=== PATIENT | male | born 1945 | race Caucasian/White ===

== ENCOUNTER 2018-08-13 12:36 | Inpatient (IN) | payer MEDICARE ==
--- NOTE | 2018-08-13 13:33 | ED ---
General Adult HPI - General Chief complaint: Weakness Stated complaint: weakness Source: patient, family Mode of arrival: wheelchair Limitations: no limitations - History of Present Illness Initial comments: Dictation was produced using [employer] dictation software. please excuse any grammatical, word or spelling errors. Chief Complaint: 73-year-old male past medical history of hypertension, atrial fibrillation, dyslipidemia, coronary artery disease presents with worsening weakness. History of Present Illness: Patient is a 73 year old male with multiple comorbidities presents with worsening weakness. Patient used to live in [place] moved to [place] as a nursing home plan. However, since his debility began to worsen and his medical problems became more severe [facility] [place] where his family is. Patient just got establish with a primary care physician. He has a scheduled echocardiogram next week. He also had some blood tests performed. Patient does have a history of cardiac disease however does not know exactly what it is. Patient's been on Xarelto for irregular heartbeat in the past. Patient has no complaints at this time. He was brought here by his who states that his physical debility has been acutely worsening in the last 34 weeks per she is noticed a severe decline weekly. He has been having difficulty walking and getting dressed. The ROS documented in this emergency department record has been reviewed and confirmed by me. Those systems with pertinent positive or negative responses have been documented in the HPI. All other systems are other negative and/or noncontributory. - Related Data Home Medications Medication Instructions Recorded Confirmed Allopurinol [Zyloprim] 100 mg PO DAILY 08/13/18 08/13/18 Aspirin [Adult Low Dose Aspirin EC] 81 mg PO DAILY 08/13/18 08/13/18 Calcium Carbonate [Calcium] 600 mg PO DAILY 08/13/18 08/13/18 Furosemide [Lasix] 20 mg PO BID 08/13/18 08/13/18 Levothyroxine Sodium [Synthroid] 88 mcg PO DAILY 08/13/18 08/13/18 Metoprolol Succinate [Toprol XL] 25 mg PO HS 08/13/18 08/13/18 Pravastatin Sodium [Pravachol] 20 mg PO HS 08/13/18 08/13/18 Quinapril HCl 40 mg PO DAILY 08/13/18 08/13/18 Allergies Allergy/AdvReac Type Severity Reaction Status Date / Time No Known Allergies Allergy Verified 08/13/18 13:31 Review of Systems ROS Statement: Those systems with pertinent positive or pertinent negative responses have been documented in the HPI. ROS Other: All systems not noted in ROS Statement are negative. Past Medical History Past Medical History: Hypertension, Prostate Disorder History of Any Multi-Drug Resistant Organisms: None Reported Past Surgical History: Prostate Surgery Past Psychological History: No Psychological Hx Reported Smoking Status: Former smoker Past Alcohol Use History: Occasional Past Drug Use History: None Reported General Exam - General Exam Comments Initial Comments: PHYSICAL EXAM: General Impression: Alert and oriented x3, not in acute distress HEENT: Normocephalic atraumatic, extra-ocular movements intact, pupils equal and reactive to light bilaterally, mucous membranes moist. Cardiovascular: Heart regular rate and rhythm, S1&S2 audible, no murmurs, rubs or gallops Chest: Lungs clear to auscultation bilaterally, no rhonchi, no wheeze, no rales Abdomen: Bowel sounds present, abdomen soft, non-tender, non-distended, no organomegaly Musculoskeletal: Pulses present and equal in all extremities, pitting edema bilaterally Motor: Power 5/5 bilaterally, no focal deficits noted Neurological: CN II-XII grossly intact, no focal motor or sensory deficits noted Skin: Intact with no visualized rashes Psych: Normal affect and mood Limitations: no limitations Course Vital Signs 08/13/18 12:39 Temperature 97.6 F Pulse Rate 68 Respiratory 18 Rate Blood Pressure 173/78 O2 Sat by Pulse 97 Oximetry Medical Decision Making - Medical Decision Making ED course: 73-year-old male with multiple comorbidities presents with worsening difficulties with his activities of daily living. He has no specific complaints at this time. vital signs on arrival are within acceptable limits.Laboratory evaluation obtained. CBC is unremarkable. Coag panel is unremarkable. Metabolic panel is unremarkable. Urinalysis shows findings of urinary tract infection. Patient continues to endorse no significant pain to his flank region course empirically. Patient denies any genital pain. exam was performed showing no tenderness to the testicles. Patient denies any pain with bowel movements. Patient is significantly weak. I believe he would benefit from inpatient observation. Family is understandable and agreeable to this plan. Patient given 1 g of ceftriaxone. At this point there is no clinical suspicion of epididymitis or prostatitis. However patient has been having significant debility. EKG interpretation: Ventricular rate 69,. Interval to any, QRS 144, QTC 462. No ND prolongation, no QTC prolongation, no ST or T-wave changes noted. There is a right bundle branch pattern. Overall, this EKG is unremarkable - Lab Data Result diagrams: 08/13/18 13:15 08/13/18 13:15 Lab Results 08/13/18 08/13/18 08/13/18 Range/Units 13:15 13:15 13:15 WBC 7.1 (3.8-10.6) k/uL RBC 4.98 (4.30-5.90) m/uL Hgb 15.5 (13.0-17.5) gm/dL Hct 46.2 (39.0-53.0) % MCV 92.8 (80.0-100.0) fL MCH 31.0 (25.0-35.0) pg MCHC 33.4 (31.0-37.0) g/dL RDW 14.0 (11.5-15.5) % Plt Count 167 (150-450) k/uL Neutrophils % 72 % Lymphocytes % 14 % Monocytes % 8 % Eosinophils % 4 % Basophils % 0 % Neutrophils # 5.1 (1.3-7.7) k/uL Lymphocytes # 1.0 (1.0-4.8) k/uL Monocytes # 0.6 (0-1.0) k/uL Eosinophils # 0.3 (0-0.7) k/uL Basophils # 0.0 (0-0.2) k/uL PT (9.0-12.0) sec INR (<1.2) APTT (22.0-30.0) sec Sodium 141 (137-145) mmol/L Potassium 4.7 (3.5-5.1) mmol/L Chloride 107 (98-107) mmol/L Carbon Dioxide 27 (22-30) mmol/L Anion Gap 7 mmol/L BUN 29 H (9-20) mg/dL Creatinine 1.26 H (0.66-1.25) mg/dL Est GFR (CKD-EPI)AfAm 64 (>60 ml/min/1.73 sqM) Est GFR (CKD-EPI)NonAf 55 (>60 ml/min/1.73 sqM) Glucose 99 (74-99) mg/dL Plasma Lactic Acid Corwin (0.7-2.0) mmol/L Calcium 9.6 (8.4-10.2) mg/dL Magnesium 2.3 (1.6-2.3) mg/dL Total Bilirubin 0.9 (0.2-1.3) mg/dL AST 18 (17-59) U/L ALT 26 (21-72) U/L Alkaline Phosphatase 102 (38-126) U/L Total Creatine Kinase 42 L (55-170) U/L CK-MB (CK-2) 0.8 (0.0-2.4) ng/mL CK-MB (CK-2) Rel Index 1.9 Troponin I <0.012 (0.000-0.034) ng/mL Total Protein 7.0 (6.3-8.2) g/dL Albumin 3.8 (3.5-5.0) g/dL Urine Color Urine Appearance (Clear) Urine pH (5.0-8.0) Ur Specific Aqu[place] (1.001-1.035) Urine Protein (Negative) Urine Glucose (UA) (Negative) Urine Ketones (Negative) Urine Blood (Negative) Urine Nitrite (Negative) Urine Bilirubin (Negative) Urine Urobilinogen (<2.0) mg/dL Ur Leukocyte Esterase (Negative) Urine RBC (0-5) /hpf Urine WBC (0-5) /hpf Ur Squamous Epith Cells (0-4) /hpf 08/13/18 08/13/18 08/13/18 Range/Units 13:15 13:45 14:10 WBC (3.8-10.6) k/uL RBC (4.30-5.90) m/uL Hgb (13.0-17.5) gm/dL Hct (39.0-53.0) % MCV (80.0-100.0) fL MCH (25.0-35.0) pg MCHC (31.0-37.0) g/dL RDW (11.5-15.5) % Plt Count (150-450) k/uL Neutrophils % % Lymphocytes % % Monocytes % % Eosinophils % % Basophils % % Neutrophils # (1.3-7.7) k/uL Lymphocytes # (1.0-4.8) k/uL Monocytes # (0-1.0) k/uL Eosinophils # (0-0.7) k/uL Basophils # (0-0.2) k/uL PT 9.8 (9.0-12.0) sec INR 1.0 (<1.2) APTT 20.1 L (22.0-30.0) sec Sodium (137-145) mmol/L Potassium (3.5-5.1) mmol/L Chloride (98-107) mmol/L Carbon Dioxide (22-30) mmol/L Anion Gap mmol/L BUN (9-20) mg/dL Creatinine (0.66-1.25) mg/dL Est GFR (CKD-EPI)AfAm (>60 ml/min/1.73 sqM) Est GFR (CKD-EPI)NonAf (>60 ml/min/1.73 sqM) Glucose (74-99) mg/dL Plasma Lactic Acid Corwin 1.0 (0.7-2.0) mmol/L Calcium (8.4-10.2) mg/dL Magnesium (1.6-2.3) mg/dL Total Bilirubin (0.2-1.3) mg/dL AST (17-59) U/L ALT (21-72) U/L Alkaline Phosphatase (38-126) U/L Total Creatine Kinase (55-170) U/L CK-MB (CK-2) (0.0-2.4) ng/mL CK-MB (CK-2) Rel Index Troponin I (0.000-0.034) ng/mL Total Protein (6.3-8.2) g/dL Albumin (3.5-5.0) g/dL Urine Color Yellow Urine Appearance Cloudy (Clear) Urine pH 6.0 (5.0-8.0) Ur Specific Aqu[place] 1.019 (1.001-1.035) Urine Protein 1+ H (Negative) Urine Glucose (UA) Negative (Negative) Urine Ketones Negative (Negative) Urine Blood Small H (Negative) Urine Nitrite Positive (Negative) Urine Bilirubin Negative (Negative) Urine Urobilinogen <2.0 (<2.0) mg/dL Ur Leukocyte Esterase Large H (Negative) Urine RBC 30 H (0-5) /hpf Urine WBC >182 H (0-5) /hpf Ur Squamous Epith Cells <1 (0-4) /hpf Disposition Clinical Impression: Complicated urinary tract infection Disposition: ADMITTED IP TO THIS HOSP Condition: Fair Is patient prescribed a controlled substance at d/c from ED?: No Referrals: George Renteria MD [Primary Care Provider] - 1-2 days Decision Time: 15:19
[2018-08-13 13:36] LABS: Basophils % (A) 0 %; Eosinophils # (A) 0.3 k/uL (0-0.7); Eosinophils % (A) 4 %; HCT 46.2 % (39.0-53.0); HGB 15.5 gm/dL (13.0-17.5); Lymphocytes % (A) 14 %; MCHC 33.4 g/dL (31.0-37.0); MCV 92.8 fL (80.0-100.0); Mean Platelet Volume 9.1; Monocytes # (A) 0.6 k/uL (0-1.0); Monocytes % (A) 8 %; Neutrophils # (A) 5.1 k/uL (1.3-7.7); Neutrophils % (A) 72 %; Platelet Count 167 k/uL (150-450); RBC 4.98 m/uL (4.30-5.90); WBC 7.1 k/uL (3.8-10.6)
[2018-08-13 13:46] LABS: Albumin 3.8 g/dL (3.5-5.0); Calcium 9.6 mg/dL (8.4-10.2); Magnesium 2.3 mg/dL (1.6-2.3); Potassium 4.7 mmol/L (3.5-5.1); Total Bilirubin 0.9 mg/dL (0.2-1.3)
[2018-08-13 13:56] LABS: Creatine Kinase 42 U/L (55-170)
[2018-08-13 14:08] LABS: Creatine Kinase MB 0.8 ng/mL (0.0-2.4); Troponin I <0.012 ng/mL (0.000-0.034)
[2018-08-13 14:34] LABS: Appearance,Urine Cloudy (Clear); Bilirubin,Urine Negative (Negative); Blood,Urine Small (Negative); Color,Urine Yellow; Glucose,Urine (UA) Negative (Negative); Ketones,Urine Negative (Negative); Leukocyte Esterase,Urine Large (Negative); Nitrite,Urine Positive (Negative); Protein,Urine 1+ (Negative); RBC,Urine 30 /hpf (0-5); Specific Gravity,Urine 1.019 (1.001-1.035); Squamous Epithelial Cell,Urine <1 /hpf (0-4); Urobilinogen,Urine <2.0 mg/dL (<2.0); WBC,Urine >182 /hpf (0-5)
--- NOTE | 2018-08-13 14:36 | CT ---
EXAMINATION TYPE: CT brain wo con DATE OF EXAM: 08/13/2018 COMPARISON: None HISTORY: Weakness CT DLP: 1266.4 mGycm Automated exposure control for dose reduction was used. TECHNIQUE: CT scan of the head is performed without contrast. FINDINGS: There is no acute intracranial hemorrhage or midline shift identified. There is diffuse v entricular and sulcal prominence consistent with diffuse age-related cerebral atrophy. Old CSF attenu ated lacunar injuries are seen of the rebolledo radiata bilaterally on image 35 and 38 on the left. Left basal ganglia calcifications are incidentally seen inferiorly. There is low-attenuation in the periv entricular white matter consistent with chronic small vessel ischemic change. The globes are intact. Mild mucosal thickening is seen within the right maxillary sinus, sphenoid sinus, and ethmoid sinuse s. Remaining paranasal sinuses and mastoid air cells are well aerated. Osteoma is incidentally seen w ithin the right frontal sinus. IMPRESSION: No acute intracranial hemorrhage or midline shift. Bilateral old rebolledo radiata lacunar injuries, diffuse age-related cerebral atrophy and chronic small vessel ischemic change noted.
[2018-08-13 14:39] LABS: Prothrombin Time 9.8 sec (9.0-12.0)
[2018-08-13 14:42] LABS: Partial Thromboplastin Time 20.1 sec (22.0-30.0)
--- NOTE | 2018-08-13 14:45 | XR ---
EXAMINATION TYPE: XR chest 2V DATE OF EXAM: 08/13/2018 COMPARISON: NONE HISTORY: Weakness TECHNIQUE: Frontal and lateral views of the chest are obtained. FINDINGS: There is no focal air space opacity, pleural effusion, or pneumothorax seen. Minimal pulmo nary vascular congestion is seen. The cardiac silhouette size is mildly enlarged. The osseous stru ctures are intact. IMPRESSION: Cardiac enlargement and mild pulmonary vascular congestion suggest mild decompensated co ngestive heart failure.
[2018-08-13] MEDS ORDERED: NALOXONE 0.4 MG/ML 1 ML VIAL IV PRN (15:19)
[2018-08-13] MEDS ORDERED: ACETAMINOPHEN TAB 325 MG TAB PO PRN (15:19)
[2018-08-13] MEDS ORDERED: ONDANSETRON 4 MG/2 ML VIAL IVP PRN (15:19)
[2018-08-13] MEDS: SODIUM CHLORIDE 0.9% 1,000 ML IV SCH (16:03)
[2018-08-13 18:17] VITALS: BMI 29.9
[2018-08-13] MEDS: METOPROLOL SUCCINATE (ER) 25 MG TAB.ER.24H PO SCH (22:00)
[2018-08-13] MEDS: PRAVASTATIN SODIUM 20 MG TAB PO SCH (22:00)
[2018-08-14] MEDS: LEVOTHYROXINE 88 MCG TAB PO SCH (05:50)
[2018-08-14] MEDS: hydrALAZINE HCL 20 MG/ML 1 ML VIAL IVP PRN (06:44)
[2018-08-14] MEDS: TAMSULOSIN 0.4 MG CAP.ER.24H PO SCH (06:44)
[2018-08-14] MEDS: CALCIUM CARBONATE 500 MG CHEWABLE PO SCH (08:25)
[2018-08-14] MEDS: ALLOPURINOL 100 MG TAB PO SCH (08:25)
[2018-08-14] MEDS: ASPIRIN 81 MG PO SCH (08:25)
--- NOTE | 2018-08-14 16:17 | P.HPIM ---
History of Present Illness H&P Date: 08/14/18 73 years old male patient of mine who I just establish a month ago comes in with increased weakness, shortness of breath, balance abnormality with confusion according to the bedside. Patient has a past medical history of hypertension, atrial fibrillation not on any anticoagulation except for aspirin , hyperlipidemia, no history of coronary artery disease nor diabetes.patient has a history of BPH and some surgical procedure done in [place] which was followed by hematuria leading to holding of her liquids. on evaluation, patient stated he feels better than yesterday. He does have some degree of gait instability. Vitals assessed in the ER suggested temp of 98.3, pulse rate 67, blood pressure 144/73 saturating well on room air. Labs suggestive of creatinine 1.29, BUN 29 no baseline available. Urinalysis was positive for urinary tract infection. Patient was initiated on ceftriaxone in the ER received was told. There is a concern for CHF with patient's increased shortness of breath and episode of dizziness at home. Echocardiogram is ordered. BNP ordered. Hold Lasix for concern of acute kidney injury though patient may have some chronic kidney disease. Monitor daily weights and input and output. Orthostatics ordered. Review of Systems Constitutional: Denies chills, Denies fever, increased weakness Eyes: denies decreased vision, denies diplopia, denies discharge, denies pain Ears: deny: decreased hearing Ears, nose, mouth and throat: Denies dental pain, Denies headache, Denies nasal discharge, Denies nose pain Cardiovascular: Denies chest pain, Denies decreased exercise tolerance, Denies edema, Denies high blood pressure, Denies irregular heart beat, Denies palpitations, Denies paroxysmal nocturnal dyspnea, Denies rapid heart beat, endorses shortness of breath Respiratory: Denies congestion, Denies cough, Denies cough with sputum, endorses dyspnea, Denies home oxygen, Denies wheezing Gastrointestinal: Denies abdominal pain, Denies change in bowel habits, Denies coffee ground emesis, Denies early satiety, Denies excessive gas, Denies heartburn, Denies hematemesis, Denies hematochezia, Denies loss of appetite, Denies nausea, Denies vomiting Genitourinary: Denies dysuria, Denies flank pain, Denies kidney stones, Denies menorrhagia, Denies urgency, Denies urinary frequency endorses urinary retention and daily straight cath 4 times a day Musculoskeletal: Denies gait dysfunction, Denies limitation of motion, Denies morning stiffness, Denies muscle cramps Integumentary: Denies rash, Denies wounds, Denies brittle nails, Denies change in hair/nails, Denies darkening of skin Neurological: Denies balance difficulties, Denies change in speech, Denies double vision, Denies gait dysfunction, Denies loss of vision, Denies motor disturbance, Denies numbness, Denies paralysis, Denies paresthesias, Denies seizures Psychiatric: Denies anxiety, Denies depression Endocrine: Denies excessive sweating, Denies excessive thirst, Denies high blood sugars, Denies palpitations Hematologic/Lymphatic: Denies easy bruising, Denies lymphadenopathy Past Medical History Past Medical History: Hypertension, Prostate Disorder History of Any Multi-Drug Resistant Organisms: None Reported Past Surgical History: Prostate Surgery Past Psychological History: No Psychological Hx Reported Additional Psychological History / Comment(s): lives at home with . Smoking Status: Former smoker Past Alcohol Use History: Occasional Past Drug Use History: None Reported - Past Family History Mother Family Medical History: Cancer Additional Family Medical History / Comment(s): Breast cancer Father Family Medical History: Cancer (Bone cancer/brittle bone disease) Medications and Allergies Home Medications Medication Instructions Recorded Confirmed Type Allopurinol [Zyloprim] 100 mg PO DAILY 08/13/18 08/13/18 History Aspirin [Adult Low Dose Aspirin EC] 81 mg PO DAILY 08/13/18 08/13/18 History Calcium Carbonate [Calcium] 600 mg PO DAILY 08/13/18 08/13/18 History Furosemide [Lasix] 20 mg PO BID 08/13/18 08/13/18 History Levothyroxine Sodium [Synthroid] 88 mcg PO DAILY 08/13/18 08/13/18 History Metoprolol Succinate [Toprol XL] 25 mg PO HS 08/13/18 08/13/18 History Pravastatin Sodium [Pravachol] 20 mg PO HS 08/13/18 08/13/18 History Quinapril HCl 40 mg PO DAILY 08/13/18 08/13/18 History Allergies Allergy/AdvReac Type Severity Reaction Status Date / Time No Known Allergies Allergy Verified 08/13/18 13:31 Physical Exam Vitals: Vital Signs Temp Pulse Pulse Resp BP BP Pulse Ox 08/14/18 15:19 18 08/14/18 15:09 97.3 F L 67 18 138/63 95 08/14/18 13:36 98.3 F 67 18 144/73 97 08/14/18 08:34 169/94 08/14/18 08:00 16 08/14/18 05:51 98.3 F 55 L 16 200/85 94 L 08/13/18 23:50 185/89 08/13/18 22:41 98.0 F 56 L 18 95 08/13/18 17:30 56 L 18 182/80 95 08/13/18 16:10 62 18 182/68 94 L 08/13/18 16:03 68 18 170/76 Intake and Output 08/14/18 08/14/18 08/14/18 06:59 14:59 22:59 Output Total 200 Balance -200 Output: Urine 200 Other: Voiding Method Urinal Urinal Urinal Self-Catheterization # Voids 0 # Bowel Movements 0 # Emeses 0 - Constitutional General appearance: cooperative, no acute distress, obese - EENT Eyes: anicteric sclerae, PERRLA, normal appearance ENT: hearing grossly normal - Neck Neck: no lymphadenopathy, normal ROM, no other, no rigidity, no stridor, no thyromegaly - Respiratory Respiratory: bilateral: CTA, negative: diminished, dullness, rales, rhonchi - Cardiovascular Rhythm: regular Heart sounds: normal: S1, S2 Abnormal Heart Sounds: no systolic murmur, no diastolic murmur, no rub, no S3 Gallop, no S4 Gallop, no click - Gastrointestinal General gastrointestinal: normal bowel sounds, soft - Integumentary Integumentary: no rash - Neurologic Neurologic: CNII-XII intact resting tremor in bilateral hands no nystagmus finger to nose test normal - Musculoskeletal Musculoskeletal: Ataxic gait, strength equal bilaterally - Psychiatric Psychiatric: A&O x's 3, appropriate affect Results CBC & Chem 7: 08/13/18 13:15 08/13/18 13:15 Labs: Microbiology - Last 24 Hours (Table) 08/13/18 13:25 Urine Culture - Preliminary Urine,Clean Catch Thrombosis Risk Factor Assmnt - DVT/VTE Prophylaxis DVT/VTE Prophylaxis: Pharmacologic Prophylaxis ordered, Mechanical Prophylaxis ordered - Choose All That Apply Any of the Below Risk Factors Present?: Yes Each Factor Represents 1 point: Obesity (BMI >25) Other Risk Factors: Yes Each Risk Factor Represents 3 Points: Age 75 years or older Thrombosis Risk Factor Assessment Total Risk Factor Score: 4 Thrombosis Risk Factor Assessment Level: Moderate Risk Assessment and Plan Plan: #1 acute shortness of breath with dizziness. Chest x-ray concerning for acute decompensated heart failure. Lasix initiated at 20 mg IV twice a day. INR monitoring. Daily weight. BNP ordered. Echocardiogram ordered. #2 acute dizziness unclear etiology. Echocardiogram ordered to rule out worsening cardiac functions. Orthostatic ordered. #3 acute kidney injury secondary to ATN patient is on Lasix and lisinopril with possible CK D. No baseline creatinine available. Monitor kidney functions. Continue Lasix 20 IV twice a day for CHF #4 BPH with urinary retention. Straight cath 4 times a day. Had history of surgical procedure prior to moving from [place]. Unclear of the type of surgery. urology consulted for evaluation of urinary retention and need for straight cath. #5 urinary tract infection likely secondary to catheter. Continue ceftriaxone 1 g by mouth daily. Urine culture pending #6 DVT prophylaxis with heparin every 12 #7 CODE STATUS full code
[2018-08-14] MEDS: SODIUM CHLORIDE 0.9% 1,000 ML IV SCH (17:36)
--- NOTE | 2018-08-14 17:47 | P.GSCN ---
History of Present Illness Consult date: 08/14/18 Reason for Consult: Urinary retention Requesting physician: George Renteria History of present illness: 73 years old white male admitted yesterday with increased weakness, shortness of breath, impaired balance, and confusion. He is being treated with IV hydration and antibiotics, and states that he is feeling better. He underwent a TURP in [place] in 2017 for incomplete bladder emptying due to BPH. However, he continues to empty his bladder incompletely and for this reason performs intermittent self-catheterization 4 times daily. He catheterizes using a 16- Maltese catheter, without difficulty. He denies dysuria and reports infrequent hematuria. He states that his voided volumes are greater than his catheterization volumes. Review of Systems - Constitutional Reports weakness, Denies chills, Denies fever - Cardiovascular Reports shortness of breath - Genitourinary Denies dysuria - Psychiatric Reports confusion Past Medical History Past Medical History: Hypertension, Prostate Disorder History of Any Multi-Drug Resistant Organisms: None Reported Past Surgical History: Prostate Surgery Past Psychological History: No Psychological Hx Reported Additional Psychological History / Comment(s): lives at home with . Smoking Status: Former smoker Past Alcohol Use History: Occasional Past Drug Use History: None Reported - Past Family History Mother Family Medical History: Cancer Additional Family Medical History / Comment(s): Breast cancer Father Family Medical History: Cancer (Bone cancer/brittle bone disease) Medications and Allergies Home Medications Medication Instructions Recorded Confirmed Type Allopurinol [Zyloprim] 100 mg PO DAILY 08/13/18 08/13/18 History Aspirin [Adult Low Dose Aspirin EC] 81 mg PO DAILY 08/13/18 08/13/18 History Calcium Carbonate [Calcium] 600 mg PO DAILY 08/13/18 08/13/18 History Furosemide [Lasix] 20 mg PO BID 08/13/18 08/13/18 History Levothyroxine Sodium [Synthroid] 88 mcg PO DAILY 08/13/18 08/13/18 History Metoprolol Succinate [Toprol XL] 25 mg PO HS 08/13/18 08/13/18 History Pravastatin Sodium [Pravachol] 20 mg PO HS 08/13/18 08/13/18 History Quinapril HCl 40 mg PO DAILY 08/13/18 08/13/18 History Allergies Allergy/AdvReac Type Severity Reaction Status Date / Time No Known Allergies Allergy Verified 08/13/18 13:31 Surgical - Exam Vital Signs Temp Pulse Resp BP Pulse Ox 97.6 F 68 18 173/78 97 08/13/18 12:39 08/13/18 12:39 08/13/18 12:39 08/13/18 12:39 08/13/18 12:39 - General well developed, well nourished, no distress - Respiratory normal respiratory effort - Abdomen Abdomen: soft, non tender, no guarding, no rigid, no rebound - Genitourinary normal penis with no external lesions, testicles non-tender - Rectum Rectum: normal sphincter tone, no masses, other (Prostate 30-40 g in size, smooth in consistency) - Psychiatric oriented to time, oriented to person, oriented to place, speech is normal, memory intact Results - Labs 08/13/18 13:15 08/13/18 13:15 Microbiology - Last 24 Hours (Table) 08/13/18 13:25 Urine Culture - Preliminary Urine,Clean Catch Assessment and Plan (1) Incomplete bladder emptying Current Visit: Yes Status: Acute Code(s): R33.9 - RETENTION OF URINE, UNSPECIFIED SNOMED Code(s): 355559974 (2) Complicated urinary tract infection Current Visit: Yes Status: Acute Code(s): N39.0 - URINARY TRACT INFECTION, SITE NOT SPECIFIED SNOMED Code(s): 57428368 Plan: The patient is a somewhat vague historian. He performs intermittent self- catheterization 4 times daily, though I believe this is likely unnecessary. He does not intend to return to his portal urologist. For the time being, I would suggest that he continue his current self-catheterization schedule. Once the urine culture was completed, he may be discharged home on culture appropriate oral antibiotics. I have suggested he keep a catheterization diary, consisting of time and catheterization volume, so that his regimen may be adjusted if appropriate. He will follow-up with me in 2 weeks to review this. Please notify me if I can be of any further assistance during this hospitalization. Time with Patient: Greater than 30
[2018-08-14] MEDS: METOPROLOL SUCCINATE (ER) 25 MG TAB.ER.24H PO SCH (21:37)
[2018-08-14] MEDS: PRAVASTATIN SODIUM 20 MG TAB PO SCH (21:37)
[2018-08-14] MEDS: HEPARIN SODIUM,PORCINE 5,000 UNIT/ML 1 ML VIAL SQ SCH (21:38)
[2018-08-14] MEDS: FUROSEMIDE 10 MG/ML 2 ML VIAL IV SCH (22:05)
[2018-08-15] MEDS: hydrALAZINE HCL 20 MG/ML 1 ML VIAL IVP PRN (06:44)
[2018-08-15] MEDS: LEVOTHYROXINE 88 MCG TAB PO SCH (06:44)
[2018-08-15 08:47] LABS: Basophils % (A) 0 %; Eosinophils # (A) 0.2 k/uL (0-0.7); Eosinophils % (A) 3 %; HCT 49.2 % (39.0-53.0); HGB 15.5 gm/dL (13.0-17.5); Lymphocytes # (A) 0.8 k/uL (1.0-4.8); Lymphocytes % (A) 13 %; MCH 30.3 pg (25.0-35.0); MCHC 31.5 g/dL (31.0-37.0); MCV 96.4 fL (80.0-100.0); Mean Platelet Volume 9.5; Monocytes # (A) 0.6 k/uL (0-1.0); Monocytes % (A) 10 %; Neutrophils # (A) 4.6 k/uL (1.3-7.7); Neutrophils % (A) 73 %; Platelet Count 167 k/uL (150-450); RBC 5.11 m/uL (4.30-5.90); RDW 14.3 % (11.5-15.5); WBC 6.3 k/uL (3.8-10.6)
[2018-08-15] MEDS: ALLOPURINOL 100 MG TAB PO SCH (08:57)
[2018-08-15] MEDS: TAMSULOSIN 0.4 MG CAP.ER.24H PO SCH (08:57)
[2018-08-15] MEDS: ASPIRIN 81 MG PO SCH (08:57)
[2018-08-15] MEDS: CALCIUM CARBONATE 500 MG CHEWABLE PO SCH (08:58)
[2018-08-15] MEDS: HEPARIN SODIUM,PORCINE 5,000 UNIT/ML 1 ML VIAL SQ SCH (08:58)
[2018-08-15 09:01] LABS: Albumin 3.7 g/dL (3.5-5.0); Calcium 9.2 mg/dL (8.4-10.2); Magnesium 2.1 mg/dL (1.6-2.3); Potassium 4.1 mmol/L (3.5-5.1); Total Bilirubin 0.9 mg/dL (0.2-1.3); Total Protein 6.5 g/dL (6.3-8.2)
[2018-08-15] MEDS: FUROSEMIDE 10 MG/ML 2 ML VIAL IV SCH (09:07)
--- NOTE | 2018-08-15 13:20 | ECHOF ---
Referral Reason:LVF MEASUREMENTS -------- HEIGHT: 182.9 cm WEIGHT: 99.8 kg BP: 169/94 IVSd: 1.1 cm (0.6 - 1.1) LVIDd: 4.9 cm (3.9 - 5.3) LVPWd: 1.2 cm (0.6 - 1.1) IVSs: 1.6 cm LVIDs: 2.7 cm LVPWs: 1.7 cm LAESV Index (A-L): 26.37 ml/m Ao Diam: 3.6 cm (2.0 - 3.7) AV Cusp: 2.1 cm (1.5 - 2.6) LA Diam: 3.5 cm (2.7 - 3.8) EPSS: 0.6 cm MV E Dayday: 0.77 m/s MV DecT: 375 ms MV A Dayday: 0.87 m/s MV E/A Ratio: 0.89 RAP: 5.00 mmHg RVSP: 34.05 mmHg MV EF SLOPE: 49.53 mm/s (70 - 150) MV EXCURSION: 1.59 cm (> 18.000) FINDINGS -------- Sinus rhythm. This was a technically adequate study. The left ventricular size is normal. There is mild concentric left ventricular hypertrophy. Overa ll left ventricular systolic function is normal with, an EF between 55 - 60 %. The right ventricle is normal in size and function. Normal LA size by volume 22+/-6 ml/m2. The right atrium is normal in size. There is mild aortic valve sclerosis. There is no evidence of aortic regurgitation. There is no e vidence of aortic stenosis. The mitral valve leaflets are mildly thickened. Mild mitral regurgitation is present. Mild tricuspid regurgitation present. There is no evidence of pulmonary hypertension. The right v entricular systolic pressure, as measured by Doppler, is 34.05mmHg. Trace/mild (physiologic) pulmonic regurgitation. The aortic root size is normal. Normal inferior vena cava with normal inspiratory collapse consistent with estimated right atrial pre ssure of 5 mmHg. There is no pericardial effusion. CONCLUSIONS -------- 1. Sinus rhythm. 2. This was a technically adequate study. 3. The left ventricular size is normal. 4. There is mild concentric left ventricular hypertrophy. 5. Overall left ventricular systolic function is normal with, an EF between 55 - 60 %. 6. Normal LA size by volume 22+/-6 ml/m2. 7. There is mild aortic valve sclerosis. 8. The mitral valve leaflets are mildly thickened. 9. Mild mitral regurgitation is present. 10. The right ventricular systolic pressure, as measured by Doppler, is 34.05mmHg. 11. Trace/mild (physiologic) pulmonic regurgitation. 12. The aortic root size is normal. 13. There is no pericardial effusion. MARKETING ANALYTICS ANALYST: Kameron Stevens RDCS
[2018-08-15 15:08] VITALS: BP 131/56; PULSE 77; RESP 18; TEMP 98.5
--- NOTE | 2018-08-15 15:45 | P.DS ---
Providers Date of admission: 08/13/18 15:19 Expected date of discharge: 08/15/18 Attending physician: George Renteria MD Consults: 08/14/18 06:17 Consult Physician Routine Consulting Provider: Zechariah Saavedra Consult Reason/Comments: Retention, UTI Do you want consulting provider notified?: Already Contacted Primary care physician: George Renteria MD Hospital Course: 73 years old male patient of mine who I just establish a month ago comes in with increased weakness, shortness of breath, balance abnormality with confusion according to the bedside. Patient has a past medical history of hypertension, atrial fibrillation not on any anticoagulation except for aspirin , hyperlipidemia, no history of coronary artery disease nor diabetes.patient has a history of BPH and some surgical procedure done in [place] which was followed by hematuria leading to holding of her liquids. on evaluation, patient stated he feels better than yesterday. He does have some degree of gait instability. Vitals assessed in the ER suggested temp of 98.3, pulse rate 67, blood pressure 144/73 saturating well on room air. Labs suggestive of creatinine 1.29, BUN 29 no baseline available. Urinalysis was positive for urinary tract infection. Patient was initiated on ceftriaxone in the ER received was told. There is a concern for CHF with patient's increased shortness of breath and episode of dizziness at home. Echocardiogram is ordered. BNP ordered. Hold Lasix for concern of acute kidney injury though patient may have some chronic kidney disease. Monitor daily weights and input and output. Orthostatics ordered. 08/15: Patient has been seen by Dr. Saavedra with recommendations to continue current self-catheterization schedule. Discharge home once culture is available on oral antibiotics. Patient is to keep a catheterization diarrhea consisting of time and volume and follow-up with Dr. Saavedra in 2 weeks to review. Echocardiogram reveals EF of 55-60% with mild concentric left ventricular hypertrophy, mild mitral regurgitation. Patient will be discharged home today in stable condition. A prescription for a walker will be provided. Urine culture is preliminarily with gram-negative bacilli. Discharge diagnoses: #1 acute shortness of breath with dizziness secondary to dehydration #2 acute dizziness unclear etiology secondary to dehydration. Heart failure has been ruled out. #3 acute kidney injury secondary to ATN #4 BPH with urinary retention. #5 urinary tract infection likely secondary to catheter. Discharge plan: Return home Impression and plan of care have been directed as dictated by the signing physician. Mili Nagy nurse practitioner acting as scribe for signing physician. Patient Condition at Discharge: Good Plan - Discharge Summary New Discharge Prescriptions: New amLODIPine BESYLATE [Norvasc] 10 mg PO DAILY #30 tablet Levofloxacin [Levaquin] 500 mg PO DAILY #10 tab Tamsulosin [Flomax] 0.4 mg PO PC-BRKFST #30 cap.er.24h Continue Calcium Carbonate [Calcium] 600 mg PO DAILY Quinapril HCl 40 mg PO DAILY Pravastatin Sodium [Pravachol] 20 mg PO HS Metoprolol Succinate [Toprol XL] 25 mg PO HS Levothyroxine Sodium [Synthroid] 88 mcg PO DAILY Furosemide [Lasix] 20 mg PO BID Allopurinol [Zyloprim] 100 mg PO DAILY Aspirin [Adult Low Dose Aspirin EC] 81 mg PO DAILY Discharge Medication List Allopurinol [Zyloprim] 100 mg PO DAILY 08/13/18 [History] Aspirin [Adult Low Dose Aspirin EC] 81 mg PO DAILY 08/13/18 [History] Calcium Carbonate [Calcium] 600 mg PO DAILY 08/13/18 [History] Furosemide [Lasix] 20 mg PO BID 08/13/18 [History] Levothyroxine Sodium [Synthroid] 88 mcg PO DAILY 08/13/18 [History] Metoprolol Succinate [Toprol XL] 25 mg PO HS 08/13/18 [History] Pravastatin Sodium [Pravachol] 20 mg PO HS 08/13/18 [History] Quinapril HCl 40 mg PO DAILY 08/13/18 [History] Levofloxacin [Levaquin] 500 mg PO DAILY #10 tab 08/15/18 [Rx] Tamsulosin [Flomax] 0.4 mg PO PC-BRKFST #30 cap.er.24h 08/15/18 [Rx] amLODIPine BESYLATE [Norvasc] 10 mg PO DAILY #30 tablet 08/15/18 [Rx] Follow up Appointment(s)/Referral(s): George Renteria MD [Primary Care Provider] - 08/17/18 10:00 am [facility], [NON-STAFF] - Rafael Monsalve MD [STAFF PHYSICIAN] - 1 Week Patient Instructions/Handouts: Urinary Tract Infection in Men (GEN) Activity/Diet/Wound Care/Special Instructions: KEEP UROLOGY APPT THAT IS ALREADY MADE WITH UROLOGY. PT TO KEEP A CATHERIZATION DIARY AND BRING TO UROLOGY FOLLOWUP. PATIENT MAY NEED TO BE HELPED/REMINDED. RX FOR WALKER GIVEN. RECCOMENDED FOR FALL PREVENTION. CARDIAC DIET- LIMIT SALT. TAake Fureosemide (Lasix) pill every other day if swelling in legs occur. Walker supplied by [facility] [phone] Discharge Disposition: HOME WITH HOME HEALTH SERVICES
--- NOTE | 2018-08-18 08:39 | CDI ---
Last Revision, August 2017 Documentation Clarification Form Date: 08/18/18 From: Delia Zuleta Phone: If you have a question regarding this query, please contact Zaira Tyson at [phone] between 8am and 5pm. Admit Date: 08/15/2018 8:52:00 AM Patient Name: Rafael Hui Visit Number: [id number] Discharge Date: 08/15/18 ATTENTION: The Clinical Documentation Specialists (CDI) and [facility] Coding Staff appreciate your assistance in clarifying documentation. Please respond to the clarification below the line at the bottom and electronically sign. The CDI & [facility] Coding staff will review the response and follow-up if needed. Please note: Queries are made part of the Legal Health Record. If you have any questions, please contact the author of this message via ITS. George Desouza MD/Mili Nagy NP-C Atrial fibrillation is documented in the past medical history of the ED note, H& P and discharge summary. History/Risk Factors: Patient has a history of hypertension. Clinical Indicators: No acute atrial fib documented during this stay. EKG/telemetry: Per ED physician, ventricular rate 69, overall, this EKG is unremarkable. Treatment: Not on any medication except for aspirin. In your professional opinion, can you please clarify the type of atrial fibrillation, if known? Chronic/Permanent Paroxysmal Persistent Other, please specify Unable to determine unable to determine, patient document previous history of Atrial fib ____ MTDD
--- NOTE | 2018-08-18 09:21 | CDI ---
Last Revision, August 2017 Documentation Clarification Form Date: 08/18/18 From: Delia Zuleta Phone: If you have a question regarding this query, please contact Zaira Tyson at [phone] between 8am and 5pm. Admit Date: 08/15/2018 8:52:00 AM Patient Name: Rafael Hui Visit Number: [id number] Discharge Date: 08/15/18 ATTENTION: The Clinical Documentation Specialists (CDI) and [facility] Coding Staff appreciate your assistance in clarifying documentation. Please respond to the clarification below the line at the bottom and electronically sign. The CDI & [facility] Coding staff will review the response and follow-up if needed. Please note: Queries are made part of the Legal Health Record. If you have any questions, please contact the author of this message via ITS. George Desouza MD/Mili Nair NP-C Acute Renal failure secondary to ATN is documented in the H&P and discharge summary. History Risk factors/Other underlying illness: Patient has a history of hypertension. Clinical Indicators: Elevated BUN. Patient presents with a BUN/CR and GFR of: 29/1.26/55 Patients baseline BUN/CR and GFR: 21/1.04/70 on discharge. Baseline is not available. Urinalysis: Protein 1+, blood - small, leukocyte esterase - large, RBC - 30, WBC - >182. No casts were found. Treatment: IV Lasix and lisinopril In your professional opinion, with the above findings can you please clarify the specificity of the AROLDO? Acute Renal Failure with Acute Tubular Necrosis Acute Renal Failure with Renal Cortical Necrosis Acute Renal Failure with other cause, please specify Unable to determine Other, please specify ____Acute renal failure with acute tubular necrosis MTDD
--- NOTE | 2018-08-28 14:48 | CDI ---
Documentation Clarification Form Date: 08/28/18 From: Delia Zuleta Phone: If you have a question regarding this query, please contact Zaira Tyson at [phone] between 8am and 5pm. Admit Date: 08/15/2018 8:52:00 AM Patient Name: Rafael Hui Visit Number: [id number] Discharge Date: 08/15/2018 4:08:00 PM ATTENTION: The Clinical Documentation Specialists (CDI) and [facility] Coding Staff appreciate your assistance in clarifying documentation. Please respond to the clarification below the line at the bottom and electronically sign. The CDI & [facility] Coding staff will review the response and follow-up if needed. Please note: Queries are made part of the Legal Health Record. If you have any questions, please contact the author of this message via ITS. Dr. George Renteria Thank you for signing query about this dx previously. Please document a response before signing this query. Atrial fibrillation is documented in the past medical history of the ED note, H& P and discharge summary. Clinical Indicators: No acute atrial fib documented during this stay. EKG/telemetry: Per ED physician, ventricular rate 69, overall, this EKG is unremarkable. Treatment: Not on any medication except for aspirin. In your professional opinion, can you please clarify the type of atrial fibrillation, if known? Chronic/Permanent Paroxysmal Persistent Other, please specify Unable to determine unable to determine, patient's document history of atrial fib MTDD
--- NOTE | 2018-08-28 14:51 | CDI ---
Documentation Clarification Form Date: 08/28/18 From: Delia Zuleta Phone: If you have a question regarding this query, please contact Zaira Tyson at [phone] between 8am and 5pm. Admit Date: 08/15/2018 8:52:00 AM Patient Name: Rafael Hui Visit Number: [id number] Discharge Date: 08/15/2018 4:08:00 PM ATTENTION: The Clinical Documentation Specialists (CDI) and [facility] Coding Staff appreciate your assistance in clarifying documentation. Please respond to the clarification below the line at the bottom and electronically sign. The CDI & [facility] Coding staff will review the response and follow-up if needed. Please note: Queries are made part of the Legal Health Record. If you have any questions, please contact the author of this message via ITS. Dr. George Renteria Thank you for signing query about this dx previously. Please document a response before signing this query. Acute Renal failure secondary to ATN is documented in the H&P and discharge summary. Clinical Indicators: Elevated BUN. Patient presents with a BUN/CR and GFR of: 29/1.26/55 Patients baseline BUN/CR and GFR: 21/1.04/70 on discharge. Baseline is not available. Urinalysis: Protein 1+, blood - small, leukocyte esterase - large, RBC - 30, WBC - >182. No casts were found. Treatment: IV Lasix and lisinopril ATN criteria not met. In your professional opinion, based on the above findings , please clinically validate which diagnosis is appropriate for this patient. ATN confirmed based on ATN ruled out AROLDO is prerenal Unable to determine Other, please specify ATN secondary to nephrotoxic agents, baseline in clinic is normal MTDD
== END 2018-08-15 16:08 | disposition home health service (06) | DRG 640 ==
LOC: EC 12:36 → 4MS4W 15:19 → OBSVTOIN 08-15 08:52
PROVIDERS: ADMIT Internal Medicine; ATTEND Internal Medicine
DX: E86.0 Dehydration (principal); N17.0 Acute kidney failure with tubular necrosis; T83.518A Infection and inflammatory reaction due to other urinary catheter, initial encounter; N39.0 Urinary tract infection, site not specified; E78.5 Hyperlipidemia, unspecified; I11.9 Hypertensive heart disease without heart failure; I34.0 Nonrheumatic mitral (valve) insufficiency; N40.1 Benign prostatic hyperplasia with lower urinary tract symptoms; R33.8 Other retention of urine; R26.89 Other abnormalities of gait and mobility; Y84.6 Urinary catheterization as the cause of abnormal reaction of the patient, or of later complication, without mention of misadventure at the time of the procedure; E66.9 Obesity, unspecified; Z68.29 Body mass index [BMI] 29.0-29.9, adult; Z79.82 Long term (current) use of aspirin; Z79.890 Hormone replacement therapy; Z79.899 Other long term (current) drug therapy; Z87.891 Personal history of nicotine dependence; Z80.8 Family history of malignant neoplasm of other organs or systems; Z80.3 Family history of malignant neoplasm of breast; I48.91 Unspecified atrial fibrillation; N14.2 Nephropathy induced by unspecified drug, medicament or biological substance
CPT/HCPCS: 36415; 70450; 71046; 80053; 81001; 82550; 82553; 83605; 83735; 83880; 84484; 85025; 85610; 85730; 87077; 87086; 87186; 93005; 93306; 96365; 99285

== ENCOUNTER 2018-08-16 16:41 | Observation (INO) | payer MEDICARE ==
[2018-08-16] MEDS ORDERED: SODIUM CHLORIDE 0.9% 1,000 ML IV STA (17:03)
--- NOTE | 2018-08-16 17:04 | ED ---
Syncope HPI - General Chief Complaint: Syncope Stated Complaint: syncope Time Seen by Provider: 08/16/18 17:03 Source: patient, EMS, RN notes reviewed, old records reviewed Mode of arrival: EMS Limitations: no limitations - History of Present Illness Initial Comments: This is a 73-year-old male with recent hospital admission, patient was admitted to the hospital for what ended up being a urinary tract infection, is been outpatient about foot activity will is decreased, patient is decreased. Patient not eating or drinking appropriately. Patient got up to go to the kitchen today for very faint weak and went to the ground. Denies trauma or injury from going to the ground. Denies headache chest pain shortness breath or abdominal pain currently MD Complaint: loss of consciousness, felt faint, collapsed -: days(s) Prodromal Symptoms: headache, vision changes, lightheaded -: second(s) Witnessed: yes - by bystander Injuries Sustained Associated with Event: None Current Symptoms: none Context: getting out of bed Treatments Prior to Arrival: none - Related Data Home Medications Medication Instructions Recorded Confirmed Allopurinol [Zyloprim] 100 mg PO DAILY 08/13/18 08/16/18 Aspirin [Adult Low Dose Aspirin EC] 81 mg PO DAILY 08/13/18 08/16/18 Calcium Carbonate [Calcium] 600 mg PO DAILY 08/13/18 08/16/18 Furosemide [Lasix] 20 mg PO BID 08/13/18 08/16/18 Levothyroxine Sodium [Synthroid] 88 mcg PO DAILY 08/13/18 08/16/18 Metoprolol Succinate [Toprol XL] 25 mg PO HS 08/13/18 08/16/18 Pravastatin Sodium [Pravachol] 20 mg PO HS 08/13/18 08/16/18 Quinapril HCl 40 mg PO DAILY 08/13/18 08/16/18 Previous Rx's Medication Instructions Recorded Levofloxacin [Levaquin] 500 mg PO DAILY #10 tab 08/15/18 Tamsulosin [Flomax] 0.4 mg PO PC-BRKFST #30 cap.er.24h 08/15/18 amLODIPine BESYLATE [Norvasc] 10 mg PO DAILY #30 tablet 08/15/18 Allergies Allergy/AdvReac Type Severity Reaction Status Date / Time No Known Allergies Allergy Verified 08/16/18 17:04 Review of Systems ROS Statement: Those systems with pertinent positive or pertinent negative responses have been documented in the HPI. ROS Other: All systems not noted in ROS Statement are negative. Past Medical History Past Medical History: Hypertension, Prostate Disorder History of Any Multi-Drug Resistant Organisms: None Reported Past Surgical History: Prostate Surgery Past Psychological History: No Psychological Hx Reported Smoking Status: Former smoker Past Alcohol Use History: Occasional Past Drug Use History: None Reported - Past Family History Mother Family Medical History: Cancer Additional Family Medical History / Comment(s): Breast cancer Father Family Medical History: Cancer (Bone cancer/brittle bone disease) General Exam Limitations: no limitations General appearance: alert, in no apparent distress Head exam: Present: atraumatic, normocephalic, normal inspection Eye exam: Present: normal appearance, PERRL, EOMI. Absent: scleral icterus, conjunctival injection, periorbital swelling ENT exam: Present: normal exam, mucous membranes moist Neck exam: Present: normal inspection. Absent: tenderness, meningismus, lymphadenopathy Respiratory exam: Present: normal lung sounds bilaterally. Absent: respiratory distress, wheezes, rales, rhonchi, stridor Cardiovascular Exam: Present: regular rate, normal rhythm, normal heart sounds. Absent: systolic murmur, diastolic murmur, rubs, gallop, clicks GI/Abdominal exam: Present: soft, normal bowel sounds. Absent: distended, tenderness, guarding, rebound, rigid Extremities exam: Present: normal inspection, full ROM, normal capillary refill. Absent: tenderness, pedal edema, joint swelling, calf tenderness Back exam: Present: normal inspection Neurological exam: Present: alert, oriented X3, CN II-XII intact Psychiatric exam: Present: normal affect, normal mood Skin exam: Present: warm, dry, intact, normal color. Absent: rash Course Vital Signs 08/16/18 08/16/18 08/16/18 16:54 19:11 21:31 Temperature 98.1 F Pulse Rate 75 91 93 Respiratory 18 18 18 Rate Blood Pressure 132/69 140/68 172/97 O2 Sat by Pulse 95 94 L 95 Oximetry - Reevaluation(s) Reevaluation #1: Clinical record and hospitalization or reviewed Patient currently without complaint no headache chest pain shortness of breath or abdominal pain Patient informed need to keep in hospital for hydration, VQ scan secondary to elevated d-dimer EKG Findings - EKG Comments: EKG Findings:: EKG shows sinus rhythm rate of 80, MD 208, QRS 1:30, QTc 44 Medical Decision Making - Medical Decision Making 73 male the ER for evasive syncopal event, patient is CT brain C-spine negative , no current headache. No injury or trauma. Patient be admitted for VQ scan to rule out PE or DVT. Patient had elevated d-dimer - Lab Data Result diagrams: 08/16/18 18:12 08/16/18 19:24 Lab Results 08/16/18 08/16/18 08/16/18 Range/Units 18:12 18:12 18:12 WBC 11.0 H (3.8-10.6) k/uL RBC 5.48 (4.30-5.90) m/uL Hgb 16.9 (13.0-17.5) gm/dL Hct 51.7 (39.0-53.0) % MCV 94.3 (80.0-100.0) fL MCH 30.8 (25.0-35.0) pg MCHC 32.6 (31.0-37.0) g/dL RDW 14.1 (11.5-15.5) % Plt Count 180 (150-450) k/uL Neutrophils % 86 % Lymphocytes % 5 % Monocytes % 6 % Eosinophils % 1 % Basophils % 0 % Neutrophils # 9.4 H (1.3-7.7) k/uL Lymphocytes # 0.6 L (1.0-4.8) k/uL Monocytes # 0.7 (0-1.0) k/uL Eosinophils # 0.1 (0-0.7) k/uL Basophils # 0.0 (0-0.2) k/uL PT 10.1 (9.0-12.0) sec INR 1.0 (<1.2) APTT 22.5 (22.0-30.0) sec D-Dimer 2.33 H (<0.60) mg/L FEU Sodium (137-145) mmol/L Potassium (3.5-5.1) mmol/L Chloride (98-107) mmol/L Carbon Dioxide (22-30) mmol/L Anion Gap mmol/L BUN (9-20) mg/dL Creatinine (0.66-1.25) mg/dL Est GFR (CKD-EPI)AfAm (>60 ml/min/1.73 sqM) Est GFR (CKD-EPI)NonAf (>60 ml/min/1.73 sqM) Glucose (74-99) mg/dL Plasma Lactic Acid Corwin (0.7-2.0) mmol/L Calcium (8.4-10.2) mg/dL Phosphorus (2.5-4.5) mg/dL Magnesium (1.6-2.3) mg/dL Total Bilirubin (0.2-1.3) mg/dL AST (17-59) U/L ALT (21-72) U/L Alkaline Phosphatase (38-126) U/L Total Creatine Kinase 64 (55-170) U/L CK-MB (CK-2) 0.7 (0.0-2.4) ng/mL CK-MB (CK-2) Rel Index 1.1 Troponin I <0.012 (0.000-0.034) ng/mL Total Protein (6.3-8.2) g/dL Albumin (3.5-5.0) g/dL 08/16/18 08/16/18 Range/Units 18:12 19:24 WBC (3.8-10.6) k/uL RBC (4.30-5.90) m/uL Hgb (13.0-17.5) gm/dL Hct (39.0-53.0) % MCV (80.0-100.0) fL MCH (25.0-35.0) pg MCHC (31.0-37.0) g/dL RDW (11.5-15.5) % Plt Count (150-450) k/uL Neutrophils % % Lymphocytes % % Monocytes % % Eosinophils % % Basophils % % Neutrophils # (1.3-7.7) k/uL Lymphocytes # (1.0-4.8) k/uL Monocytes # (0-1.0) k/uL Eosinophils # (0-0.7) k/uL Basophils # (0-0.2) k/uL PT (9.0-12.0) sec INR (<1.2) APTT (22.0-30.0) sec D-Dimer (<0.60) mg/L FEU Sodium 141 (137-145) mmol/L Potassium 4.4 (3.5-5.1) mmol/L Chloride 105 (98-107) mmol/L Carbon Dioxide 27 (22-30) mmol/L Anion Gap 9 mmol/L BUN 32 H (9-20) mg/dL Creatinine 1.56 H (0.66-1.25) mg/dL Est GFR (CKD-EPI)AfAm 50 (>60 ml/min/1.73 sqM) Est GFR (CKD-EPI)NonAf 43 (>60 ml/min/1.73 sqM) Glucose 120 H (74-99) mg/dL Plasma Lactic Acid Corwin 1.7 (0.7-2.0) mmol/L Calcium 10.0 (8.4-10.2) mg/dL Phosphorus 3.4 (2.5-4.5) mg/dL Magnesium 2.2 (1.6-2.3) mg/dL Total Bilirubin 0.9 (0.2-1.3) mg/dL AST 21 (17-59) U/L ALT 24 (21-72) U/L Alkaline Phosphatase 110 (38-126) U/L Total Creatine Kinase (55-170) U/L CK-MB (CK-2) (0.0-2.4) ng/mL CK-MB (CK-2) Rel Index Troponin I (0.000-0.034) ng/mL Total Protein 7.3 (6.3-8.2) g/dL Albumin 4.0 (3.5-5.0) g/dL - Radiology Data Radiology results: report reviewed (CT brain C-spine negative), image reviewed Disposition Clinical Impression: Vasovagal syncope, ARF (acute renal failure) Disposition: ADMITTED IP TO THIS HOSP Condition: Fair Is patient prescribed a controlled substance at d/c from ED?: No Referrals: George Renteria MD [Primary Care Provider] - 1-2 days
[2018-08-16 18:50] LABS: Basophils % (A) 0 %; Eosinophils # (A) 0.1 k/uL (0-0.7); Eosinophils % (A) 1 %; HCT 51.7 % (39.0-53.0); HGB 16.9 gm/dL (13.0-17.5); Lymphocytes # (A) 0.6 k/uL (1.0-4.8); Lymphocytes % (A) 5 %; MCH 30.8 pg (25.0-35.0); MCHC 32.6 g/dL (31.0-37.0); MCV 94.3 fL (80.0-100.0); Mean Platelet Volume 9.8; Monocytes # (A) 0.7 k/uL (0-1.0); Monocytes % (A) 6 %; Neutrophils # (A) 9.4 k/uL (1.3-7.7); Neutrophils % (A) 86 %; Platelet Count 180 k/uL (150-450); RBC 5.48 m/uL (4.30-5.90); RDW 14.1 % (11.5-15.5)
[2018-08-16 19:05] LABS: Partial Thromboplastin Time 22.5 sec (22.0-30.0); Prothrombin Time 10.1 sec (9.0-12.0)
--- NOTE | 2018-08-16 19:11 | CT ---
EXAMINATION TYPE: CT brain claudia vilchis DATE OF EXAM: 08/16/2018 COMPARISON: CT brain 08/13/2018 HISTORY: Dizziness with weakness CT DLP: 1327.6 mGycm Automated exposure control for dose reduction was used. TECHNIQUE: CT scan of the head and cervical spine are performed without contrast. FINDINGS: There is cerebral cortical atrophy. There is no mass effect nor midline shift. There is n o sign of intracranial hemorrhage. The calvarium is intact. There is mucosal thickening in the ethmoi d air cells. Cervical vertebra have normal alignment. There is degenerative disc space narrowing throughout the ce rvical spine and more severe at C5-6 C6-7 with spurring of the endplates. Skull base is intact. Facet joints are intact. I see no bony destructive process. IMPRESSION: Spondylotic changes in the lower cervical spine. No fracture seen. Cerebral atrophy. No acute intracranial abnormality. Brain unchanged compared to last exam.
[2018-08-16 19:13] LABS: Creatine Kinase 64 U/L (55-170)
[2018-08-16 19:25] LABS: Creatine Kinase MB 0.7 ng/mL (0.0-2.4); Troponin I <0.012 ng/mL (0.000-0.034)
[2018-08-16 19:33] LABS: D-Dimer 2.33 mg/L FEU (<0.60)
[2018-08-16 19:46] LABS: Magnesium 2.2 mg/dL (1.6-2.3); Phosphorus 3.4 mg/dL (2.5-4.5); Potassium 4.4 mmol/L (3.5-5.1); Total Bilirubin 0.9 mg/dL (0.2-1.3); Total Protein 7.3 g/dL (6.3-8.2)
[2018-08-16] MEDS ORDERED: NITROGLYCERIN SL TABS 0.4 MG TAB SUBLINGUAL PRN (21:26)
--- NOTE | 2018-08-16 23:11 | US ---
EXAMINATION TYPE: US venous doppler duplex LE BI DATE OF EXAM: 08/16/2018 10:44 PM COMPARISON: NONE CLINICAL HISTORY: Pain. Pain SIDE PERFORMED: Bilateral TECHNIQUE: The lower extremity deep venous system is examined utilizing real time linear array sonog kelsey with graded compression, doppler sonography and color-flow sonography. VESSELS IMAGED: External Iliac Vein (EIV) Common Femoral Vein Deep Femoral Vein Greater Saphenous Vein * Femoral Vein Popliteal Vein Small Saphenous Vein * Proximal Calf Veins (* superficial vessels) Right Leg: Negative for DVT Left Leg: Negative for DVT No evidence of DVT bilateral legs. IMPRESSION: Normal bilateral leg duplex venous sonogram.
[2018-08-16 23:57] LABS: Creatine Kinase 40 U/L (55-170)
[2018-08-17 00:10] LABS: Creatine Kinase MB 0.6 ng/mL (0.0-2.4); Troponin I <0.012 ng/mL (0.000-0.034)
[2018-08-17] MEDS ORDERED: METOPROLOL SUCCINATE (ER) 25 MG TAB.ER.24H PO STA (03:43)
[2018-08-17 04:23] VITALS: BMI 29.0
[2018-08-17 07:43] VITALS: RESP 18
[2018-08-17 08:23] LABS: Creatine Kinase 49 U/L (55-170)
[2018-08-17 08:26] LABS: Cholesterol 138 mg/dL (<200); HDL Cholesterol 46 mg/dL (40-60); LDL Cholesterol,Calculated 70 mg/dL (0-99); Triglycerides 112 mg/dL (<150)
[2018-08-17 08:35] LABS: Creatine Kinase MB 0.7 ng/mL (0.0-2.4); Troponin I <0.012 ng/mL (0.000-0.034)
[2018-08-17] MEDS ORDERED: ATORVASTATIN 80 MG TAB PO SCH (09:00)
[2018-08-17] MEDS ORDERED: ASPIRIN 325 MG TAB PO SCH (09:00)
--- NOTE | 2018-08-17 10:27 | NM ---
EXAMINATION TYPE: NM pul vent and perfuse DATE OF EXAM: 08/17/2018 COMPARISON: Chest x-ray from 4 days ago. HISTORY: Bilateral leg swelling, elevated d-dimer. TECHNIQUE: Utilizing inhalation of 38.9 mCi Tc 99m DTPA aerosol and intravenous injection of 5.38 mC i of Tc 99m MAA, ventilation and perfusion images are acquired post injection in multiple projections . FINDINGS: Normal radiotracer distribution is noted in the lungs. There is no evidence of mismatched defects. IMPRESSION: Low probability for pulmonary embolism.
[2018-08-17] MEDS ORDERED: SODIUM CHLORIDE 0.9% 1,000 ML IV SCH (11:00)
[2018-08-17] MEDS ORDERED: amLODIPine 10 MG TAB PO SCH (11:00)
[2018-08-17] MEDS ORDERED: ASPIRIN 81 MG PO SCH (11:00)
[2018-08-17] MEDS ORDERED: LEVOTHYROXINE 88 MCG TAB PO SCH (11:00)
[2018-08-17 11:48] VITALS: TEMP 98.6
[2018-08-17 12:39] VITALS: BP 158/68; PULSE 76
[2018-08-17] MEDS ORDERED: LEVOFLOXACIN 500 MG TAB PO SCH (12:45)
--- NOTE | 2018-08-17 14:07 | P.CRDCN ---
History of Present Illness History of present illness: Mr. Hui is a pleasant 73-year-old male past medical history significant for hypertension, dyslipidemia, TURP in [place] in 2017, gout, BPH and hypothyroidism. He recently moved to the area and hasn't established with a dispatch machine runner yet. He is unsure on some details of his medical history. He states he does think he has seen a dispatch machine runner in [place] but is unclear on if he has coronary artery disease or atrial fibrillation in the past. He is not on intermediate anticoagulation. We have been asked to see him in consultation for syncope. at the bedside is explaining that she witnessed the event and he was up walking in the house and became unsteady on his feet complaining of weakness and dizziness. There was no loss of consciousness or actual syncope. He denies feeling chest pain, shortness of breath, palpitations, nausea, vomiting or diaphoresis. He has intermittent confusion about the course of events. He was admitted here 2 days ago and diagnosed with a urinary tract infection. He typically self caths at home up to 4 times/day without difficulty and was seen at that time by urology as well. He was discharged home on levaquin. EKG on arrival reveals right bundle branch block, left axis deviation and incomplete left fasicular block. Laboratory data reviewed, WBC 11, hgb 16.9, plt 180, d-dimer 2.33, sodium 141, potassium 4.4, creatinine 1.56, cardiac enzymes negative 3, LDL 70 nature 46. Current cardiac medications include pravastatin 20 mg daily, Toprol 25 mg daily , aspirin 81 mg daily, quinipril 40 mg daily and lasix 20 mg BID. Most recent echocardiogram obtained from previous admission 2 days ago reveals preserved left ventricular systolic function ejection fraction 55-60%. At the time of my exam: CONSTITUTIONAL: Denies fever. Denies chills. EYES: Denies blurred vision. Denies vision changes. Denies eye pain. EARS, NOSE, MOUTH & THROAT: Denies headache. Denies sore throat. Denies ear pain. CARDIOVASCULAR: Denies chest pain. Denies shortness of breath. Denies orthopnea. Denies PND. Denies palpitations. RESPIRATORY: Denies cough. GASTROINTESTINAL: Denies abdominal pain. Denies diarrhea. Denies constipation. Denies nausea. Denies vomiting. MUSCULOSKELETAL: Denies myalgias. INTEGUMENTARY: Denies pruitis. Denies rash. NEUROLOGIC: Denies numbness. Denies tingling. Denies weakness. PSYCHIATRIC: Denies anxiety. Denies depression. ENDOCRINE: Denies fatigue. Denies weight change. Denies polydipsia. Denies polyurina. GENITOURINARY: Denies burning, hematuria or urgency with micturation. HEMATOLOGIC: Denies history of anemia. Denies bleeding. Blood pressure 151/71 heart rate 70 afebrile maintaining oxygen saturation on room air GENERAL: This is a 73-year-old male in no apparent distress at the time of my examination. HEENT: Head is atraumatic, normocephalic. Pupils are equal, round. Sclerae anicteric. Conjunctivae are clear. Mucous membranes of the mouth are moist. Neck is supple. There is no jugular venous distention. No carotid bruit is heard. LUNGS: Clear to auscultation no wheezes, rales or rhonchi. No chest wall tenderness is noted on palpation or with deep breathing. HEART: Regular rate and rhythm without murmurs, rubs or gallops. S1 and S2 heard. ABDOMEN: Soft, nontender. Bowel sounds are heard. No organomegaly noted. EXTREMITIES: No evidence of peripheral edema and no calf tenderness noted. VASCULAR: Radial and dorsalis pedis pulses palpated, no evidence of clubbing. NEUROLOGIC: Patient is awake, alert and oriented x3. With episodes of confusion regarding the situation. 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 Add amlodipine 10 mg daily, give dose now. No evidence of an acute arrhythmia on telemetry. No syncope or loss of consciousness per the who witnessed the event. Mostly likely related to acute dehydration and acute kidney injury causing a vasovagal reaction. Continue toprol, pravastatin and aspirin daily. Follow up with Dr. Gan in 2 weeks to establish in the office. Thank you kindly for this consultation. Nurse Practitioner note has been reviewed, I agree with a documented findings and plan of care. Patient was seen and examined. doesn't recall what happened at home only that he has been feeling increasingly dizzy and apparently fell. denies chest pain, sob, palpitations, nausea, vomiting or diaphoresis. Past Medical History Past Medical History: Atrial Fibrillation, Cancer, Heart Failure, Hyperlipidemia , Hypertension, Prostate Disorder, Seizure Disorder, Thyroid Disorder Additional Past Medical History / Comment(s): gout, pt states he believes he has a hx of afib, but not completely sure. He states he was told by his dispatch machine runner in [place] about it, and is not on any medications anticoagulants for it that he knows of. skin ca with removal History of Any Multi-Drug Resistant Organisms: None Reported Past Surgical History: Prostate Surgery Additional Past Surgical History / Comment(s): TURP 2017 in [place] for BPH, hernia repair Past Anesthesia/Blood Transfusion Reactions: No Reported Reaction Past Psychological History: No Psychological Hx Reported Additional Psychological History / Comment(s): lives at home with . Smoking Status: Former smoker Past Alcohol Use History: Occasional Past Drug Use History: None Reported - Past Family History Mother Family Medical History: Cancer Additional Family Medical History / Comment(s): Breast cancer Father Family Medical History: Cancer Medications and Allergies Home Medications Medication Instructions Recorded Confirmed Type Allopurinol [Zyloprim] 100 mg PO DAILY 08/13/18 08/16/18 History Aspirin [Adult Low Dose Aspirin EC] 81 mg PO DAILY 08/13/18 08/16/18 History Calcium Carbonate [Calcium] 600 mg PO DAILY 08/13/18 08/16/18 History Levothyroxine Sodium [Synthroid] 88 mcg PO DAILY 08/13/18 08/16/18 History Metoprolol Succinate [Toprol XL] 25 mg PO HS 08/13/18 08/16/18 History Pravastatin Sodium [Pravachol] 20 mg PO HS 08/13/18 08/16/18 History Levofloxacin [Levaquin] 500 mg PO DAILY #10 tab 08/15/18 08/16/18 Rx Tamsulosin [Flomax] 0.4 mg PO PC-SUPPER #30 cap.er.24h 08/17/18 08/16/18 Rx hydrALAZINE HCL 25 mg PO AC-BID #60 tablet 08/17/18 Rx Allergies Allergy/AdvReac Type Severity Reaction Status Date / Time No Known Allergies Allergy Verified 08/16/18 17:04 Physical Exam Vitals: Vital Signs Temp Pulse Pulse Resp BP BP Pulse Ox 08/17/18 07:41 98.3 F 70 18 188/77 94 L 08/17/18 04:00 98.1 F 78 16 144/86 96 08/17/18 03:37 97.8 F 59 L 17 150/106 95 08/17/18 01:19 98.1 F 62 17 167/86 95 08/16/18 22:59 97.3 F L 66 18 123/89 95 08/16/18 21:31 93 18 172/97 95 08/16/18 19:11 91 18 140/68 94 L 08/16/18 16:54 98.1 F 75 18 132/69 95 Intake and Output 08/16/18 08/17/18 08/17/18 22:59 06:59 14:59 Output Total 600 450 Balance -600 -450 Output: Urine 600 450 Uretheral (Mueller) 600 Other: Voiding Method Indwelling Catheter Weight 99.79 kg 99.79 kg Results 08/16/18 18:12 08/16/18 19:24 Cardiac Enzymes 08/16/18 08/16/18 08/16/18 Range/Units 18:12 18:12 18:12 WBC 11.0 H (3.8-10.6) k/uL RBC 5.48 (4.30-5.90) m/uL Hgb 16.9 (13.0-17.5) gm/dL Hct 51.7 (39.0-53.0) % MCV 94.3 (80.0-100.0) fL MCH 30.8 (25.0-35.0) pg MCHC 32.6 (31.0-37.0) g/dL RDW 14.1 (11.5-15.5) % Plt Count 180 (150-450) k/uL Neutrophils % 86 % Lymphocytes % 5 % Monocytes % 6 % Eosinophils % 1 % Basophils % 0 % Neutrophils # 9.4 H (1.3-7.7) k/uL Lymphocytes # 0.6 L (1.0-4.8) k/uL Monocytes # 0.7 (0-1.0) k/uL Eosinophils # 0.1 (0-0.7) k/uL Basophils # 0.0 (0-0.2) k/uL PT 10.1 (9.0-12.0) sec INR 1.0 (<1.2) APTT 22.5 (22.0-30.0) sec D-Dimer 2.33 H (<0.60) mg/L FEU Sodium (137-145) mmol/L Potassium (3.5-5.1) mmol/L Chloride (98-107) mmol/L Carbon Dioxide (22-30) mmol/L Anion Gap mmol/L BUN (9-20) mg/dL Creatinine (0.66-1.25) mg/dL Est GFR (CKD-EPI)AfAm (>60 ml/min/1.73 sqM) Est GFR (CKD-EPI)NonAf (>60 ml/min/1.73 sqM) Glucose (74-99) mg/dL Plasma Lactic Acid Corwin (0.7-2.0) mmol/L Calcium (8.4-10.2) mg/dL Phosphorus (2.5-4.5) mg/dL Magnesium (1.6-2.3) mg/dL Total Bilirubin (0.2-1.3) mg/dL AST (17-59) U/L ALT (21-72) U/L Alkaline Phosphatase (38-126) U/L Total Creatine Kinase 64 (55-170) U/L CK-MB (CK-2) 0.7 (0.0-2.4) ng/mL CK-MB (CK-2) Rel Index 1.1 Troponin I <0.012 (0.000-0.034) ng/mL Total Protein (6.3-8.2) g/dL Albumin (3.5-5.0) g/dL 08/16/18 08/16/18 08/16/18 Range/Units 18:12 19:24 23:22 WBC (3.8-10.6) k/uL RBC (4.30-5.90) m/uL Hgb (13.0-17.5) gm/dL Hct (39.0-53.0) % MCV (80.0-100.0) fL MCH (25.0-35.0) pg MCHC (31.0-37.0) g/dL RDW (11.5-15.5) % Plt Count (150-450) k/uL Neutrophils % % Lymphocytes % % Monocytes % % Eosinophils % % Basophils % % Neutrophils # (1.3-7.7) k/uL Lymphocytes # (1.0-4.8) k/uL Monocytes # (0-1.0) k/uL Eosinophils # (0-0.7) k/uL Basophils # (0-0.2) k/uL PT (9.0-12.0) sec INR (<1.2) APTT (22.0-30.0) sec D-Dimer (<0.60) mg/L FEU Sodium 141 (137-145) mmol/L Potassium 4.4 (3.5-5.1) mmol/L Chloride 105 (98-107) mmol/L Carbon Dioxide 27 (22-30) mmol/L Anion Gap 9 mmol/L BUN 32 H (9-20) mg/dL Creatinine 1.56 H (0.66-1.25) mg/dL Est GFR (CKD-EPI)AfAm 50 (>60 ml/min/1.73 sqM) Est GFR (CKD-EPI)NonAf 43 (>60 ml/min/1.73 sqM) Glucose 120 H (74-99) mg/dL Plasma Lactic Acid Corwin 1.7 (0.7-2.0) mmol/L Calcium 10.0 (8.4-10.2) mg/dL Phosphorus 3.4 (2.5-4.5) mg/dL Magnesium 2.2 (1.6-2.3) mg/dL Total Bilirubin 0.9 (0.2-1.3) mg/dL AST 21 (17-59) U/L ALT 24 (21-72) U/L Alkaline Phosphatase 110 (38-126) U/L Total Creatine Kinase 40 L (55-170) U/L CK-MB (CK-2) 0.6 (0.0-2.4) ng/mL CK-MB (CK-2) Rel Index 1.5 Troponin I <0.012 (0.000-0.034) ng/mL Total Protein 7.3 (6.3-8.2) g/dL Albumin 4.0 (3.5-5.0) g/dL Coagulation 08/16/18 Range/Units 18:12 PT 10.1 (9.0-12.0) sec APTT 22.5 (22.0-30.0) sec CBC 08/16/18 Range/Units 18:12 WBC 11.0 H (3.8-10.6) k/uL RBC 5.48 (4.30-5.90) m/uL Hgb 16.9 (13.0-17.5) gm/dL Hct 51.7 (39.0-53.0) % Plt Count 180 (150-450) k/uL Comprehensive Metabolic Panel 08/16/18 Range/Units 19:24 Sodium 141 (137-145) mmol/L Potassium 4.4 (3.5-5.1) mmol/L Chloride 105 (98-107) mmol/L Carbon Dioxide 27 (22-30) mmol/L BUN 32 H (9-20) mg/dL Creatinine 1.56 H (0.66-1.25) mg/dL Glucose 120 H (74-99) mg/dL Calcium 10.0 (8.4-10.2) mg/dL AST 21 (17-59) U/L ALT 24 (21-72) U/L Alkaline Phosphatase 110 (38-126) U/L Total Protein 7.3 (6.3-8.2) g/dL Albumin 4.0 (3.5-5.0) g/dL Current Medications Generic Name Dose Route Start Last Admin Trade Name Freq PRN Reason Stop Dose Admin Aspirin 325 mg 08/17/18 09:00 Aspirin PO DAILY [facility] Atorvastatin Calcium 80 mg 08/17/18 09:00 Lipitor PO DAILY [facility] Nitroglycerin 0.4 mg 08/16/18 21:26 Nitrostat SUBLINGUAL Q5M PRN Chest Pain Intake and Output 08/16/18 08/17/18 08/17/18 22:59 06:59 14:59 Output Total 600 450 Balance -600 -450 Output: Urine 600 450 Uretheral (Mueller) 600 Other: Voiding Method Indwelling Catheter Weight 99.79 kg 99.79 kg 08/16/18 18:12 08/16/18 19:24
--- NOTE | 2018-08-17 14:32 | P.HPIM ---
History of Present Illness H&P Date: 08/17/18 (This document is of both his H&P and discharge summary) Chief Complaint: Syncope 73 years old male clinic patient of mine with past medical history of hypertension, hyperlipidemia, and TURP in [place] in 2017, gout, atrial fibrillation not on anticoagulation and BPH with urinary retention who was just admitted 2 days ago for dehydration , acute kidney injury, UTIs and increased weakness. Patient was discharged after being treated for acute kidney injury. He was doing well until the afternoon after he took all his medication and the 5 cm patient is having headache and nausea, he had an episode of vomiting followed by fall from dizziness. According to the patient's who witnessed the event, he did not pass out. He denies any chest pain or shortness of breath or palpitation nausea or vomiting right now. He does have intermittent confusion. Amlodipine was initiated during the last visit but patient complains of significant headache from the medication. Orthostatics were obtained which were negative. Patient received IV fluids overnight at 75 mL per hour. D-dimer was elevated to 2.33 followed by a VQ scan which was negative for pulmonary embolism bilaterally. There were obtained which were negative for DVT. LDL 70 creatinine 1.56 above his baseline. Vitals are stable with a temperature of 98.6 pounds 89, blood pressure 159/81. Due to patient's side effects will hold amlodipine with also hold Lasix and quinapril for acute kidney injury. Hydralazine was added for blood pressure control 25 mg twice a day patient will be followed in the clinic on Tuesday for recheck on his blood pressure. Home care will be provided to assess blood pressure when patient's condition while at home. The patient does have some gait instability and tremor at rest will be evaluated by neurology as outpatient to rule out Parkinson syndrome Review of Systems Constitutional: Denies chills, Denies fever, endorses malaise, Denies poor appetite, Denies weakness, Denies weight loss Eyes: denies decreased vision, denies diplopia, denies discharge, denies pain Ears: deny: decreased hearing Ears, nose, mouth and throat: Denies dental pain, Denies headache, Denies nasal discharge, Denies nose pain Cardiovascular: Denies chest pain, Denies decreased exercise tolerance, Denies edema, Denies high blood pressure, Denies irregular heart beat, Denies palpitations, Denies paroxysmal nocturnal dyspnea, Denies rapid heart beat, Denies shortness of breath Respiratory: Denies congestion, Denies cough, Denies cough with sputum, Denies dyspnea, Denies home oxygen, Denies wheezing Gastrointestinal: Denies abdominal pain, Denies change in bowel habits, Denies coffee ground emesis, Denies early satiety, Denies excessive gas, Denies heartburn, Denies hematemesis, Denies hematochezia, Denies loss of appetite, Denies nausea, Denies vomiting Genitourinary: Denies dysuria, Denies flank pain, Denies kidney stones, Denies urgency, Denies urinary frequency endorses urinary retention straight caths 4 times a day Musculoskeletal: Denies gait dysfunction, Denies limitation of motion, Denies morning stiffness, Denies muscle cramps Integumentary: Denies rash, Denies wounds, Denies brittle nails, Denies change in hair/nails, Denies darkening of skin Neurological: Denies balance difficulties, Denies change in speech, Denies double vision, Denies gait dysfunction, Denies loss of vision, Denies motor disturbance, Denies numbness, Denies paralysis, Denies paresthesias, Denies seizures Psychiatric: Denies anxiety, Denies depression Endocrine: Denies excessive sweating, Denies excessive thirst, Denies high blood sugars, Denies palpitations Hematologic/Lymphatic: Denies easy bruising, Denies lymphadenopathy Past Medical History Past Medical History: Atrial Fibrillation, Cancer, Heart Failure, Hyperlipidemia , Hypertension, Prostate Disorder, Seizure Disorder, Thyroid Disorder Additional Past Medical History / Comment(s): gout, pt states he believes he has a hx of afib, but not completely sure. He states he was told by his security representative in [place] about it, and is not on any medications anticoagulants for it that he knows of. skin ca with removal History of Any Multi-Drug Resistant Organisms: None Reported Past Surgical History: Prostate Surgery Additional Past Surgical History / Comment(s): TURP 2017 in [place] for BPH, hernia repair Past Anesthesia/Blood Transfusion Reactions: No Reported Reaction Past Psychological History: No Psychological Hx Reported Additional Psychological History / Comment(s): lives at home with . Smoking Status: Former smoker Past Alcohol Use History: Occasional Past Drug Use History: None Reported - Past Family History Mother Family Medical History: Cancer Additional Family Medical History / Comment(s): Breast cancer Father Family Medical History: Cancer Medications and Allergies Home Medications Medication Instructions Recorded Confirmed Type Allopurinol [Zyloprim] 100 mg PO DAILY 08/13/18 08/16/18 History Aspirin [Adult Low Dose Aspirin EC] 81 mg PO DAILY 08/13/18 08/16/18 History Calcium Carbonate [Calcium] 600 mg PO DAILY 08/13/18 08/16/18 History Levothyroxine Sodium [Synthroid] 88 mcg PO DAILY 08/13/18 08/16/18 History Metoprolol Succinate [Toprol XL] 25 mg PO HS 08/13/18 08/16/18 History Pravastatin Sodium [Pravachol] 20 mg PO HS 08/13/18 08/16/18 History Levofloxacin [Levaquin] 500 mg PO DAILY #10 tab 08/15/18 08/16/18 Rx Tamsulosin [Flomax] 0.4 mg PO PC-SUPPER #30 cap.er.24h 08/17/18 08/16/18 Rx hydrALAZINE HCL 25 mg PO AC-BID #60 tablet 08/17/18 Rx Allergies Allergy/AdvReac Type Severity Reaction Status Date / Time No Known Allergies Allergy Verified 08/16/18 17:04 Physical Exam Vitals: Vital Signs Temp Pulse Pulse Pulse Pulse Pulse Resp 08/17/18 12:36 89 79 76 18 08/17/18 11:47 98.6 F 73 18 08/17/18 07:41 98.3 F 70 18 08/17/18 04:00 98.1 F 78 16 08/17/18 03:37 97.8 F 59 L 17 08/17/18 01:19 98.1 F 62 17 08/16/18 22:59 97.3 F L 66 18 08/16/18 21:31 93 18 08/16/18 19:11 91 18 08/16/18 16:54 98.1 F 75 18 BP BP BP BP BP Pulse Ox 08/17/18 12:36 159/81 158/68 158/68 08/17/18 11:47 151/71 94 L 08/17/18 07:41 188/77 94 L 08/17/18 04:00 144/86 96 08/17/18 03:37 150/106 95 08/17/18 01:19 167/86 95 08/16/18 22:59 123/89 95 08/16/18 21:31 172/97 95 08/16/18 19:11 140/68 94 L 08/16/18 16:54 132/69 95 Intake and Output 08/16/18 08/17/18 08/17/18 22:59 06:59 14:59 Output Total 600 450 550 Balance -600 -450 -550 Output: Urine 600 450 550 Uretheral (Mueller) 600 550 Other: Voiding Method Indwelling Catheter Indwelling Catheter Weight 99.79 kg 99.79 kg - Constitutional General appearance: cooperative, no acute distress, - EENT Eyes: anicteric sclerae, PERRLA, normal appearance ENT: hearing grossly normal - Neck Neck: no lymphadenopathy, normal ROM, no other, no rigidity, no stridor, no thyromegaly - Respiratory Respiratory: bilateral: CTA, negative: diminished, dullness, rales, rhonchi - Cardiovascular Rhythm: regular Heart sounds: normal: S1, S2 Abnormal Heart Sounds: no systolic murmur, no diastolic murmur, no rub, no S3 Gallop, no S4 Gallop, no click, no other - Gastrointestinal General gastrointestinal: normal bowel sounds, soft - Integumentary Integumentary: no rash - Neurologic Neurologic: CNII-XII intact - Musculoskeletal Musculoskeletal: Shuffling gait, strength equal bilaterally - Psychiatric Psychiatric: A&O x's 3, appropriate affect, delayed response and answer questions Results CBC & Chem 7: 08/16/18 18:12 08/16/18 19:24 Labs: Abnormal Lab Results - Last 24 Hours (Table) 08/16/18 08/16/18 08/16/18 Range/Units 18:12 18:12 19:24 WBC 11.0 H (3.8-10.6) k/uL Neutrophils # 9.4 H (1.3-7.7) k/uL Lymphocytes # 0.6 L (1.0-4.8) k/uL D-Dimer 2.33 H (<0.60) mg/L FEU BUN 32 H (9-20) mg/dL Creatinine 1.56 H (0.66-1.25) mg/dL Glucose 120 H (74-99) mg/dL Total Creatine Kinase (55-170) U/L 08/16/18 08/17/18 Range/Units 23:22 07:18 WBC (3.8-10.6) k/uL Neutrophils # (1.3-7.7) k/uL Lymphocytes # (1.0-4.8) k/uL D-Dimer (<0.60) mg/L FEU BUN (9-20) mg/dL Creatinine (0.66-1.25) mg/dL Glucose (74-99) mg/dL Total Creatine Kinase 40 L 49 L (55-170) U/L Thrombosis Risk Factor Assmnt - DVT/VTE Prophylaxis DVT/VTE Prophylaxis: Pharmacologic Prophylaxis ordered - Choose All That Apply Each Factor Represents 1 point: Obesity (BMI >25) Each Risk Factor Represents 3 Points: Age 75 years or older Thrombosis Risk Factor Assessment Total Risk Factor Score: 4 Thrombosis Risk Factor Assessment Level: Moderate Risk Assessment and Plan Plan: 1 acute dizziness with weakness secondary to dehydration from diuretics. Will hold diuretic. Encourage oral intake avoid nephrotoxic agent. Patient was evaluated by physical therapy the last visit and was sent home on [place] as he did not qualify for inpatient rehab or subacute rehab #2 acute kidney injury likely secondary to ATN or nephrotoxic agents like quinapril and Lasix. Creatinine 1.56 will be repeated patient on Tuesday. #3 hypertension we will hold Lasix and quinapril. Patient had headaches from amlodipine. Hydralazine added to 25 mg twice a day. Follow up in the clinic on Tuesday for further assessment of blood pressure #4 BPH with urinary retention developed to the urology last visit. We will continue to maintain a log for post void. Continue straight cath 4 times a day #5 urinary tract infection likely secondary to catheter continue levofloxacin for 10 days #6 DVT prophylaxis with heparin #7 CODE STATUS full code #8 gait instability with tremor will rule out Parkinson disease with follow-up with neurology as outpatient.
[2018-08-17] MEDS ORDERED: TAMSULOSIN 0.4 MG CAP.ER.24H PO SCH (18:30)
[2018-08-17] MEDS ORDERED: PRAVASTATIN SODIUM 20 MG TAB PO SCH (21:00)
[2018-08-17] MEDS ORDERED: METOPROLOL SUCCINATE (ER) 25 MG TAB.ER.24H PO SCH (21:00)
[2018-08-18] MEDS ORDERED: CALCIUM CARBONATE 500 MG CHEWABLE PO SCH (09:00)
[2018-08-18] MEDS ORDERED: ALLOPURINOL 100 MG TAB PO SCH (09:00)
[2018-08-18] MEDS ORDERED: LEVOFLOXACIN 250 MG TAB PO SCH (13:00)
== END 2018-08-17 15:45 | disposition home health service (06) ==
LOC: EC 16:41 → 1SOBS 21:26
PROVIDERS: ADMIT Internal Medicine; ATTEND Internal Medicine
DX: E86.0 Dehydration (principal); T50.2X5A Adverse effect of carbonic-anhydrase inhibitors, benzothiadiazides and other diuretics, initial encounter; N17.0 Acute kidney failure with tubular necrosis; N14.1 Nephropathy induced by other drugs, medicaments and biological substances; T46.4X5A Adverse effect of angiotensin-converting-enzyme inhibitors, initial encounter; T50.1X5A Adverse effect of loop [high-ceiling] diuretics, initial encounter; I11.0 Hypertensive heart disease with heart failure; I50.9 Heart failure, unspecified; N40.1 Benign prostatic hyperplasia with lower urinary tract symptoms; R33.8 Other retention of urine; N39.0 Urinary tract infection, site not specified; R26.9 Unspecified abnormalities of gait and mobility; R25.1 Tremor, unspecified; R79.89 Other specified abnormal findings of blood chemistry; E78.5 Hyperlipidemia, unspecified; E03.9 Hypothyroidism, unspecified; M10.9 Gout, unspecified; I45.3 Trifascicular block; G40.909 Epilepsy, unspecified, not intractable, without status epilepticus; I48.91 Unspecified atrial fibrillation; Z79.890 Hormone replacement therapy; Z79.82 Long term (current) use of aspirin; Z79.899 Other long term (current) drug therapy; Z80.8 Family history of malignant neoplasm of other organs or systems; Z80.3 Family history of malignant neoplasm of breast; Z87.891 Personal history of nicotine dependence; Z85.828 Personal history of other malignant neoplasm of skin; E66.9 Obesity, unspecified; Z68.29 Body mass index [BMI] 29.0-29.9, adult
CPT/HCPCS: 96361 ×2; 96360; 99285; 36415; 93005; 85379; 80061; 80053; 82550 ×2; 82553 ×2; 83605; 83735; 84100; 84484 ×2; 85025; 85610; 85730; 93970; 72125; 70450; 78582; G0378 ×2; A9540; A9567

== ENCOUNTER → 2018-09-18 | Outpatient (CLI) | payer MEDICARE ==
--- NOTE | 2018-09-18 08:12 | US ---
EXAMINATION TYPE: US abdomen limited DATE OF EXAM: 09/18/2018 COMPARISON: NONE CLINICAL HISTORY: Abn level alkaline phosphate R74.8. Elevated alkaline phosphate EXAM MEASUREMENTS: Liver Length: 14.7 cm Gallbladder Wall: 0.2 cm CBD: 0.4 cm Right Kidney: 11.9 x 4.7 x 4.4 cm Pancreas: Obscured by bowel gas Liver: Heterogenous with a coarsened hepatic echotexture and slight prominence of the portal triads. Gallbladder: no evidence of stones Evidence for sonographic Joy's sign: no CBD: limited evaluation, appears wnl Right Kidney: no evidence of hydronephrosis IMPRESSION: 1. No sonographic evidence of cholelithiasis or acute cholecystitis. 2. Heterogenous coarsened hepatic echotexture that can be seen in hepatitis or other hepatocellular d isease. 3. Obscured view of the pancreas.
== END | disposition home or self-care (01) ==
LOC: RADUSWWP 07:29
PROVIDERS: ATTEND Internal Medicine
DX: R93.2 Abnormal findings on diagnostic imaging of liver and biliary tract (principal)
CPT/HCPCS: 76705

== ENCOUNTER → 2018-10-17 | Outpatient (CLI) | payer MEDICARE ==
[2018-10-17 15:30] LABS: HCT 48.3 % (39.0-53.0); MCH 29.8 pg (25.0-35.0); MCHC 31.1 g/dL (31.0-37.0); MCV 95.7 fL (80.0-100.0); Platelet Count 167 k/uL (150-450); RBC 5.04 m/uL (4.30-5.90); WBC 5.1 k/uL (3.8-10.6)
[2018-10-17 16:13] LABS: Potassium 4.7 mmol/L (3.5-5.1)
== END | disposition home or self-care (01) ==
LOC: LABWHC1 14:45
PROVIDERS: ATTEND Internal Medicine Interventional Cardiology
DX: Z01.812 Encounter for preprocedural laboratory examination (principal); R94.39 Abnormal result of other cardiovascular function study; I10 Essential (primary) hypertension; E78.2 Mixed hyperlipidemia
CPT/HCPCS: 36415; 80051; 82565; 84520; 85027

== ENCOUNTER → 2018-10-26 | Day surgery (SDC) | payer MEDICARE ==
[2018-10-23 12:03] VITALS: BMI 30.3
[~2018-10-26] MED LIST: ALLOPURINOL 100 MG TAB PO SCH; ALPRAZolam 0.25 MG TAB PO PRN; ALPRAZolam 0.5 MG TAB PO PRN; ASPIRIN 325 MG TAB PO ONE; ASPIRIN 81 MG PO SCH; ATORVASTATIN 80 MG TAB PO ONE; CALCIUM CARB-VIT D 500MG-200UN 1 EACH TAB PO SCH; HEPARIN SODIUM 1,000 UN/ML (10ML VL) IV ONE; HEPARIN SODIUM 1,000 UN/ML (10ML VL) ONE; IOPAMIDOL-370 100ML BTL INJ ONE; LEVOTHYROXINE 88 MCG TAB PO SCH; LIDOCAINE 1% INJ 10MG/ML (20 ML MDV) ONE; LIDOCAINE 1% INJ 10MG/ML (20 ML MDV) SQ ONE; MIDAZOLAM 2 MG/2 ML VIAL IVP ONE; NITROGLYCERIN SL TABS 0.4 MG TAB SUBLINGUAL PRN; PRAVASTATIN SODIUM 20 MG TAB PO SCH; RX INFO: IV CONTRAST WAS GIVEN 1 EACH MISC MISCELLANE PRN; SODIUM CHLORIDE 0.9% 1,000 ML IV SCH; SODIUM CHLORIDE 0.9% 1,000 ML in EMPTY BAG 1 BAG IV ONE; TAMSULOSIN 0.4 MG CAP.ER.24H PO SCH; VERAPAMIL 2.5 MG/ML 2 ML AMP ONE; amLODIPine 5 MG TAB ONE; amLODIPine 5 MG TAB PO STA; fentaNYL (PF) 50 MCG/ML 2 ML AMP IV ONE; fentaNYL (PF) 50 MCG/ML 2 ML AMP ONE; hydrALAZINE HCL 25 MG TAB PO SCH
[2018-10-26 08:14] VITALS: RESP 18; TEMP 98.3
[2018-10-26] MEDS: VERAPAMIL SYRINGE (5 MG/10 ML) INTRAARTER ONE ×2 (09:38→09:45)
--- NOTE | 2018-10-26 10:27 | CC ---
CARDIAC CATHETERIZATION REPORT Mr. Hui is a 73-year-old male with known history of hypertension, hyperlipidemia, who has been complaining of dyspnea. He has underwent myocardial perfusion imaging that revealed evidence of intra-apical lateral wall reversible defect. In view of that, recommendation made regarding cardiac catheterization. The procedure, risks and complications were discussed with the patient who is in full understanding and agreement. PROCEDURE: Patient was brought to the microbiology lab technician in a fasting semi-sedated state after receiving fentanyl and Benadryl and achieving moderate conscious sedated state. Using Xylocaine anesthesia and Seldinger technique, a 6-Beninese sheath was introduced in the right radial artery. Selective right and left coronary angiography was performed using 5- Beninese 3.5 bend right and left Nafisa catheter. Multiple views of the coronary artery including hemiaxial views obtained. Following that left ventricular end-diastolic pressure was measured using the right Nafisa catheter. Following that, catheter and sheaths were removed. Hemostasis was obtained with deployment of a TR band. There was no immediate complication patient is returned to his room in stable condition. Of note, patient received 5000 units of intravenous heparin as well as intra-arterial verapamil. FINDINGS: LEFT MAIN: This is a large-sized vessel, bifurcating into left circumflex, left anterior descending artery. Left main coronary artery has no evidence of high-grade stenosis. LEFT ANTERIOR DESCENDING ARTERY: This is a large-sized vessel, giving rise to a large proximal diagonal branch. The left anterior descending artery tapers down in distal third. The LAD and its branches have no evidence of obstructive coronary artery disease. LEFT CIRCUMFLEX: This is a nondominant vessel, giving rise to 2 large obtuse marginal branches. The first one is very proximal. The left circumflex as well as branches have no evidence of obstructive coronary artery disease. RIGHT CORONARY ARTERY: This is a large dominant vessel bifurcating distally to PDA and posterolateral segment branches. The right coronary artery as well as branches have no evidence of obstructive coronary artery disease. The PDA reaches toward the inferoapical wall. LEFT VENTRICULOGRAM: Left ventriculogram was not performed. HEMODYNAMICS: There was no gradient across the aortic valve. The left ventricular end-diastolic pressure is 16-18 minutes mmHg. CONCLUSION: 1. Normal coronary arteries. 2. Normal left ventricular end-diastolic pressure. RECOMMENDATION: In view of finding anatomy, I recommend continue medical therapy with aggressive risk modifications being initiated. Those findings and recommendation were discussed with the patient and his family who are in full understanding and agreement. Duration of procedure is 20 minutes. MMODL / IJN: [id number] /
--- NOTE | 2018-10-26 10:30 | LTR ---
DATE OF SERVICE: 10/26/2018 RE: Rafael Hui Dear Dr. Renteria; I had the pleasure to perform cardiac catheterization on Mr. Hui at [facility] on October 26, 2018 and a full copy of the procedure note will be forwarded to you. In brief, he was found to have no evidence of obstructive coronary artery disease and based on those findings, I will continue medical therapy with the aggressive risk modifications that you have initiated and thank you again for allowing me to participate in this patient's care. Please feel free to call for any questions. Sincerely yours, MD HEATHER Gannon / SONIYAN: [id number] /
[2018-10-26 14:01] VITALS: BP 142/71; PULSE 55
== END | disposition home or self-care (01) ==
LOC: CATHCVL 07:48
PROVIDERS: ATTEND Internal Medicine Interventional Cardiology
DX: R94.39 Abnormal result of other cardiovascular function study (principal); I44.1 Atrioventricular block, second degree; I10 Essential (primary) hypertension; E78.2 Mixed hyperlipidemia; R60.9 Edema, unspecified; Z79.82 Long term (current) use of aspirin; Z79.890 Hormone replacement therapy; Z79.899 Other long term (current) drug therapy; Z72.0 Tobacco use
CPT/HCPCS: 93458; C1769 ×2; C1894; J2250; J2001; J3010; J1644; Q9967

== ENCOUNTER → 2018-11-18 | Outpatient (CLI) | payer MEDICARE ==
--- NOTE | 2018-11-18 11:42 | MR ---
EXAMINATION TYPE: MR iac wo/w con DATE OF EXAM: 11/18/2018 COMPARISON: CT brain August 16, 2018 HISTORY: Dizziness, off balance TECHNIQUE: Multiplanar, multisequence images of the brain and brainstem is performed without and with IV contras t, utilizing 10 mL intravenous Gadavist . Acoustic nerve disorder protocol. FINDINGS: Diffusion weighted images demonstrate no evidence of a recent infarct or other diffusion ab normality. There is no worrisome extra-axial fluid collection. There is diffuse ventricular and sulc al prominence consistent with diffuse cerebral atrophy. There are focal and confluent areas of T2 hyp erintensity seen about the superficial and deep white matter most prominent at periventricular levels . Lesions are nonspecific in appearance and distribution but most likely on basis of product of chron ic small vessel ischemic change in patient of this age. Midline structures demonstrate normal morphology. The craniocervical junction appears within normal limits. Normal vascular flow voids are present. A few small mucous retention cysts and/or polyps in t he posterior right ethmoid, inferior right lateral maxillary, and anterior left sphenoid sinus are al l redemonstrated. Globes are intact bilaterally. There is no suspicious opacification of mastoid air cells bilaterally. Vestibulocochlear complexes ar e symmetric and felt within normal limits. There is no suspicious enhancing cerebellopontine angle ma ss identified bilaterally. IMPRESSION: 1. No suspicious fluid signal or enhancing mass present to account for patient's symptoms of dizzines s and balance loss. 2. There is mild to moderate diffuse cerebral atrophy and moderate to advanced chronic small vessel i schemic change noted.
== END ==
LOC: RADMRIMAIN 09:52
PROVIDERS: ATTEND Otolaryngology
DX: H81.93 Unspecified disorder of vestibular function, bilateral (principal); G31.9 Degenerative disease of nervous system, unspecified; I67.82 Cerebral ischemia
CPT/HCPCS: 82565; 70553; 36415; A9585

== ENCOUNTER → 2019-10-22 | Outpatient (CLI) | payer MEDICARE ==
--- NOTE | 2019-10-22 16:06 | US ---
EXAMINATION TYPE: US kidneys/renal and bladder DATE OF EXAM: 10/22/2019 COMPARISON: NONE CLINICAL HISTORY: N18.9 Chronic kidney disease. EXAM MEASUREMENTS: Right Kidney: 11.7 x 4.5 x 4.1 cm Left Kidney: 10.5 x 4.8 x 4.4 cm Right Kidney: No hydronephrosis or masses seen Left Kidney: No hydronephrosis. Two cystic areas visualized, largest lower pole measuring 2.0 x 1.9 x 1.6 cm. Lower pole shadowing echogenic foci measuring 0.9 cm Bladder: Diverticulum visualized with trabeculated wall. Bilateral Jets seen: No There is no evidence for hydronephrosis at this point in time. The urinary bladder is anechoic. IMPRESSION: 1. Benign-appearing left renal cysts. 2. Nonobstructing 9 mm left renal calculus. 3. Trabeculated appearance to the urinary bladder wall with multiple diverticula. Correlate for neuro genic bladder or urinary bladder outlet obstruction.
== END | disposition home or self-care (01) ==
LOC: RADUSWWP 15:01
PROVIDERS: ATTEND Internal Medicine Geriatric Medicine
DX: N20.0 Calculus of kidney (principal); N28.1 Cyst of kidney, acquired; N32.3 Diverticulum of bladder; N18.9 Chronic kidney disease, unspecified
CPT/HCPCS: 76770

== ENCOUNTER → 2020-02-19 | Outpatient (CLI) | payer MEDICARE ==
--- NOTE | 2020-02-19 10:31 | XR ---
EXAMINATION TYPE: XR KUB DATE OF EXAM: 02/19/2020 10:02 AM CLINICAL HISTORY: Nephrolithiasis TECHNIQUE: Single supine KUB image of the abdomen is obtained. COMPARISON: Ultrasound dated 10/22/2019. FINDINGS: 7 mm calculus overlies the left renal shadow. No other suspicious radiopaque calculi overly ing the renal shadows or course of the ureters. Phleboliths seen within the pelvis as well as mild at herosclerosis. No dilated bowel. Lung bases are well aerated. Mild to moderate degenerative changes o f the lumbosacral junction and femoral acetabular joints. IMPRESSION: 7 mm calculus overlying the left renal shadow.
== END | disposition home or self-care (01) ==
LOC: RADXRMAIN 09:16
PROVIDERS: ATTEND Urology
DX: N20.0 Calculus of kidney (principal)
CPT/HCPCS: 74018

== ENCOUNTER → 2020-02-20 | Outpatient (CLI) | payer MEDICARE ==
--- NOTE | 2020-02-20 11:45 | XR ---
EXAMINATION TYPE: XR lumbar spine 2 or 3V DATE OF EXAM: 02/20/2020 CLINICAL HISTORY: Lower back pain worse when walking. Left sided renal stone. TECHNIQUE: Frontal and lateral images of the lumbar spine are obtained. COMPARISON: Abdominal x-ray from one day earlier. FINDINGS: There are 5 lumbar type vertebral bodies identified. Slight dextroconvex scoliotic curvatu re centered at L2-L3 level. Fairly satisfactory alignment on lateral images. Pacg-sb-ynaggbdi multile manju disc space narrowing is present. Vertebral body heights fairly well maintained. Moderate anterior and lateral spurring in the upper to mid lumbar spine. Facet arthropathy lower lumbar levels. Vascul ar calcification overlying the abdominal aorta. Roughly 10 mm mid to lower pole left renal calculus r edemonstrated seen better on this study. IMPRESSION: As above
== END | disposition home or self-care (01) ==
LOC: RADXRMAIN 11:21
PROVIDERS: ATTEND Internal Medicine Geriatric Medicine
DX: M99.73 Connective tissue and disc stenosis of intervertebral foramina of lumbar region (principal); M46.96 Unspecified inflammatory spondylopathy, lumbar region; M41.86 Other forms of scoliosis, lumbar region
CPT/HCPCS: 72100

== ENCOUNTER → 2020-02-25 | Outpatient (CLI) | payer MEDICARE ==
[2020-02-25 11:18] LABS: Basophils # (A) 0.1 k/uL (0-0.2); Basophils % (A) 1 %; Eosinophils # (A) 0.3 k/uL (0-0.7); Eosinophils % (A) 4 %; HCT 43.5 % (39.0-53.0); HGB 14.2 gm/dL (13.0-17.5); Lymphocytes # (A) 0.8 k/uL (1.0-4.8); Lymphocytes % (A) 10 %; MCH 33.3 pg (25.0-35.0); MCHC 32.8 g/dL (31.0-37.0); MCV 101.7 fL (80.0-100.0); Macrocytosis Slight; Mean Platelet Volume 9.8; Monocytes # (A) 0.6 k/uL (0-1.0); Monocytes % (A) 8 %; Neutrophils # (A) 6.5 k/uL (1.3-7.7); Neutrophils % (A) 77 %; Platelet Count 191 k/uL (150-450); RBC 4.27 m/uL (4.30-5.90); RDW 13.1 % (11.5-15.5); WBC 8.5 k/uL (3.8-10.6)
[2020-02-25 11:21] LABS: Appearance,Urine Clear (Clear); Bacteria,Urine Rare /hpf; Bilirubin,Urine Negative (Negative); Blood,Urine Negative (Negative); Color,Urine Yellow; Glucose,Urine (UA) Negative (Negative); Hyaline Casts,Urine 1 /lpf (0-2); Ketones,Urine Negative (Negative); Leukocyte Esterase,Urine Large (Negative); Mucus,Urine Rare /hpf; Nitrite,Urine Negative (Negative); Protein,Urine Negative (Negative); RBC,Urine 1 /hpf (0-5); Specific Gravity,Urine 1.017 (1.001-1.035); Urobilinogen,Urine <2.0 mg/dL (<2.0); WBC,Urine 24 /hpf (0-5)
== END | disposition home or self-care (01) ==
LOC: LABPAT 10:17
PROVIDERS: ATTEND Urology
DX: Z01.818 Encounter for other preprocedural examination (principal); N20.0 Calculus of kidney; R35.0 Frequency of micturition
CPT/HCPCS: 36415; 80051; 81001; 82565; 84520; 85025

== ENCOUNTER 2020-03-03 08:45 | Day surgery (SDC) | payer MEDICARE ==
[2020-02-29 10:12] VITALS: BMI 29.0
--- NOTE | 2020-03-02 19:14 | P.GSHP ---
History of Present Illness H&P Date: 03/02/20 75 yo male with kidney stone disease. He passed a stone if October He has a symptomatic 7 mm left renal stone. He was given management options. He has chosen ESWL left He comes for this procedure. The risks complications and alternatives have been discussed. - Constitutional Constitutional: Denies chills, Denies fever - EENT Eyes: denies blurred vision, denies pain Ears, nose, mouth and throat: Denies headache, Denies sore throat - Cardiovascular Cardiovascular: Denies chest pain, Denies shortness of breath - Respiratory Respiratory: Denies cough, Denies 7 - Gastrointestinal Gastrointestinal: Denies abdominal pain, Denies diarrhea, Denies nausea, Denies vomiting - Genitourinary (Female) Genitourinary: Denies dysuria, Denies hematuria - Genitourinary (Male) Genitourinary: Denies dysuria, Denies hematuria - Musculoskeletal Musculoskeletal: Denies myalgias - Integumentary Integumentary: Denies pruritus, Denies rash - Neurological Neurological: Denies numbness, Denies weakness - Psychiatric Psychiatric: Denies anxiety, Denies depression - Endocrine Endocrine: Denies fatigue, Denies weight change Past Medical History Past Medical History: Atrial Fibrillation, Cancer, Heart Failure, Hyperlipidemia, Hypertension, Prostate Disorder, Renal Disease, Thyroid Disorder Additional Past Medical History / Comment(s): Hx gout, hx of afib - but not completely sure, told by his unitizer in [place] about it, not on any Rx anticoagulants for it that he knows of. skin ca with removal. Current kidney stone. BPH. History of Any Multi-Drug Resistant Organisms: None Reported Past Surgical History: Heart Catheterization, Hernia Repair, Prostate Surgery Additional Past Surgical History / Comment(s): TURP 2017 in [place] for BPH, hernia repair Past Anesthesia/Blood Transfusion Reactions: No Reported Reaction Smoking Status: Former smoker - Past Family History Mother Family Medical History: Cancer Additional Family Medical History / Comment(s): Breast cancer Father Family Medical History: Cancer Sister(s) Family Medical History: Cancer Medications and Allergies Home Medications Medication Instructions Recorded Confirmed Type Allopurinol [Zyloprim] 100 mg PO HS 08/13/18 02/29/20 History Aspirin [Adult Low Dose Aspirin EC] 81 mg PO HS 08/13/18 02/29/20 History Calcium Carbonate [Calcium] 600 mg PO DAILY 08/13/18 02/29/20 History Levothyroxine Sodium [Synthroid] 88 mcg PO DAILY 08/13/18 02/29/20 History Pravastatin Sodium [Pravachol] 20 mg PO HS 08/13/18 02/29/20 History Tamsulosin [Flomax] 0.4 mg PO DAILY 02/29/20 02/29/20 History Triamterene-Hctz 37.5-25Mg 1 cap PO DAILY 02/29/20 02/29/20 History [Dyazide 37.5-25 Capsule] amLODIPine/VALSARTAN [Exforge 1 tab PO DAILY 02/29/20 02/29/20 History 5-160 MG] hydrALAZINE HCL 100 mg PO HS 02/29/20 02/29/20 History Allergies Allergy/AdvReac Type Severity Reaction Status Date / Time No Known Allergies Allergy Verified 02/29/20 09:40 Surgical - Exam - General well developed, well nourished, obese - Eyes PERRL - ENT no hearing loss - Neck no masses - Respiratory normal expansion, normal respiratory effort - Cardiovascular Rhythm: regular - Abdomen Abdomen: soft, non tender Hernia: inguinal - Genitourinary normal penis with no external lesions, testicles present - Integumentary no rash, no growths - Neurologic normal coordination, normal sensation - Musculoskeletal normal gait, normal posture - Psychiatric oriented to time, oriented to person, oriented to place, speech is normal, memory intact Results - Imaging Abdominal x-ray: report reviewed, image reviewed US - abdomen: report reviewed, image reviewed Assessment and Plan Assessment: Impression: Left renal stone, 7 mm mid pole Plan: ESWL left
[~2020-03-03 08:45] MED LIST changes: -ALLOPURINOL 100 MG TAB PO SCH; -ALPRAZolam 0.25 MG TAB PO PRN; -ALPRAZolam 0.5 MG TAB PO PRN; -ASPIRIN 325 MG TAB PO ONE; -ASPIRIN 81 MG PO SCH; -ATORVASTATIN 80 MG TAB PO ONE; -CALCIUM CARB-VIT D 500MG-200UN 1 EACH TAB PO SCH; -HEPARIN SODIUM 1,000 UN/ML (10ML VL) IV ONE; -HEPARIN SODIUM 1,000 UN/ML (10ML VL) ONE; -IOPAMIDOL-370 100ML BTL INJ ONE; +LACTATED RINGERS 1,000 ML IV SCH; -LEVOTHYROXINE 88 MCG TAB PO SCH; +LIDOCAINE 1% (10MG/ML) FOR IV START INTRADERMA PRN; -LIDOCAINE 1% INJ 10MG/ML (20 ML MDV) ONE; -LIDOCAINE 1% INJ 10MG/ML (20 ML MDV) SQ ONE; -MIDAZOLAM 2 MG/2 ML VIAL IVP ONE; -NITROGLYCERIN SL TABS 0.4 MG TAB SUBLINGUAL PRN; -PRAVASTATIN SODIUM 20 MG TAB PO SCH; +Pre Op ABX Message 1 EACH MISC MISCELLANE ONE; -RX INFO: IV CONTRAST WAS GIVEN 1 EACH MISC MISCELLANE PRN; -SODIUM CHLORIDE 0.9% 1,000 ML IV SCH; -SODIUM CHLORIDE 0.9% 1,000 ML in EMPTY BAG 1 BAG IV ONE; -TAMSULOSIN 0.4 MG CAP.ER.24H PO SCH; -VERAPAMIL 2.5 MG/ML 2 ML AMP ONE; -amLODIPine 5 MG TAB ONE; -amLODIPine 5 MG TAB PO STA; -fentaNYL (PF) 50 MCG/ML 2 ML AMP IV ONE; -fentaNYL (PF) 50 MCG/ML 2 ML AMP ONE; -hydrALAZINE HCL 25 MG TAB PO SCH
[2020-03-03 09:17] VITALS: RESP 16; TEMP 98
--- NOTE | 2020-03-03 09:29 | XR ---
EXAMINATION TYPE: XR KUB DATE OF EXAM: 03/03/2020 Comparison: External 2019 Clinical History: 75-year-old male Lt Renal Calculus, pre-op Findings: Nonobstructive bowel gas pattern. Mild stool burden. 9 mm left renal calculus. Vascular calcification s in the pelvis. Impression: Redemonstrated 9 mm left renal calculus. Vascular calcifications in the pelvis.
[2020-03-03] MEDS ORDERED: PROPOFOL 10 MG/ML 20 ML VIAL IV ONE (10:01)
[2020-03-03] MEDS ORDERED: MIDAZOLAM 2 MG/2 ML VIAL ONE (10:01)
[2020-03-03] MEDS ORDERED: LIDOCAINE 1% INJ 10MG/ML (20 ML MDV) ONE (10:01)
[2020-03-03] MEDS ORDERED: fentaNYL (PF) 50 MCG/ML 2 ML AMP ONE (10:01)
--- NOTE | 2020-03-03 10:26 | P.OP ---
Date of Procedure: 03/03/20 Preoperative Diagnosis: Left renal stone Postoperative Diagnosis: Same Procedure(s) Performed: Extracorporeal shockwave lithotripsy left 1500 shocks at energy level IV Anesthesia: MAC Surgeon: Rafael Monsalve Estimated Blood Loss (ml): 0 Pathology: none sent Condition: stable Disposition: PACU Indications for Procedure: Patient is 75. He has a 7 mm left midpole pole stone causing pain he comes for shockwave lithotripsy Description of Procedure: The patient is brought to the operating suite. He's placed on the operating table in a supine position. He is given IV sedation. The stone was seen in 2 views of fluoroscopy. At a rate of 80 and energy level is already in the for the stone was broken into small pieces. A total of 1500 shocks are administered. The patient tolerated procedure well awake and returned recovery room good condition. He'll be discharged home upon recovery.
[2020-03-03 11:05] VITALS: BP 146/76; PULSE 56
== END 2020-03-03 11:52 | disposition home or self-care (01) ==
LOC: ORWHC2ENDO 08:45
PROVIDERS: ATTEND Urology
DX: N20.0 Calculus of kidney (principal); I48.91 Unspecified atrial fibrillation; I11.0 Hypertensive heart disease with heart failure; I50.9 Heart failure, unspecified; E78.5 Hyperlipidemia, unspecified; E07.9 Disorder of thyroid, unspecified; N40.0 Benign prostatic hyperplasia without lower urinary tract symptoms; M10.9 Gout, unspecified; Z79.82 Long term (current) use of aspirin; Z79.890 Hormone replacement therapy; Z79.899 Other long term (current) drug therapy; Z85.828 Personal history of other malignant neoplasm of skin; Z98.890 Other specified postprocedural states; Z80.3 Family history of malignant neoplasm of breast; Z80.9 Family history of malignant neoplasm, unspecified
CPT/HCPCS: 74018; 50590; J2250; J2001; J3010; J2704

== ENCOUNTER → 2020-04-08 | Outpatient (CLI) | payer MEDICARE ==
--- NOTE | 2020-04-08 08:16 | XR ---
EXAMINATION TYPE: XR KUB DATE OF EXAM: 04/08/2020 Comparison: 03/10/2020 Clinical History: 75-year-old male N20.0 stones Findings: Vascular calcifications. Calcifications projecting at the left upper quadrant suggestive of underlyin g calcified granulomas. 7 mm and 5 mm calcifications projecting at the left mid abdomen. Degenerative changes lower lumbar sp ine. No obstructive bowel gas pattern. No significant stool burden. Impression: Suspect 7 mm and 5 mm nonobstructive left renal calculi. These 2 calcifications were seen on the juhi ent's prior 03/10/2020 exam as well. Vascular calcifications in the pelvis.
== END | disposition home or self-care (01) ==
LOC: RADXRMAIN 07:37
PROVIDERS: ATTEND Urology
DX: N20.0 Calculus of kidney (principal)
CPT/HCPCS: 74018

== ENCOUNTER → 2020-11-07 | Outpatient (CLI) | payer MEDICARE ==
--- NOTE | 2020-11-07 12:08 | XR ---
EXAMINATION TYPE: XR knee complete RT DATE OF EXAM: 11/07/2020 COMPARISON: None HISTORY: Pain TECHNIQUE: Three-view right knee FINDINGS: No acute fractures or dislocations are evident. Mild diffuse joint space narrowing is prese nt. No joint effusion is evident. IMPRESSION: 1. Minimal degenerative joint changes. 2. No acute or subacute osseous abnormality radiographically apparent
== END | disposition home or self-care (01) ==
LOC: RADXRMAIN 11:31
PROVIDERS: ATTEND Nurse Practitioner Family
DX: M17.11 Unilateral primary osteoarthritis, right knee (principal)

== ENCOUNTER → 2021-03-26 | Outpatient (CLI) | payer MEDICARE ==
[2021-03-26 14:40] LABS: Basophils # (A) 0.06 X 10*3/uL (0.00-0.10); Basophils % (A) 0.8 %; Eosinophils # (A) 0.35 X 10*3/uL (0.04-0.35); Eosinophils % (A) 4.7 %; HCT 50.6 % (39.6-50.0); HGB 15.5 g/dL (13.0-17.0); Lymphocytes # (A) 1.03 X 10*3/uL (0.90-5.00); Lymphocytes % (A) 13.9 %; MCH 30.8 pg (27.0-32.0); MCHC 30.6 g/dL (32.0-37.0); MCV 100.4 fL (80.0-97.0); Mean Platelet Volume 11.9 fL (9.5-12.2); Monocytes # (A) 0.54 X 10*3/uL (0.20-1.00); Monocytes % (A) 7.3 %; Neutrophils # (A) 5.34 X 10*3/uL (1.80-7.70); Neutrophils % (A) 72.4 %; Platelet Count 165 X 10*3/uL (140-440); RBC 5.04 X 10*6/uL (4.40-5.60); RDW 13.7 % (11.5-14.5); WBC 7.39 X 10*3/uL (4.50-10.00)
[2021-03-26 15:30] LABS: African American GFR (CKD) 55.4 (60.0-200.0); Albumin 4.1 g/dL (3.80-4.90); Albumin/Globulin Ratio 1.71 (1.60-3.17); BUN/Creat Ratio 27.14 Ratio (12.00-20.00); Calcium 8.9 mg/dL (8.7-10.3); Globulin 2.4 g/dL (1.6-3.3); Non-African American GFR(CKD) 47.8 (60.0-200.0); Potassium 4.6 mmol/L (3.5-5.5); Total Bilirubin 0.6 mg/dL (0.2-1.2); Total Protein 6.5 g/dL (6.2-8.2)
[2021-03-26 15:36] LABS: T4, Free (Free Thyroxine) 1.5 ng/dL (0.80-1.80)
== END | disposition home or self-care (01) ==
LOC: LABWHC1 09:02
PROVIDERS: ATTEND Internal Medicine Geriatric Medicine
DX: E03.9 Hypothyroidism, unspecified (principal); E78.2 Mixed hyperlipidemia; N18.9 Chronic kidney disease, unspecified
CPT/HCPCS: 36415; 80053; 84439; 84443; 85025

== ENCOUNTER → 2021-03-27 | Outpatient (CLI) | payer MEDICARE ==
[2021-03-27 15:48] LABS: Basophils # (A) 0.04 X 10*3/uL (0.00-0.10); Basophils % (A) 0.5 %; Eosinophils % (A) 4.1 %; HCT 45.7 % (39.6-50.0); HGB 14.8 g/dL (13.0-17.0); Lymphocytes # (A) 0.99 X 10*3/uL (0.90-5.00); Lymphocytes % (A) 13.6 %; MCH 31.6 pg (27.0-32.0); MCHC 32.4 g/dL (32.0-37.0); MCV 97.4 fL (80.0-97.0); Mean Platelet Volume 12.6 fL (9.5-12.2); Monocytes # (A) 0.66 X 10*3/uL (0.20-1.00); Neutrophils # (A) 5.22 X 10*3/uL (1.80-7.70); Neutrophils % (A) 71.6 %; Platelet Count 165 X 10*3/uL (140-440); RBC 4.69 X 10*6/uL (4.40-5.60); RDW 13.8 % (11.5-14.5)
[2021-03-27 18:51] LABS: African American GFR (CKD) 55.4 (60.0-200.0); Albumin/Globulin Ratio 1.67 (1.60-3.17); Anion Gap 8.4 mmol/L (4.00-12.00); BUN/Creat Ratio 26.43 Ratio (12.00-20.00); Calcium 8.8 mg/dL (8.7-10.3); Carbon Dioxide 20.6 mmol/L (21.6-31.8); Chol/HDL Ratio 3.04; Globulin 2.4 g/dL (1.6-3.3); LDL Cholesterol,Calculated 69.2 mg/dL (0.0-131.0); Non-African American GFR(CKD) 47.8 (60.0-200.0); Potassium 4.5 mmol/L (3.5-5.5); Total Bilirubin 0.7 mg/dL (0.3-1.2); Total Protein 6.4 g/dL (6.2-8.2); VLDL Calculation 24.8 mg/dL (5.00-40.00)
== END | disposition home or self-care (01) ==
LOC: LABWHC1 08:27
PROVIDERS: ATTEND Internal Medicine Geriatric Medicine
DX: E03.9 Hypothyroidism, unspecified (principal); E78.2 Mixed hyperlipidemia; N18.9 Chronic kidney disease, unspecified
CPT/HCPCS: 36415; 80053; 80061; 84436; 84443; 85025

== ENCOUNTER → 2021-06-25 | Outpatient (CLI) | payer MEDICARE ==
[2021-06-25 11:41] LABS: Basophils # (A) 0.07 X 10*3/uL (0.00-0.10); Eosinophils # (A) 0.36 X 10*3/uL (0.04-0.35); HCT 48.3 % (39.6-50.0); HGB 15.7 g/dL (13.0-17.0); Lymphocytes # (A) 1.09 X 10*3/uL (0.90-5.00); Lymphocytes % (A) 15.2 %; MCH 31.8 pg (27.0-32.0); MCHC 32.5 g/dL (32.0-37.0); MCV 97.8 fL (80.0-97.0); Mean Platelet Volume 12.8 fL (9.5-12.2); Monocytes # (A) 0.74 X 10*3/uL (0.20-1.00); Monocytes % (A) 10.3 %; Neutrophils # (A) 4.82 X 10*3/uL (1.80-7.70); Neutrophils % (A) 67.2 %; Platelet Count 147 X 10*3/uL (140-440); RBC 4.94 X 10*6/uL (4.40-5.60); RDW 14.2 % (11.5-14.5); WBC 7.17 X 10*3/uL (4.50-10.00)
[2021-06-25 19:35] LABS: Chol/HDL Ratio 3.01 Ratio; HDL Cholesterol 52.9 mg/dL (40.00-60.00); LDL Cholesterol,Calculated 85.3 mg/dL (0.0-131.0); T4, Free (Free Thyroxine) 1.6 ng/dL (0.800-1.800); VLDL Calculation 20.8 mg/dL (5.00-40.00)
[2021-06-26 00:56] LABS: Albumin 4.1 g/dL (3.8-4.9); Albumin/Globulin Ratio 1.49 (1.60-3.17); Anion Gap 18.5 mmol/L (4.00-12.00); BUN/Creat Ratio 25.97 Ratio (12.00-20.00); Blood Urea Nitrogen 45.7 mg/dL (9.0-27.0); Calcium 9.6 mg/dL (8.7-10.3); Carbon Dioxide 15.3 mmol/L (21.6-31.8); Globulin 2.8 g/dL (1.6-3.3); Non-African American GFR(CKD) 36.2 (60.0-200.0); Potassium 5.5 mmol/L (3.5-5.5); Total Bilirubin 0.5 mg/dL (0.30-1.20); Total Protein 6.9 g/dL (6.2-8.2)
== END | disposition home or self-care (01) ==
LOC: LABWHC1 07:20
PROVIDERS: ATTEND Internal Medicine Geriatric Medicine
DX: Z00.00 Encounter for general adult medical examination without abnormal findings (principal); E03.9 Hypothyroidism, unspecified; E78.2 Mixed hyperlipidemia; R73.9 Hyperglycemia, unspecified
CPT/HCPCS: 36415; 80053; 80061; 83036; 84439; 84443; 85025

== ENCOUNTER → 2021-09-18 | Outpatient (CLI) | payer MEDICARE ==
[2021-09-18 14:44] LABS: Basophils # (A) 0.06 X 10*3/uL (0.00-0.10); Basophils % (A) 0.7 %; Eosinophils # (A) 0.29 X 10*3/uL (0.04-0.35); Eosinophils % (A) 3.6 %; HCT 48.7 % (39.6-50.0); HGB 14.9 g/dL (13.0-17.0); Lymphocytes # (A) 1.03 X 10*3/uL (0.90-5.00); Lymphocytes % (A) 12.9 %; MCH 30.5 pg (27.0-32.0); MCHC 30.6 g/dL (32.0-37.0); MCV 99.8 fL (80.0-97.0); Monocytes # (A) 0.81 X 10*3/uL (0.20-1.00); Monocytes % (A) 10.1 %; Neutrophils # (A) 5.72 X 10*3/uL (1.80-7.70); Neutrophils % (A) 71.5 %; Platelet Count 168 X 10*3/uL (140-440); RBC 4.88 X 10*6/uL (4.40-5.60); RDW 13.6 % (11.5-14.5); WBC 8.01 X 10*3/uL (4.50-10.00)
[2021-09-18 16:31] LABS: ALT 16 U/L (10-49); AST 18 U/L (14-35); African American GFR (CKD) 39.8 (60.0-200.0); Albumin 4.1 g/dL (3.8-4.9); Albumin/Globulin Ratio 1.65 (1.60-3.17); Alkaline Phosphatase 98 U/L (41-126); BUN/Creat Ratio 23.91 Ratio (12.00-20.00); Calcium 9.1 mg/dL (8.7-10.3); Carbon Dioxide 18.6 mmol/L (20.0-27.5); Chloride 103 mmol/L (96-109); Chol/HDL Ratio 3.15 Ratio; Globulin 2.5 g/dL (1.6-3.3); Glucose 102 mg/dL (70-110); LDL Cholesterol,Calculated 76.2 mg/dL (0.0-131.0); Non-African American GFR(CKD) 34.3 (60.0-200.0); Potassium 4.6 mmol/L (3.5-5.5); Sodium 137 mmol/L (135-145); Total Protein 6.6 g/dL (6.2-8.2)
== END | disposition home or self-care (01) ==
LOC: LABWHC1 08:27
PROVIDERS: ATTEND Internal Medicine Geriatric Medicine
DX: Z00.00 Encounter for general adult medical examination without abnormal findings (principal); E78.2 Mixed hyperlipidemia; E03.9 Hypothyroidism, unspecified; R73.9 Hyperglycemia, unspecified
CPT/HCPCS: 36415; 80053; 80061; 83036; 84439; 84443; 85025

== ENCOUNTER → 2022-03-25 | Outpatient (CLI) | payer MEDICARE ==
--- NOTE | 2022-03-25 07:35 | XR ---
EXAMINATION TYPE: XR thoracic spine 2V DATE OF EXAM: 03/25/2022 CLINICAL HISTORY: pain TECHNIQUE: Frontal, lateral, and swimmer's view of thoracic spine are obtained. COMPARISON: None. FINDINGS: Thoracic spine show satisfactory alignment without evidence of acute fracture or dislocatio n. Vertebral body heights are preserved. Moderate multilevel degenerative disc space narrowing and s pondylosis. Visualized ribs are unremarkable. IMPRESSION: No acute fracture or dislocation is seen in the thoracic spine. ICD 10 NO FRACTURE, INITIAL EVALUATION
--- NOTE | 2022-03-25 07:36 | XR ---
EXAMINATION TYPE: XR lumbar spine 2 or 3V DATE OF EXAM: 03/25/2022 CLINICAL HISTORY: pain TECHNIQUE: Three views of the lumbar spine are submitted. COMPARISON: None. FINDINGS: There are 5 lumbar type vertebral bodies identified. The lumbar spine shows satisfactory alignment w ithout evidence of acute fracture or dislocation. Vertebral body heights are within normal limits. Moderate multilevel degenerative disc space narrowing and spondylosis. Moderate facet joint arthropat hy. The overlying soft tissue appears unremarkable. IMPRESSION: No acute fracture or dislocation is seen in the lumbar spine. ICD 10 NO FRACTURE, INITIAL EVALUATION
[2022-03-25 16:18] LABS: Basophils # (A) 0.07 X 10*3/uL (0.00-0.10); Basophils % (A) 0.8 %; Eosinophils # (A) 0.29 X 10*3/uL (0.04-0.35); Eosinophils % (A) 3.4 %; HCT 46.8 % (39.6-50.0); Immature Grans, Automated 1.6 %; Lymphocytes # (A) 0.91 X 10*3/uL (0.90-5.00); Lymphocytes % (A) 10.6 %; MCH 31.4 pg (27.0-32.0); MCHC 32.1 g/dL (32.0-37.0); MCV 98.1 fL (80.0-97.0); Mean Platelet Volume 12.7 fL (9.5-12.2); Monocytes # (A) 0.78 X 10*3/uL (0.20-1.00); Monocytes % (A) 9.1 %; NRBC Per 100 WBC 0 /100 WBCS (0.0-0.0); Neutrophils # (A) 6.39 X 10*3/uL (1.80-7.70); Neutrophils % (A) 74.5 %; Platelet Count 164 X 10*3/uL (140-440); RBC 4.77 X 10*6/uL (4.40-5.60); RDW 14.1 % (11.5-14.5); WBC 8.58 X 10*3/uL (4.50-10.00)
[2022-03-25 17:13] LABS: ALT 22 U/L (10-49); AST 18 U/L (14-35); African American GFR (CKD) 40.6 (60.0-200.0); Albumin 4.3 g/dL (3.8-4.9); Albumin/Globulin Ratio 1.72 (1.60-3.17); Alkaline Phosphatase 95 U/L (41-126); Blood Urea Nitrogen 50.4 mg/dL (9.0-27.0); Calcium 9.5 mg/dL (8.7-10.3); Carbon Dioxide 19.7 mmol/L (20.0-27.5); Chloride 109 mmol/L (96-109); Chol/HDL Ratio 3.16 Ratio; Globulin 2.5 g/dL (1.6-3.3); Glucose 107 mg/dL (70-110); LDL Cholesterol,Calculated 76.6 mg/dL (0.0-131.0); Potassium 4.8 mmol/L (3.5-5.5); Sodium 142 mmol/L (135-145); Total Protein 6.8 g/dL (6.2-8.2)
== END | disposition home or self-care (01) ==
LOC: RADXRMAIN 06:41
PROVIDERS: ATTEND Internal Medicine Geriatric Medicine
DX: I48.0 Paroxysmal atrial fibrillation (principal); E78.2 Mixed hyperlipidemia; E03.9 Hypothyroidism, unspecified
CPT/HCPCS: 72070; 72100; 80053; 80061; 84439; 84443; 85025

== ENCOUNTER 2025-01-21 19:23 | Inpatient (IN) | payer MEDICARE ==
[2025-01-21 20:18] LABS: Basophils # (A) 0.03 10*3/uL (0.00-0.10); Basophils % (A) 0.3 %; Eosinophils # (A) 0.02 10*3/uL (0.04-0.35); Eosinophils % (A) 0.2 %; HCT 43.9 % (39.6-50.0); Lymphocytes # (A) 0.48 10*3/uL (0.90-5.00); Lymphocytes % (A) 5.2 %; MCH 33.7 pg (27.0-32.0); MCHC 34.2 g/dL (32.0-37.0); MCV 98.7 fL (80.0-97.0); Mean Platelet Volume 11.7 fL (9.5-12.2); Monocytes % (A) 5.4 %; Neutrophils # (A) 8.06 10*3/uL (1.80-7.70); Neutrophils % (A) 87.9 %; Platelet Count 164 10*3/uL (140-440); RBC 4.45 10*6/uL (4.40-5.60); RDW 13.6 % (11.5-14.5); WBC 9.18 10*3/uL (4.50-10.00)
--- NOTE | 2025-01-21 20:21 | ED ---
Altered Mental Status HPI - General Chief Complaint: Altered Mental Status Stated Complaint: Altered Mental, Possible UTI Time Seen by Provider: 01/21/25 20:20 Source: patient, family (), RN notes reviewed, old records reviewed Mode of arrival: EMS Limitations: altered mental status - History of Present Illness Initial Comments: 79-year-old male presented to the ER via EMS for evaluation of altered mental status. is providing majority of HPI and past medical history. She states they typically attend exercise classes which patient does enjoy but today he did not want to attend as he "did not feel like it". She states this is abnormal fo r him. reports she recently had home health care visit established, first visit was today. Throughout the day patient reported he was hungry and made him soup. When the soup was complete she called for him to come to the kitchen to eat but could not find him. She went to the bathroom and noticed he was standing over the toilet neither vomiting or urinating. She states he was standing there for approximately 30 minutes. She states he was "just standing over the toilet". She was concerned given his altered mental status and the possibility of UTI for which she called EMS as his urine has been foul-smelling recently. She does state in the past patient has had to self catheterize himself but is currently incontinent of urine. She also states he has chronic diarrhea. She denies any fevers, chills, cough, congestion. Patient denies any chest discomfort or shortness of breath. Patient denies any current back, flank, abdominal pain. - Related Data Home Medications Medication Instructions Recorded Confirmed Aspirin [Adult Low Dose Aspirin EC] 81 mg PO HS 08/13/18 01/21/25 Levothyroxine Sodium [Synthroid] 88 mcg PO AC-BRKFST 08/13/18 01/21/25 Pravastatin Sodium [Pravachol] 20 mg PO HS 08/13/18 01/21/25 allopurinoL [Zyloprim] 100 mg PO PC-BRKFST 08/13/18 01/21/25 Amlodipine Besylate/Valsartan 1 tab PO PC-BRKFST 02/29/20 01/21/25 [Exforge 5-160 MG] Tamsulosin [Flomax] 0.8 mg PO PC-BRKFST 02/29/20 01/21/25 Furosemide [Lasix] 20 mg PO PC-BRKFST 01/21/25 01/21/25 hydrALAZINE HCL [Apresoline] 50 mg PO BID-W/MEALS 01/21/25 01/21/25 Allergies Allergy/AdvReac Type Severity Reaction Status Date / Time No Known Allergies Allergy Verified 01/21/25 20:45 Review of Systems ROS Statement: Those systems with pertinent positive or pertinent negative responses have been documented in the HPI. ROS Other: All systems not noted in ROS Statement are negative. Past Medical History Past Medical History: Atrial Fibrillation, Cancer, Heart Failure, Hyperlipidemia, Hypertension, Prostate Disorder, Seizure Disorder, Thyroid Disorder Additional Past Medical History / Comment(s): gout, pt states he believes he has a hx of afib, but not completely sure. He states he was told by his juice weigher in [place] about it, and is not on any medications anticoagulants for it that he knows of. skin ca with removal History of Any Multi-Drug Resistant Organisms: None Reported Past Surgical History: Prostate Surgery Additional Past Surgical History / Comment(s): TURP 2017 in [place] for BPH, hernia repair Past Anesthesia/Blood Transfusion Reactions: No Reported Reaction Past Psychological History: No Psychological Hx Reported Smoking Status: Unknown if ever smoked Past Alcohol Use History: Occasional Past Drug Use History: None Reported - Past Family History Mother Family Medical History: Cancer Additional Family Medical History / Comment(s): Breast cancer Father Family Medical History: Cancer Sister(s) Family Medical History: Cancer General Exam Limitations: no limitations General appearance: alert, in no apparent distress Eye exam: Present: normal appearance, PERRL, EOMI. Absent: scleral icterus, conjunctival injection, periorbital swelling Respiratory exam: Present: normal lung sounds bilaterally. Absent: respiratory distress, wheezes, rales, rhonchi, stridor Cardiovascular Exam: Present: regular rate, normal rhythm, normal heart sounds. Absent: systolic murmur, diastolic murmur, rubs, gallop, clicks GI/Abdominal exam: Present: soft, normal bowel sounds. Absent: distended, tenderness, guarding, rebound, rigid Extremities exam: Present: full ROM, pedal edema (1+ pretibial bilaterally) Neurological exam: Present: alert, altered (AxO x2) Skin exam: Present: warm, dry, intact, normal color. Absent: rash Course Vital Signs 01/21/25 01/21/25 19:26 22:33 Temperature 97.5 F L Pulse Rate 66 Respiratory 18 18 Rate Blood Pressure 156/62 148/67 O2 Sat by Pulse 98 Oximetry - Reevaluation(s) Reevaluation #1: 01/22/25 00:17 Case discussed with [facility] by my attending Dr. Hubbard for admission. Medical Decision Making - Medical Decision Making Was pt. sent in by a medical professional or institution (, PA, BIOLOGICAL AIDE, urgent care, hospital, or senior care...) When possible be specific @ -No Did you speak to anyone other than the patient for history (EMS, parent, family, police, friend...)? What history was obtained from this source @ -HPI provided by Did you review nursing and triage notes (agree or disagree)? Why? @ -I reviewed and agree with nursing and triage notes Were old charts reviewed (outside hosp., previous admission, EMS record, old EKG, old radiological studies, urgent care reports/EKG's, senior care records)? Report findings @ -No old charts were reviewed Differential Diagnosis (chest pain, altered mental status, abdominal pain women, abdominal pain men, vaginal bleeding, weakness, fever, dyspnea, syncope, headache, dizziness, GI bleed, back pain, seizure, CVA, palpatations, mental health, musculoskeletal)? @ -Differential Altered Mental Status:Hypoglycemia, DKA, hypercapnia, ETOH, overdose, CO poisoning, trauma, myxedema coma, HTN encephalopathy, infection, encephalitis, psychosis, intercranial hemorrhage, hepatic encephalopathy, meningitis, CVA, this is not meant to be an all-inclusive list EKG interpreted by me (3pts min.). @ -As above X-rays interpreted by me (1pt min.). @ -CXR interpreted by me negative for focal consolidations, pneumothorax or pleural effusions. Cardiomegaly. CT interpreted by me (1pt min.). @ -CT brain showed no acute intracranial process. Chronic periventricular white matter ischemic changes with atrophy progressive from 2018. U/S interpreted by me (1pt. min.). @ -None done What testing was considered but not performed or refused? (CT, X-rays, U/S, labs)? Why? @ -None What meds were considered but not given or refused? Why? @ -None Did you discuss the management of the patient with other professionals (professionals i.e. DrKellie, PA, BIOLOGICAL AIDE, lab, RT, psych nurse, social sciences professor, vmware consultant, teacher, special officer automat, immigration case manager)? Give summary @ -Case discussed with EM by my attending, Dr. Hubbard. Was smoking cessation discussed for >3mins.? @ -No Was critical care preformed (if so, how long)? @ -No Were there social determinants of health that impacted care today? How? (Homelessness, low income, unemployed, alcoholism, drug addiction, transportation, low edu. Level, literacy, decrease access to med. care, [facility], rehab)? @ -No Was there de-escalation of care discussed even if they declined (Discuss DNR or withdrawal of care, Hospice)? DNR status @ -No What co-morbidities impacted this encounter? (DM, HTN, Smoking, COPD, CAD, Cancer, CVA, ARF, Chemo, Hep., AIDS, mental health diagnosis, sleep apnea, morbid obesity)? @ -Advanced age, atrial fibrillation, history of heart failure, hypertension, hyperlipidemia Was patient admitted / discharged? Hospital course, mention meds given and route, prescriptions, significant lab abnormalities, going to OR and other pertinent info. @ -Admitted. 80-year-old male presented the ER via EMS for evaluation of altered mental status. Upon arrival, vitals within acceptable limits. Patient ANO x 2. Workup in the ER remarkable for a UTI with 134 WBCs, large leukocyte esterases and occasional bacteria this will be sent for culture. Stage III CKD with a GFR of 45, BUN 45, creatinine 1.44 this appears to be patient's baseline. WBC 9.18, lactate 1.4. Viral swabs negative. Imaging completed in the ER ne gative for acute process. IV fluid bolus held given patient's history of heart failure. Given patient's age and UTI admission was offered to for IV antibiotic treatment, she states she would prefer admission given patient is more confused than normal. Case discussed and accepted by [facility] by my attending, Dr. Marks. Patient started on IV Rocephin, blood cultures obtained. Maintenance fluids 50 cc/h given heart failure history. Upon reevaluation, patient resting comfortably in exam room no signs of acute distress. Results discussed with who is in agreements with plan. Patient admitted in stable condition. Case discussed with ED attending, Dr. Hubbard. Undiagnosed new problem with uncertain prognosis? @ -No Drug Therapy requiring intensive monitoring for toxicity (Heparin, Nitro, Insulin, Cardizem)? @ -No Were any procedures done? @ -No Diagnosis/symptom? @ -UTI Acute, or Chronic, or Acute on Chronic? @ -Acute Uncomplicated (without systemic symptoms) or Complicated (systemic symptoms)? @ -Complicated Side effects of treatment? @ -No Exacerbation, Progression, or Severe Exacerbation? @ -No Poses a threat to life or bodily function? How? (Chest pain, USA, PA, pneumonia, PE, COPD, DKA, ARF, appy, cholecystitis, CVA, Diverticulitis, Homicidal, Suic idal, threat to staff... and all critical care pts) @ -Possibly - Lab Data Result diagrams: 01/21/25 19:45 01/21/25 19:45 Lab Results 01/21/25 01/21/25 01/21/25 Range/Units 19:45 19:45 19:45 WBC 9.18 (4.50-10.00) 10*3/uL RBC 4.45 (4.40-5.60) 10*6/uL Hgb 15.0 (13.0-17.0) g/dL Hct 43.9 (39.6-50.0) % MCV 98.7 H (80.0-97.0) fL MCH 33.7 H (27.0-32.0) pg MCHC 34.2 (32.0-37.0) g/dL Plt Count 164 (140-440) 10*3/uL MPV 11.7 (9.5-12.2) fL Immature Gran % (Auto) 1.0 % Neutrophils % 87.9 % Lymphocytes % 5.2 % Monocytes % 5.4 % Eosinophils % 0.2 % Basophils % 0.3 % Immature Gran # 0.09 H (0.00-0.04) 10*3/uL Neutrophils # 8.06 H (1.80-7.70) 10*3/uL Lymphocytes # 0.48 L (0.90-5.00) 10*3/uL Monocytes # 0.50 (0.20-1.00) 10*3/uL Eosinophils # 0.02 L (0.04-0.35) 10*3/uL Basophils # 0.03 (0.00-0.10) 10*3/uL Sodium 140 (137-145) mmol/L Potassium 4.5 (3.5-5.1) mmol/L Chloride 107 (98-107) mmol/L Carbon Dioxide 23 (22-30) mmol/L Anion Gap 10 mmol/L BUN 45 H (9-20) mg/dL Creatinine 1.44 H (0.66-1.25) mg/dL Est GFR (CKD-EPI)AfAm 52 (>60 ml/min/1.73 sqM) Est GFR (CKD-EPI)NonAf 45 (>60 ml/min/1.73 sqM) Glucose 145 H (74-99) mg/dL Plasma Lactic Acid Corwin 1.4 (0.7-2.0) mmol/L Calcium 9.7 (8.4-10.2) mg/dL Total Bilirubin 0.8 (0.2-1.3) mg/dL AST 26 (17-59) U/L ALT 19 (4-49) U/L Alkaline Phosphatase 99 (38-126) U/L Ammonia <9 (<30) umol/L Total Protein 6.8 (6.3-8.2) g/dL Albumin 4.1 (3.5-5.0) g/dL Urine Color Urine Appearance (Clear) Urine pH (5.0-8.0) Ur Specific [place] (1.001-1.035) Urine Protein (Negative) Urine Glucose (UA) (Negative) Urine Ketones (Negative) Urine Blood (Negative) Urine Nitrite (Negative) Urine Bilirubin (Negative) Urine Urobilinogen (<2.0) mg/dL Ur Leukocyte Esterase (Negative) Urine RBC (0-5) /hpf Urine WBC (0-5) /hpf Calcium Oxalate Crystal (None) /hpf Urine Bacteria (None) /hpf Urine Yeast (Budding) (None) /hpf Influenza Type A (PCR) (Not Detectd) Influenza Type B (PCR) (Not Detectd) RSV (PCR) (Not Detectd) SARS-CoV-2 (PCR) (Not Detectd) 01/21/25 01/21/25 Range/Units 19:45 23:08 WBC (4.50-10.00) 10*3/uL RBC (4.40-5.60) 10*6/uL Hgb (13.0-17.0) g/dL Hct (39.6-50.0) % MCV (80.0-97.0) fL MCH (27.0-32.0) pg MCHC (32.0-37.0) g/dL Plt Count (140-440) 10*3/uL MPV (9.5-12.2) fL Immature Gran % (Auto) % Neutrophils % % Lymphocytes % % Monocytes % % Eosinophils % % Basophils % % Immature Gran # (0.00-0.04) 10*3/uL Neutrophils # (1.80-7.70) 10*3/uL Lymphocytes # (0.90-5.00) 10*3/uL Monocytes # (0.20-1.00) 10*3/uL Eosinophils # (0.04-0.35) 10*3/uL Basophils # (0.00-0.10) 10*3/uL Sodium (137-145) mmol/L Potassium (3.5-5.1) mmol/L Chloride (98-107) mmol/L Carbon Dioxide (22-30) mmol/L Anion Gap mmol/L BUN (9-20) mg/dL Creatinine (0.66-1.25) mg/dL Est GFR (CKD-EPI)AfAm (>60 ml/min/1.73 sqM) Est GFR (CKD-EPI)NonAf (>60 ml/min/1.73 sqM) Glucose (74-99) mg/dL Plasma Lactic Acid Corwin (0.7-2.0) mmol/L Calcium (8.4-10.2) mg/dL Total Bilirubin (0.2-1.3) mg/dL AST (17-59) U/L ALT (4-49) U/L Alkaline Phosphatase (38-126) U/L Ammonia (<30) umol/L Total Protein (6.3-8.2) g/dL Albumin (3.5-5.0) g/dL Urine Color Colorless Urine Appearance Cloudy (Clear) Urine pH 5.0 (5.0-8.0) Ur Specific [place] 1.013 (1.001-1.035) Urine Protein Trace H (Negative) Urine Glucose (UA) Negative (Negative) Urine Ketones Negative (Negative) Urine Blood Moderate H (Negative) Urine Nitrite Negative (Negative) Urine Bilirubin Negative (Negative) Urine Urobilinogen <2.0 (<2.0) mg/dL Ur Leukocyte Esterase Large H (Negative) Urine RBC 43 H (0-5) /hpf Urine WBC 134 H (0-5) /hpf Calcium Oxalate Crystal Occasional H (None) /hpf Urine Bacteria Occasional H (None) /hpf Urine Yeast (Budding) Rare H (None) /hpf Influenza Type A (PCR) Not Detected (Not Detectd) Influenza Type B (PCR) Not Detected (Not Detectd) RSV (PCR) Not Detected (Not Detectd) SARS-CoV-2 (PCR) Not Detected (Not Detectd) - EKG Data -: EKG Interpreted by Tn EKG Comments: EKG taken at 20: 12 showing a sinus rhythm with occasional P AC, right bundle branch block. Ventricular rate 68, MN interval 286, QRS duration 147, QT/QTc 442/442. - Radiology Data Radiology results: report reviewed, image reviewed Disposition Clinical Impression: UTI (urinary tract infection) Disposition: ADMITTED IP TO THIS [facility] Condition: Stable Referrals: Benigno Epps MD [Primary Care Provider] - 1-2 days Time of Disposition: 00:17
[2025-01-21 20:37] LABS: ALT 19 U/L (4-49); African American GFR (CKD) 52 (>60 ml/min/1.73 sqM); Albumin 4.1 g/dL (3.5-5.0); Anion Gap 10 mmol/L; Blood Urea Nitrogen 45 mg/dL (9-20); Calcium 9.7 mg/dL (8.4-10.2); Carbon Dioxide 23 mmol/L (22-30); Chloride 107 mmol/L (98-107); Glucose 145 mg/dL (74-99); Non-African American GFR(CKD) 45 (>60 ml/min/1.73 sqM); Sodium 140 mmol/L (137-145); Total Bilirubin 0.8 mg/dL (0.2-1.3); Total Protein 6.8 g/dL (6.3-8.2)
[2025-01-21 20:38] LABS: Lactic Acid, Venous 1.4 mmol/L (0.7-2.0)
[2025-01-21 20:39] LABS: AST 26 U/L (17-59); Potassium 4.5 mmol/L (3.5-5.1)
[2025-01-21 20:40] LABS: Alkaline Phosphatase 99 U/L (38-126)
[2025-01-21 20:58] LABS: Influenza A Not Detected (Not Detectd); Influenza B Not Detected (Not Detectd); RSV Not Detected (Not Detectd)
--- NOTE | 2025-01-21 20:58 | CT ---
EXAMINATION TYPE: CT brain wo con DATE OF EXAM: 01/21/2025 8:36 PM COMPARISON: 08/06/2018 CLINICAL INDICATION: Male, 79 years old with history of Altered mental status, ams TECHNIQUE: CT of the brain is performed utilizing 3 mm thick sections through the posterior fossa and 3 mm thick sections through the remaining calvarium. Study is performed within 24 hours of arrival to the hospital. Contrast used: mL of , (none if empty) CT DLP: 1172.4 mGycm, Automated exposure control for dose reduction was used. FINDINGS: No abnormal hyperdensity is present to suggest an acute intracranial hemorrhage. No mass lesion is evident. No acute infarcts are evident. Periventricular white matter hypodensity is present, likely on the bas is of chronic white matter ischemic changes. Ventricles and sulci are prominent for the patient age. Paranasal sinuses and mastoid air cells within the [id number] are clear. IMPRESSION: 1. No acute intracranial process. Follow up MRI can be performed as clinically indicated. 2. Chronic appearing periventricular white matter ischemic type changes with atrophy. Findings are pr ogressive from 2018 [facility], Workstation: [id number] [place], 01/21/2025 8:56 PM
--- NOTE | 2025-01-21 21:20 | XR ---
EXAMINATION TYPE: XR chest 2V DATE OF EXAM: 01/21/2025 8:29 PM COMPARISON: 08/13/2018 CLINICAL INDICATION: Male, 79 years old with history of altered mental status, TECHNIQUE: XR chest 2V view(s) obtained. FINDINGS: The heart size is enlarged. The pulmonary vasculature is normal. The lungs are clear. IMPRESSION: 1. No acute pulmonary process. 2. Cardiomegaly [facility], Workstation: [facility], 01/21/2025 9:18 PM
[2025-01-21 23:43] LABS: Appearance,Urine Cloudy (Clear); Bacteria,Urine Occasional /hpf; Bilirubin,Urine Negative (Negative); Blood,Urine Moderate (Negative); Budding Yeast,Urine Rare /hpf; Calcium Oxalate Crystals,Urine Occasional /hpf; Color,Urine Colorless; Glucose,Urine (UA) Negative (Negative); Ketones,Urine Negative (Negative); Leukocyte Esterase,Urine Large (Negative); Nitrite,Urine Negative (Negative); Protein,Urine Trace (Negative); RBC,Urine 43 /hpf (0-5); Specific Gravity,Urine 1.013 (1.001-1.035); Urobilinogen,Urine <2.0 mg/dL (<2.0); WBC,Urine 134 /hpf (0-5)
[2025-01-22] MEDS ORDERED: ACETAMINOPHEN TAB 325 MG TAB PO PRN (00:16)
[2025-01-22] MEDS ORDERED: NALOXONE 0.4 MG/ML 1 ML VIAL IV PRN (00:16)
[2025-01-22] MEDS: SODIUM CHLORIDE 0.9% 1,000 ML IV SCH (01:10)
--- NOTE | 2025-01-22 11:28 | P.HPIM ---
History of Present Illness 79-year-old male was brought in because of concerns of altered mental status. Patient does have memory issues but yesterday as per the patient is more delirious, confused. Patient had a CT of the head which showed some chronic m icrovascular ischemic changes but these are new compared to CTA of the head that was done in 2018. Patient was started on antibiotics for UTI. Patient urine is abnormal but patient does not have any fever chills does not have any leukocytosis, will obtain a procalcitonin level. Patient does not have any dysuria or increased urinary frequency or urgency. Patient is incontinent. Patient denied any cough fever chills. Chest x-ray did not show any pneumonia. Patient serum creatinine is 1.4 which is actually better than his baseline. Patient's BUN is 40 patient does take aspirin and statin at home. REVIEW OF SYSTEMS: All other systems are negative except those mentioned in the HPI PHYSICAL EXAMINATION: GENERAL: The patient is alert and oriented x3, not in any acute distress. Well developed, well nourished. HEENT: Pupils are round and equally reacting to light. EOMI. No scleral icterus. No conjunctival pallor. Normocephalic, atraumatic. No pharyngeal erythema. No thyromegaly. CARDIOVASCULAR: S1 and S2 present. No murmurs, rubs, or gallops. PULMONARY: Chest is clear to auscultation, no wheezing or crackles. ABDOMEN: Soft, nontender, nondistended, normoactive bowel sounds. No palpable organomegaly. MUSCULOSKELETAL: No joint swelling or deformity. EXTREMITIES: No cyanosis, clubbing, or pedal edema. NEUROLOGICAL: Gross neurological examination did not reveal any focal deficits. SKIN: No rashes. Assessment and plan -Altered mental status my suspicion is low for UTI I will obtain a procalcitonin level will discontinue the antibiotics at this time patient does have asymptomatic bacteriuria. Will consult neurology to evaluate for TIAs. Patient probably has vascular dementia and multiple small TIAs are making his memory worse. Generalized deconditioning: PT and OT evaluation - Chronic kidney disease stage IIIb/IV: Patient is on diuretic patient does not have any history of congestive heart failure we will hold off on the diuretic. Will start him on IV fluids. Will recheck the serum creatinine there may be some acute component to his renal failure. Although his PAO inhibitor will be continued - Hypothyroidism - Hypertension DVT prophylaxis: Heparin subcutaneous Past Medical History Past Medical History: Atrial Fibrillation, Cancer, Heart Failure, Hyperlipidemia, Hypertension, Prostate Disorder, Seizure Disorder, Thyroid Disorder Additional Past Medical History / Comment(s): gout, pt states he believes he has a hx of afib, but not completely sure. He states he was told by his electrocardiograph operator in [place] about it, and is not on any medications anticoagulants for it that he knows of. skin ca with removal History of Any Multi-Drug Resistant Organisms: None Reported Past Surgical History: Prostate Surgery Additional Past Surgical History / Comment(s): TURP 2017 in [place] for BPH, hernia repair Past Anesthesia/Blood Transfusion Reactions: No Reported Reaction Past Psychological History: No Psychological Hx Reported Smoking Status: Unknown if ever smoked Past Alcohol Use History: Occasional Past Drug Use History: None Reported - Past Family History Mother Family Medical History: Cancer Additional Family Medical History / Comment(s): Breast cancer Father Family Medical History: Cancer Sister(s) Family Medical History: Cancer Medications and Allergies Home Medications Medication Instructions Recorded Confirmed Type Aspirin [Adult Low Dose Aspirin EC] 81 mg PO HS 08/13/18 01/21/25 History Levothyroxine Sodium [Synthroid] 88 mcg PO -BRKFST 08/13/18 01/21/25 History Pravastatin Sodium [Pravachol] 20 mg PO 08/13/18 01/21/25 History allopurinoL [Zyloprim] 100 mg PO -BRKFST 08/13/18 01/21/25 History Amlodipine Besylate/Valsartan 1 tab PO -BRKFST 02/29/20 01/21/25 History [Exforge 5-160 MG] Tamsulosin [Flomax] 0.8 mg PO -BRKFST 02/29/20 01/21/25 History Furosemide [Lasix] 20 mg PO -BRKFST 01/21/25 01/21/25 History hydrALAZINE HCL [Apresoline] 50 mg PO BID-W/MEALS 01/21/25 01/21/25 History Allergies Allergy/AdvReac Type Severity Reaction Status Date / Time No Known Allergies Allergy Verified 01/21/25 20:45 Physical Exam Vitals: Vital Signs Temp Pulse Resp BP Pulse Ox 01/22/25 10:46 63 18 137/66 96 01/22/25 09:15 62 16 156/111 95 01/22/25 06:08 97.6 F 69 17 162/67 97 01/22/25 01:46 65 17 136/63 97 01/21/25 22:33 18 148/67 01/21/25 19:26 97.5 F L 66 18 156/62 98 Intake and Output 01/21/25 01/22/25 01/22/25 22:59 06:59 14:59 Other: Weight 83.915 kg Results CBC & Chem 7: 01/21/25 19:45 01/21/25 19:45 Labs: Abnormal Lab Results - Last 24 Hours (Table) 01/21/25 01/21/25 01/21/25 Range/Units 19:45 19:45 23:08 MCV 98.7 H (80.0-97.0) fL MCH 33.7 H (27.0-32.0) pg Immature Gran # 0.09 H (0.00-0.04) 10*3/uL Neutrophils # 8.06 H (1.80-7.70) 10*3/uL Lymphocytes # 0.48 L (0.90-5.00) 10*3/uL Eosinophils # 0.02 L (0.04-0.35) 10*3/uL BUN 45 H (9-20) mg/dL Creatinine 1.44 H (0.66-1.25) mg/dL Glucose 145 H (74-99) mg/dL Urine Protein Trace H (Negative) Urine Blood Moderate H (Negative) Ur Leukocyte Esterase Large H (Negative) Urine RBC 43 H (0-5) /hpf Urine WBC 134 H (0-5) /hpf Calcium Oxalate Crystal Occasional H (None) /hpf Urine Bacteria Occasional H (None) /hpf Urine Yeast (Budding) Rare H (None) /hpf
[2025-01-22] MEDS ORDERED: amLODIPine 5 MG TAB PO SCH (11:30)
[2025-01-22] MEDS: VALSARTAN 160 MG TAB PO SCH (11:50)
[2025-01-22] MEDS: hydrALAZINE HCL 50 MG TAB PO SCH (11:50)
[2025-01-22] MEDS: amLODIPine 5 MG TAB PO SCH (11:51)
[2025-01-22] MEDS: LEVOTHYROXINE 88 MCG TAB PO SCH (12:26)
[2025-01-22] MEDS: HEPARIN SODIUM,PORCINE 5,000 UNIT/ML 1 ML VIAL SQ SCH (16:49)
[2025-01-22] MEDS: TAMSULOSIN 0.4 MG CAP.ER.24H PO SCH (20:20)
[2025-01-22] MEDS ORDERED: QUEtiapine 25 MG TAB PO PRN (21:00)
[2025-01-22] MEDS: ASPIRIN 81 MG PO SCH (21:21)
[2025-01-22] MEDS: PRAVASTATIN SODIUM 20 MG TAB PO SCH (21:24)
[2025-01-23] MEDS: allopurinoL 100 MG TAB PO SCH (08:16)
[2025-01-23 08:18] LABS: Blood Urea Nitrogen 26.4 mg/dL (9.0-27.0); Calcium 8.7 mg/dL (8.7-10.3); Chloride 107 mmol/L (96-109); Chol/HDL Ratio 2.63 Ratio; Glucose 108 mg/dL (70-110); LDL Cholesterol,Calculated 65.4 mg/dL (0.0-131.0); Potassium 3.9 mmol/L (3.5-5.5); Sodium 140 mmol/L (135-145)
[2025-01-23] MEDS: AMPICILLIN-SULBACTAM 3 GM in SODIUM CHLORIDE 0.9% 100 ML IVPB SCH ×2 (14:58→21:15)
--- NOTE | 2025-01-23 15:41 | XR ---
EXAMINATION TYPE: XR KUB DATE OF EXAM: 01/23/2025 COMPARISON: Multiple KUB radiographs with most recent 04/08/2020 HISTORY: Hypertension, hematuria TECHNIQUE: Single supine KUB image of the abdomen is obtained FINDINGS: Small bowel demonstrates no evidence for dilatation or air fluid levels. Gas and fecal material is seen in non-distended colon. No convincing evidence for pneumoperitoneum. No unusual calcifications. The lung bases are clear. The osseous structures are intact. IMPRESSION: Overall nonobstructive bowel gas pattern. [facility], , 01/23/2025 3:38 PM
[2025-01-23] MEDS ORDERED: hydrALAZINE HCL 50 MG TAB PO SCH (16:00)
[2025-01-23] MEDS: hydrALAZINE HCL 50 MG TAB PO SCH (17:15)
--- NOTE | 2025-01-23 19:36 | P.PN ---
Subjective Progress Note Date: 01/23/25 79-year-old male was brought in because of concerns of altered mental status. Patient does have memory issues but yesterday as per the patient is more delirious, confused. Patient had a CT of the head which showed some chronic microvascular ischemic changes but these are new compared to CTA of the head that was done in 2018. Patient was started on antibiotics for UTI. Patient urine is abnormal but patient does not have any fever chills does not have any leukocytosis, will obtain a procalcitonin level. Patient does not have any dysuria or increased urinary frequency or urgency. Patient is incontinent. Patient denied any cough fever chills. Chest x-ray did not show any pneumonia. Patient serum creatinine is 1.4 which is actually better than his baseline. Patient's BUN is 40 patient does take aspirin and statin at home. 01/23/2025 Patient is evaluated today in follow up. Per at the bedside his mentation is significantly improved. Neurology consult not needed at this time and has been cancelled. Urine culture showing group D enteroccocus and also had positive blood cultures. ID was consulted. Patient transitioned to IV unasyn. He remains on normal saline at 75 mls/hr. He has been retaining urine and indwelling velarde catheter to be placed. He will be started on flomax as well. Review of Systems Constitutional: Denied any fatigue denied any fever. Cardio vascular: denied any chest pain, palpitations Gastrointestinal: denied any nausea, vomiting, diarrhea Has retention Pulmonary: Denied any shortness of breath cough Neurologic denied any new focal deficits All inpatient medications were reviewed and appropriate changes in these medications as dictated in the interval history and assessment and plan. PHYSICAL EXAMINATION: GENERAL: The patient is alert and oriented x3, not in any acute distress. Well developed, well nourished. HEENT: Pupils are round and equally reacting to light. EOMI. No scleral icterus. No conjunctival pallor. Normocephalic, atraumatic. No pharyngeal erythema. No thyromegaly. CARDIOVASCULAR: S1 and S2 present. No murmurs, rubs, or gallops. PULMONARY: Chest is clear to auscultation, no wheezing or crackles. ABDOMEN: Soft, nontender, nondistended, normoactive bowel sounds. No palpable organomegaly. MUSCULOSKELETAL: No joint swelling or deformity. EXTREMITIES: No cyanosis, clubbing, or pedal edema. NEUROLOGICAL: Gross neurological examination did not reveal any focal deficits. SKIN: No rashes. Assessment and plan - Altered mental status from acute metabolic encephalopathy -UTI with sepsis and bacteremia -Urinary retention and hematuria -Generalized deconditioning: PT and OT evaluation - Chronic kidney disease stage IIIb/IV - Hypothyroidism - Hypertension DVT prophylaxis: Heparin subcutaneous Plan ID consultation Repeat blood cultures Antibiotics adjusted to IV unasyn Continue flomax Place indwelling velarde catheter Check KUB Monitor electrolyes and renal function The impression and plan of care has been dictated by Paige Sharp, Nurse Practitioner as directed. Dr. Adrienne MD I have performed a history and physical examination and medical decision making of this patient, discussed the same with the dictator, and agree with the dictators assessment and plan as written, documented as a scribe. Based on total visit time, I have performed more than 50% of this visit. Objective - Vital Signs Vital signs: Vital Signs Temp 98.0 F 01/23/25 13:03 Pulse 66 01/23/25 13:03 Resp 17 01/23/25 13:03 BP 138/61 01/23/25 13:03 Pulse Ox 98 01/23/25 13:03 FiO2 Intake & Output 01/23/25 01/23/25 01/24/25 06:59 18:59 06:59 Output Total 920 1843 Balance -920 -1843 Output: Urine 920 1200 Straight 920 Post Void Residual 0 643 Other: Voiding Method External Catheter External Catheter # Voids 1 # Bowel Movements 0 3 - Labs CBC & Chem 7: 01/21/25 19:45 01/23/25 05:05 Labs: Abnormal Lab Results - Last 24 Hours (Table) 01/23/25 Range/Units 05:05 BUN/Creatinine Ratio 24.00 H (12.00-20.00) Ratio Microbiology - Last 24 Hours (Table) 01/22/25 01:00 Blood Culture Gram Stain - Preliminary Blood Blood Culture - Preliminary Coagulase Negative Staph Molecular ID 01/21/25 23:08 Urine Culture - Preliminary Urine,Voided Group D Enterococcus Assessment and Plan Time with Patient: Less than 30
--- NOTE | 2025-01-23 22:10 | P.CONS ---
History of Present Illness - Reason for Consult Consult date: 01/23/25 Bacteremia Requesting physician: Paige Sharp - Chief Complaint Weakness and mental status changes x 1 day - History of Present Illness Patient is a 80-year-old male with a past medical history significant for hypertension hyperlipidemia atrial fibrillation prostate disorder and heart failure patient has been brought into the hospital 2 days ago for evaluation of mental status changes patient was noticed to be more confused lethargic and not acting himself for the patient has been brought to the hospital and the has been concerned about possible UTI for the patient has been reporting on presentation to the hospital patient was afebrile and no fever have been called subsequently patient was nontachycardic hypotensive or hypoxic he did have a w ozzy count of 9.18 BUN and creatinine has been mildly elevated patient liver isms are normal urine has been positive with large leukocyte esterase more than 134 WBC urine is growing Enterococcus blood cultures came back positive with a coagulase-negative staph from previous consultation patient did receive ceftriaxone in the ER patient did have some improvement in the mentation as reported by the patient has been complaining of urinary burning and difficulty denies any flank pain he did have some nausea but no vomiting and no diarrhea Review of Systems Positive point and negatives has been mentioned in the HPI, complete review of systems was performed and all other systems are negative Past Medical History Past Medical History: Atrial Fibrillation, Cancer, Heart Failure, Hyperlipidemia, Hypertension, Prostate Disorder, Thyroid Disorder Additional Past Medical History / Comment(s): gout, pt states he believes he has a hx of afib, but not completely sure. He states he was told by his shipping support clerk in [place] about it, and is not on any medications anticoagulants for it that he knows of. skin ca with removal. History of Any Multi-Drug Resistant Organisms: None Reported Past Surgical History: Prostate Surgery Additional Past Surgical History / Comment(s): TURP 2017 in [place] for BPH, hernia repair Past Anesthesia/Blood Transfusion Reactions: No Reported Reaction Past Psychological History: No Psychological Hx Reported Additional Psychological History / Comment(s): lives at home with . Smoking Status: Unknown if ever smoked Past Alcohol Use History: Occasional Past Drug Use History: None Reported - Past Family History Mother Family Medical History: Cancer Additional Family Medical History / Comment(s): Breast cancer Father Family Medical History: Cancer Sister(s) Family Medical History: Cancer Medications and Allergies Home Medications Medication Instructions Recorded Confirmed Type Aspirin [Adult Low Dose Aspirin EC] 81 mg PO HS 08/13/18 01/21/25 History Levothyroxine Sodium [Synthroid] 88 mcg PO -KT 08/13/18 01/21/25 History Pravastatin Sodium [Pravachol] 20 mg PO HS 08/13/18 01/21/25 History allopurinoL [Zyloprim] 100 mg PO -[facility] [place] 08/13/18 01/21/25 History Amlodipine Besylate/Valsartan 1 tab PO -[facility] [place] 02/29/20 01/21/25 History [Exforge 5-160 MG] Tamsulosin [Flomax] 0.8 mg PO -[facility] [place] 02/29/20 01/21/25 History Furosemide [Lasix] [address] [facility] 01/21/25 01/21/25 History hydrALAZINE HCL [Apresoline] 50 mg PO BID-W/[facility] 01/21/25 01/21/25 History Allergies Allergy/AdvReac Type Severity Reaction Status Date / Time No Known Allergies Allergy Verified 01/21/25 20:45 Physical Exam Vitals: Vital Signs Temp Pulse Pulse Resp BP BP Pulse Ox 01/23/25 07:00 98.1 F 63 16 154/64 99 01/23/25 04:05 98.2 F 86 17 149/73 98 01/22/25 19:40 98.9 F 54 L 17 149/61 95 01/22/25 14:26 98.7 F 62 16 168/52 95 01/22/25 13:35 97.5 F L 65 18 147/85 97 01/22/25 11:48 78 18 104/68 97 Intake and Output 01/22/25 01/23/25 01/23/25 22:59 06:59 14:59 Intake Total 118 Output Total 1207 920 241 Balance -1089 -920 -241 Intake: Oral 118 Output: Urine 550 920 Straight 550 920 Post Void Residual 657 0 241 Other: Voiding Method External Catheter External Catheter External Catheter # Voids 1 # Bowel Movements 0 GENERAL DESCRIPTION: Elderly male up in the chair no distress. No tachypnea or accessory muscle of respiration use. HEENT: Shows Pallor , no scleral icterus. Oral mucous membrane is dry. No pharyngeal erythema or thrush NECK: Trachea central, no thyromegaly. LUNGS: Unlabored breathing. Clear to auscultation anteriorly. No wheeze or crackle. HEART: S1, S2, regular rate and rhythm. No loud murmur ABDOMEN: Soft, no tenderness , guarding or rigidity, no organomegaly EXTREMITIES: No edema of feet. SKIN: No rash, no masses palpable. NEUROLOGICAL: The patient is awake, alert, oriented x3, mood and affect normal. Results CBC & Chem 7: 01/21/25 19:45 01/23/25 05:05 Labs: Abnormal Lab Results - Last 24 Hours (Table) 01/23/25 Range/Units 05:05 BUN/Creatinine Ratio 24.00 H (12.00-20.00) Ratio Microbiology - Last 24 Hours (Table) 01/21/25 23:08 Urine Culture - Preliminary Urine,Voided Group D Enterococcus 01/22/25 01:00 Blood Culture Gram Stain - Preliminary Blood Blood Culture - Preliminary Molecular ID Assessment and Plan (1) Positive blood culture Current Visit: Yes Status: Acute Code(s): R78.81 - BACTEREMIA SNOMED Code(s): 099448201 (2) UTI (urinary tract infection) Current Visit: Yes Status: Acute Code(s): N39.0 - URINARY TRACT INFECTION, SITE NOT SPECIFIED SNOMED Code(s): 35734810 Plan: 1patient presented to hospital with weakness and lethargy mental status changes in this patient also have a urinary symptoms of burning and difficulty urination positive UA concerning for symptomatic UTI with urine culture currently growing Enterococcus with sensitivities pending. 2patient did have positive blood culture with staph epi more likely skin conta mination as the patient has no clinical disease to go along with it. 3we will start the patient on Unasyn 3 g every 8 hours awaiting for sensitivity to finalize Multiple question and concerns were answered We will follow on clinical condition and cultures to further adjust medication if needed Thank you for this consultation we will follow the patient along with you Dictation was produced using [employer] software. please excuse any grammatical, word or spelling errors. Time with Patient: Greater than 30
[2025-01-24 09:03] LABS: BUN/Creat Ratio 18.91 Ratio (12.00-20.00); Blood Urea Nitrogen 20.8 mg/dL (9.0-27.0); Calcium 8.4 mg/dL (8.7-10.3); Carbon Dioxide 23.2 mmol/L (21.6-31.8); Chloride 106 mmol/L (96-109); Glucose 99 mg/dL (70-110); Potassium 4.1 mmol/L (3.5-5.5); Sodium 138 mmol/L (135-145)
--- NOTE | 2025-01-24 14:37 | CDI ---
Date: 01/24/2025 From: Huma [email or web address] Phone: [email or web address] Admit Date: 01/22/2025 12:18:00 AM Patient Name: Rafael Hui Visit Number: [id number] Discharge Date: N/A ATTENTION: The Clinical Documentation Specialists (CDI) and [facility] Coding Staff appreciate your assistance in clarifying documentation. Please respond to the clarification below the line at the bottom and electronically sign. The CDI & [facility] Coding staff will review the response and follow-up if needed. Please note: Queries are made part of the Legal Health Record. If you have any questions, please contact the author of this message via ITS. Dr. Soren Deleon, Sepsis is documented in the Internal Medicine Progress Note on 01/23/2025 - which may lack sufficient clinical evidence/support in the medical record. Additional clarification is requested. History/Risk Factors: 79-year-old male presented to [facility] ED for evaluation due to concerns of altered mental status. PMH: Hypertension, seizure disorder, gout, atrial fibrillation, hyperlipidemia Clinical Indicators: Documentation Location: Electronic Medical Record Internal Medicine Progress Note (02/12/2025): UTI with sepsis and bacteremia Infectious Disease Consult Note (01/23/2025): o Positive blood culture. UTI o Patient did have positive blood culture with Staph epi, more likely skin contamination as the patient has no clinical disease to go along with it Vital Sign Trend: Date Time Temperature HR RR BP SpO2 01/22/2025 06:08 97.6 F (Axillary) 69 17 162/67 97% on Room Air 01/22/2025 13:35 97.5 F (Oral) 65 18 147/85 95% on Room Air 01/23/2025 13:03 98.0 F (Oral) 66 17 138/61 98% on Room Air 01/24/2025 13:48 97.6 F (Oral) 66 16 144/56 96% on Room Air Lab Results: 01/21/2025 WBC 9.18 No Additional Results Noted Other Clinical Indicators: Blood Cultures (Collected on 01/22/2025): Staphylococcus coagulase negative (Preliminary Result) Urine Culture (Collected 01/21/2025): Group D Enterococcus (Preliminary Result) Lactic Acid (01/21/2025): 1.4 Procalcitonin (01/21/2025): <0.20 Treatment: Infectious Disease Consultation Rocephin 2g IVPB x 1 in ED Rocephin 1g IVPB Daily (Received 1 Dose Discontinued) Unasyn 3g IVPB Every 8 Hours (Received 1 Dose) 3g IVPB Every 6 Hours 0.9% Sodium Chloride IV Infusion @ 75mL/hr. After work up and study, please clarify which diagnosis is most appropriate? [ ] Sepsis has been ruled out [ x ] Sepsis (present on admission) is a valid diagnosis as evidenced by the following (please add rationale): __Mental status _changes [ ] Sepsis (not present on admission) is a valid diagnosis as evidenced by the following (please add rationale): [ ] Other, please specify [ ] Unable to determine SIRS Criteria (2 or more of the following may indicate SIRS): Temperature < 96.8F (36C) or > 101.0F (38.3C) Heart Rate > 90 bpm Respiratory Rate > 20 breaths/min or PaCO2 < 32 mmHg White Blood Cell Count > 12,000 or < 4,000 cells/mm3 or > 10% bands MTDD
--- NOTE | 2025-01-24 16:10 | P.PN ---
Subjective Progress Note Date: 01/24/25 Principal diagnosis: Reason for follow-up is UTI and bacteremia Patient is a 80-year-old male with a past medical history significant for hypertension hyperlipidemia atrial fibrillation prostate disorder and heart failure patient has been brought into the hospital for evaluation of mental status changes patient has been diagnosed with a UTI blood cultures came back p ositive prompting this consultation. On today's evaluation that is 01/24/2025, Patient is afebrile patient is currently on room air and denies having any shortness of breath, the patient denies any chest pain or cough, the patient denies any nausea vomiting did not have any abdominal pain and no diarrhea patient did have difficult urination Mueller catheter has been placed. Patient did have a creatinine 1.1 urine is growing Enterococcus blood culture with staph epi Objective - Vital Signs Vital signs: Vital Signs Temp 98.6 F 01/24/25 07:00 Pulse 69 01/24/25 07:00 Resp 16 01/24/25 07:00 BP 149/60 01/24/25 07:00 Pulse Ox 95 01/24/25 07:00 FiO2 Intake & Output 01/23/25 01/24/25 01/24/25 18:59 06:59 18:59 Output Total 1843 1530 Balance -1843 -1530 Output: Urine 1200 1530 Post Void Residual 643 Other: Voiding Method External Catheter External Catheter Indwelling Catheter # Bowel Movements 3 - Exam GENERAL DESCRIPTION: An elderly male lying in bed in no distress RESPIRATORY SYSTEM: Unlabored breathing , decreased breath sounds at bases HEART: S1 S2 regular rate and rhythm , ABDOMEN: Soft , no tenderness EXTREMITIES: No edema feet - Labs CBC & Chem 7: 01/21/25 19:45 01/24/25 05:44 Labs: Abnormal Lab Results - Last 24 Hours (Table) 01/24/25 Range/Units 05:44 Calcium 8.4 L (8.7-10.3) mg/dL Microbiology - Last 24 Hours (Table) 01/22/25 01:00 Blood Culture Gram Stain - Preliminary Blood Blood Culture - Preliminary Coagulase Negative Staph Molecular ID 01/21/25 23:08 Urine Culture - Preliminary Urine,Voided Group D Enterococcus Assessment and Plan (1) Positive blood culture Current Visit: Yes Status: Acute Code(s): R78.81 - BACTEREMIA SNOMED C ode(s): 441188552 (2) UTI (urinary tract infection) Current Visit: Yes Status: Acute Code(s): N39.0 - URINARY TRACT INFECTION, SITE NOT SPECIFIED SNOMED Code(s): 18389939 Plan: 1patient presented to hospital with weakness and lethargy mental status changes in this patient also have a urinary symptoms of burning and difficulty urination positive UA concerning for symptomatic UTI with urine culture currently growing Enterococcus with sensitivities pending. 2patient did have positive blood culture with staph epi more likely skin contamination as the patient has no clinical disease to go along with it. 3patient is currently being treated with Unasyn await sensitivity likely will be able to finish therapy with oral Augmentin discussed with the SLICE CUTTING MACHINE OPERATOR HELPER for admitting team Dictation was produced using [employer] dictation software. please excuse any grammatical, word or spelling errors. Time with Patient: Less than 30
--- NOTE | 2025-01-24 21:34 | P.PN ---
Subjective Progress Note Date: 01/24/25 79-year-old male was brought in because of concerns of altered mental status. Patient does have memory issues but yesterday as per the patient is more delirious, confused. Patient had a CT of the head which showed some chronic microvascular ischemic changes but these are new compared to CTA of the head that was done in 2018. Patient was started on antibiotics for UTI. Patient urine is abnormal but patient does not have any fever chills does not have any leukocytosis, will obtain a procalcitonin level. Patient does not have any dysuria or increased urinary frequency or urgency. Patient is incontinent. Patient denied any cough fever chills. Chest x-ray did not show any pneumonia. Patient serum creatinine is 1.4 which is actually better than his baseline. Patient's BUN is 40 patient does take aspirin and statin at home. 01/23/2025 Patient is evaluated today in follow up. Per at the bedside his mentation is significantly improved. Neurology consult not needed at this time and has been cancelled. Urine culture showing group D enteroccocus and also had positive blood cultures. ID was consulted. Patient transitioned to IV unasyn. He remains on normal saline at 75 mls/hr. He has been retaining urine and indwelling velarde catheter to be placed. He will be started on flomax as well. 01/24/2025 Patient evaluated in follow up. Mentation at baseline. Urine culture pending fin al microsensitivites. Blood culture likely contaminent species. Urinary catheter was placed for retention. states in [place] he had issues with retention requiring strait catheterization. States he has establish with Dr Monsalve and has been urinating without difficulty normally. He is on flomax. Renal function remains WNL. Review of Systems Constitutional: Denied any fatigue denied any fever. Cardio vascular: denied any chest pain, palpitations Gastrointestinal: denied any nausea, vomiting, diarrhea Has retention Pulmonary: Denied any shortness of breath cough Neurologic denied any new focal deficits All inpatient medications were reviewed and appropriate changes in these medications as dictated in the interval history and assessment and plan. PHYSICAL EXAMINATION: GENERAL: The patient is alert and oriented x3, not in any acute distress. Well developed, well nourished. HEENT: Pupils are round and equally reacting to light. EOMI. No scleral icterus. No conjunctival pallor. Normocephalic, atraumatic. No pharyngeal erythema. No thyromegaly. CARDIOVASCULAR: S1 and S2 present. No murmurs, rubs, or gallops. PULMONARY: Chest is clear to auscultation, no wheezing or crackles. ABDOMEN: Soft, nontender, nondistended, normoactive bowel sounds. No palpable organomegaly. MUSCULOSKELETAL: No joint swelling or deformity. EXTREMITIES: No cyanosis, clubbing, or pedal edema. NEUROLOGICAL: Gross neurological examination did not reveal any focal deficits. SKIN: No rashes. Assessment and plan - Altered mental status from acute metabolic encephalopathy -UTI with sepsis and bacteremia -Urinary retention and hematuria -Generalized deconditioning: PT and OT evaluation - Chronic kidney disease stage IIIb/IV - Hypothyroidism - Hypertension DVT prophylaxis: Heparin subcutaneous Plan ID consultation Repeat blood cultures Pending microsensitivities Antibiotics adjusted to IV unasyn Continue flomax Place indwelling velarde catheter Urology consult Check KUB Monitor electrolyes and renal function The impression and plan of care has been dictated by Paige Sharp, Nurse Practitioner as directed. Dr. Adrienne MD I have performed a history and physical examination and medical decision making of this patient, discussed the same with the dictator, and agree with the dictators assessment and plan as written, documented as a scribe. Based on total visit time, I have performed more than 50% of this visit. Objective - Vital Signs Vital signs: Vital Signs Temp 98.7 F 01/24/25 19:46 Pulse 73 01/24/25 19:46 Resp 16 01/24/25 19:46 BP 143/69 01/24/25 19:46 Pulse Ox 97 01/24/25 19:46 FiO2 Intake & Output 01/24/25 01/24/25 01/25/25 06:59 18:59 06:59 Intake Total 236 Output Total 1530 800 Balance -1530 -564 Intake: Oral 236 Output: Urine 1530 800 Other: Voiding Method External Catheter Indwelling Catheter - Labs CBC & Chem 7: 01/21/25 19:45 01/24/25 05:44 Labs: Abnormal Lab Results - Last 24 Hours (Table) 01/24/25 Range/Units 05:44 Calcium 8.4 L (8.7-10.3) mg/dL Microbiology - Last 24 Hours (Table) 01/23/25 10:28 Blood Culture - Preliminary Blood 01/21/25 23:08 Urine Culture - Final Urine,Voided Enterococcus faecalis 01/22/25 01:00 Blood Culture Gram Stain - Final Blood Blood Culture - Final Staphylococcus haemolyticus Molecular ID Assessment and Plan Time with Patient: Less than 30
[2025-01-25 08:01] LABS: Basophils # (A) 0.06 10*3/uL (0.00-0.10); Basophils % (A) 0.7 %; Eosinophils # (A) 0.42 10*3/uL (0.04-0.35); Eosinophils % (A) 4.6 %; HGB 13.5 g/dL (13.0-17.0); Lymphocytes % (A) 8.7 %; MCHC 33.8 g/dL (32.0-37.0); MCV 97.8 fL (80.0-97.0); Mean Platelet Volume 12.3 fL (9.5-12.2); Monocytes # (A) 1.06 10*3/uL (0.20-1.00); Monocytes % (A) 11.5 %; Neutrophils # (A) 6.72 10*3/uL (1.80-7.70); Neutrophils % (A) 73.2 %; Platelet Count 156 10*3/uL (140-440); RBC 4.09 10*6/uL (4.40-5.60); RDW 13.3 % (11.5-14.5); WBC 9.18 10*3/uL (4.50-10.00)
[2025-01-25 08:15] LABS: African American GFR (CKD) 83 (>60 ml/min/1.73 sqM); Anion Gap 7 mmol/L; Blood Urea Nitrogen 20 mg/dL (9-20); Calcium 8.7 mg/dL (8.4-10.2); Carbon Dioxide 22 mmol/L (22-30); Chloride 109 mmol/L (98-107); Glucose 101 mg/dL (74-99); Non-African American GFR(CKD) 72 (>60 ml/min/1.73 sqM); Sodium 138 mmol/L (137-145)
--- NOTE | 2025-01-25 14:28 | P.GSCN ---
History of Present Illness Consult date: 01/25/25 Reason for Consult: Urinary retention, gross hematuria History of present illness: This is an 80-year-old male admitted to the hospital with altered mental status secondary to UTI. His urine culture is growing Enterococcus. Urology is consul vilma for urinary retention and gross hematuria he does have a history of BPH at baseline and is on Flomax twice daily. Previous history of urinary retention status post TURP at [place] in 2017. He continued to empty his bladder incompletely and subsequently was performing CIC. More recently he has been able to void on his own and discontinue the CIC but he is incontinent of urine. Postvoid residual was elevated at 630 mL and subsequently a Mueller catheter was placed for that. Last night and this morning it was noticed that he has been having gross hematuria. No previous history of gross hematuria. He is not on any antiplatelet or anticoagulants. He is a known patient of Dr. Monsalve Review of Systems - Constitutional Denies fever, Denies weight loss - EENT Ears, nose, mouth and throat: Denies dysphagia - Cardiovascular Denies chest pain, Denies shortness of breath - Respiratory Denies cough, Denies 7 - Gastrointestinal Reports as per HPI - Genitourinary Reports hematuria, Denies dysuria, Denies flank pain Past Medical History Past Medical History: Atrial Fibrillation, Cancer, Heart Failure, Hyperlipidemia, Hypertension, Prostate Disorder, Thyroid Disorder Additional Past Medical History / Comment(s): gout, pt states he believes he has a hx of afib, but not completely sure. He states he was told by his bath steward/stewardess in [place] about it, and is not on any medications anticoagulants for it that he knows of. skin ca with removal. History of Any Multi-Drug Resistant Organisms: None Reported Past Surgical History: Prostate Surgery Additional Past Surgical History / Comment(s): TURP 2017 in [place] for BPH, hernia repair Past Anesthesia/Blood Transfusion Reactions: No Reported Reaction Past Psychological History: No Psychological Hx Reported Additional Psychological History / Comment(s): lives at home with . Smoking Status: Unknown if ever smoked Past Alcohol Use History: Occasional Past Drug Use History: None Reported - Past Family History Mother Family Medical History: Cancer Additional Family Medical History / Comment(s): Breast cancer Father Family Medical History: Cancer Sister(s) Family Medical History: Cancer Medications and Allergies Home Medications Medication Instructions Recorded Confirmed Type Aspirin [Adult Low Dose Aspirin EC] 81 mg PO HS 08/13/18 01/21/25 History Levothyroxine Sodium [Synthroid] 88 mcg PO AC-KT 08/13/18 01/21/25 History Pravastatin Sodium [Pravachol] 20 mg PO HS 08/13/18 01/21/25 History allopurinoL [Zyloprim] 100 mg PO -KT 08/13/18 01/21/25 History Amlodipine Besylate/Valsartan 1 tab PO -[facility] 02/29/20 01/21/25 History [Exforge 5-160 MG] Tamsulosin [Flomax] 0.8 mg PO -[facility] 02/29/20 01/21/25 History Furosemide [Lasix] 20 mg PO [facility] 01/21/25 01/21/25 History hydrALAZINE HCL [Apresoline] 50 mg PO BID-[facility] 01/21/25 01/21/25 History Allergies Allergy/AdvReac Type Severity Reaction Status Date / Time No Known Allergies Allergy Verified 01/21/25 20:45 Surgical - Exam Vital Signs Temp Pulse Resp BP Pulse Ox 97.5 F L 66 18 156/62 98 01/21/25 19:26 01/21/25 19:26 01/21/25 19:26 01/21/25 19:26 01/21/25 19:26 - General no distress, no pain - Eyes normal ocular movement, no pale - ENT normal nares, normal mucosa - Respiratory normal expansion, normal respiratory effort - Abdomen Abdomen: soft, non tender, no distended Results - Labs 01/25/25 07:06 01/25/25 07:06 Abnormal Lab Results - Last 24 Hours (Table) 01/25/25 01/25/25 Range/Units 07:06 07:06 RBC 4.09 L (4.40-5.60) 10*6/uL MCV 97.8 H (80.0-97.0) fL MCH 33.0 H (27.0-32.0) pg MPV 12.3 H (9.5-12.2) fL Immature Gran # 0.12 H (0.00-0.04) 10*3/uL Lymphocytes # 0.80 L (0.90-5.00) 10*3/uL Monocytes # 1.06 H (0.20-1.00) 10*3/uL Eosinophils # 0.42 H (0.04-0.35) 10*3/uL Chloride 109 H (98-107) mmol/L Glucose 101 H (74-99) mg/dL Microbiology - Last 24 Hours (Table) 01/23/25 10:28 Blood Culture - Preliminary Blood 01/21/25 23:08 Urine Culture - Final Urine,Voided Enterococcus faecalis 01/22/25 01:00 Blood Culture Gram Stain - Final Blood Blood Culture - Final Staphylococcus haemolyticus Molecular ID Diabetes panel 01/25/25 Range/Units 07:06 Sodium 138 (137-145) mmol/L Potassium 4.0 (3.5-5.1) mmol/L Chloride 109 H (98-107) mmol/L Carbon Dioxide 22 (22-30) mmol/L BUN 20 (9-20) mg/dL Creatinine 0.98 (0.66-1.25) mg/dL Glucose 101 H (74-99) mg/dL Calcium 8.7 (8.4-10.2) mg/dL Calcium panel 01/25/25 Range/Units 07:06 Calcium 8.7 (8.4-10.2) mg/dL Pituitary panel 01/25/25 Range/Units 07:06 Sodium 138 (137-145) mmol/L Potassium 4.0 (3.5-5.1) mmol/L Chloride 109 H (98-107) mmol/L Carbon Dioxide 22 (22-30) mmol/L BUN 20 (9-20) mg/dL Creatinine 0.98 (0.66-1.25) mg/dL Glucose 101 H (74-99) mg/dL Calcium 8.7 (8.4-10.2) mg/dL Adrenal panel 01/25/25 Range/Units 07:06 Sodium 138 (137-145) mmol/L Potassium 4.0 (3.5-5.1) mmol/L Chloride 109 H (98-107) mmol/L Carbon Dioxide 22 (22-30) mmol/L BUN 20 (9-20) mg/dL Creatinine 0.98 (0.66-1.25) mg/dL Glucose 101 H (74-99) mg/dL Calcium 8.7 (8.4-10.2) mg/dL Assessment and Plan Assessment: This is an 80-year-old male with history of urinary retention and gross hematuria. Given his previous history of retention requiring CIC and previous TURP most likely patient is incompletely emptying his bladder at baseline. His gross hematuria secondary most likely to his catheter insertion and trauma from the catheter and the balloon. 1. Urinary retention - Continue Flomax twice daily - He can be discharged home with a Mueller catheter he can follow-up as an outpatient with Dr. Monsalve in 1 week 2. Gross hematuria Can irrigate catheter as needed
--- NOTE | 2025-01-25 22:07 | P.PN ---
Subjective Progress Note Date: 01/25/25 Principal diagnosis: Reason for follow-up is UTI and bacteremia Patient is a 80-year-old male with a past medical history significant for hypertension hyperlipidemia atrial fibrillation prostate disorder and heart failure patient has been brought into the hospital for evaluation of mental status changes patient has been diagnosed with a UTI blood cultures came back p ositive prompting this consultation. On today's evaluation that is 01/25/2025, patient has been afebrile, patient is breathing comfortably and is currently on room air, patient denies having any chest pain and cough, patient denies nausea vomiting or diarrhea and no abdominal pain patient apparently has pulled out his catheter early this morning as to be reinserted because of retention did have significant hematuria. Patient did have white count of 9.18 creatinine 0.98 blood culture repeat negat david urine with Enterococcus faecalis Objective - Vital Signs Vital signs: Vital Signs Temp 98.3 F 01/25/25 07:00 Pulse 73 01/25/25 09:42 Resp 15 01/25/25 07:00 BP 149/49 01/25/25 07:00 Pulse Ox 97 01/25/25 09:42 FiO2 Intake & Output 01/24/25 01/25/25 01/25/25 18:59 06:59 18:59 Intake Total 236 240 Output Total 800 960 Balance -564 -960 240 Intake: Oral 236 240 Output: Urine 800 960 Uretheral (Mueller) 660 Other: Voiding Method Indwelling Catheter Indwelling Catheter Indwelling Catheter - Exam GENERAL DESCRIPTION: An elderly male lying in bed in no distress RESPIRATORY SYSTEM: Unlabored breathing , decreased breath sounds at bases HEART: S1 S2 regular rate and rhythm , ABDOMEN: Soft , no tenderness EXTREMITIES: No edema feet - Labs CBC & Chem 7: 01/25/25 07:06 01/25/25 07:06 Labs: Abnormal Lab Results - Last 24 Hours (Table) 01/25/25 01/25/25 Range/Units 07:06 07:06 RBC 4.09 L (4.40-5.60) 10*6/uL MCV 97.8 H (80.0-97.0) fL MCH 33.0 H (27.0-32.0) pg MPV 12.3 H (9.5-12.2) fL Immature Gran # 0.12 H (0.00-0.04) 10*3/uL Lymphocytes # 0.80 L (0.90-5.00) 10*3/uL Monocytes # 1.06 H (0.20-1.00) 10*3/uL Eosinophils # 0.42 H (0.04-0.35) 10*3/uL Chloride 109 H (98-107) mmol/L Glucose 101 H (74-99) mg/dL Microbiology - Last 24 Hours (Table) 01/23/25 10:28 Blood Culture - Preliminary Blood 01/21/25 23:08 Urine Culture - Final Urine,Voided Enterococcus faecalis 01/22/25 01:00 Blood Culture Gram Stain - Final Blood Blood Culture - Final Staphylococcus haemolyticus Molecular ID Assessment and Plan (1) Positive blood culture Current Visit: Yes Status: Acute Code(s): R78.81 - BACTEREMIA SNOMED Code(s): 457603113 (2) UTI (urinary tract infection) Current Visit: Yes Status: Acute Code(s): N39.0 - URINARY TRACT INFECTION, SITE NOT SPECIFIED SNOMED Code(s): 42566544 Plan: 1patient presented to hospital with weakness and lethargy mental status changes in this patient also have a urinary symptoms of burning and difficulty urination positive UA concerning for symptomatic UTI with urine culture currently growing Enterococcus which is sensitive to penicillin 2patient did have positive blood culture with staph epi more likely skin contamination as the patient has no clinical disease to go along with it. 3patient will treated with Unasyn while inpatient and will transition to oral antibiotics on discharge this was discussed with SURVEY MANAGER for admitting team Dictation was produced using [employer] dictation software. please excuse any grammatical, word or spelling errors. Time with Patient: Less than 30
--- NOTE | 2025-01-25 22:38 | P.PN ---
Subjective Progress Note Date: 01/25/25 79-year-old male was brought in because of concerns of altered mental status. Patient does have memory issues but yesterday as per the patient is more delirious, confused. Patient had a CT of the head which showed some chronic microvascular ischemic changes but these are new compared to CTA of the head that was done in 2018. Patient was started on antibiotics for UTI. Patient urine is abnormal but patient does not have any fever chills does not have any leukocytosis, will obtain a procalcitonin level. Patient does not have any dysuria or increased urinary frequency or urgency. Patient is incontinent. Patient denied any cough fever chills. Chest x-ray did not show any pneumonia. Patient serum creatinine is 1.4 which is actually better than his baseline. Patient's BUN is 40 patient does take aspirin and statin at home. 01/23/2025 Patient is evaluated today in follow up. Per at the bedside his mentation is significantly improved. Neurology consult not needed at this time and has been cancelled. Urine culture showing group D enteroccocus and also had positive blood cultures. ID was consulted. Patient transitioned to IV unasyn. He remains on normal saline at 75 mls/hr. He has been retaining urine and indwelling velarde catheter to be placed. He will be started on flomax as well. 01/24/2025 Patient evaluated in follow up. Mentation at baseline. Urine culture pending fin al microsensitivites. Blood culture likely contaminent species. Urinary catheter was placed for retention. states in [place] he had issues with retention requiring strait catheterization. States he has establish with Dr Monsalve and has been urinating without difficulty normally. He is on flomax. Renal function remains WNL. 01/25/2025 Patient evaluated today in follow up. Got confused overnight and removed his IDC. He now presents with gross hematuria. He was retaining urine and velarde has been replaced. Urine culture showing enterococcus. Blood culture final and showing contaminent species. Review of Systems Constitutional: Denied any fatigue denied any fever. Cardio vascular: denied any chest pain, palpitations Gastrointestinal: denied any nausea, vomiting, diarrhea Has retention Pulmonary: Denied any shortness of breath cough Neurologic denied any new focal deficits All inpatient medications were reviewed and appropriate changes in these medications as dictated in the interval history and assessment and plan. PHYSICAL EXAMINATION: GENERAL: The patient is alert and oriented x3, not in any acute distress. Well developed, well nourished. HEENT: Pupils are round and equally reacting to light. EOMI. No scleral icterus. No conjunctival pallor. Normocephalic, atraumatic. No pharyngeal erythema. No thyromegaly. CARDIOVASCULAR: S1 and S2 present. No murmurs, rubs, or gallops. PULMONARY: Chest is clear to auscultation, no wheezing or crackles. ABDOMEN: Soft, nontender, nondistended, normoactive bowel sounds. No palpable organomegaly. MUSCULOSKELETAL: No joint swelling or deformity. EXTREMITIES: No cyanosis, clubbing, or pedal edema. NEUROLOGICAL: Gross neurological examination did not reveal any focal deficits. SKIN: No rashes. Assessment and plan - Altered mental status from acute metabolic encephalopathy - UTI with sepsis and bacteremia - Urinary retention and hematuria from trauma - Generalized deconditioning: PT and OT evaluation - Chronic kidney disease stage IIIb/IV - Hypothyroidism - Hypertension DVT prophylaxis: Heparin subcutaneous Plan ID consultation Repeat blood cultures Pending microsensitivities Antibiotics adjusted to IV unasyn Continue flomax Reinsert indwelling velarde catheter Urology consult recommending to keep the IDC and follow up with Dr Monsalve in 1 week. Monitor electrolyes and renal function The impression and plan of care has been dictated by Paige Sharp, Nurse Practitioner as directed. Dr. Adrienne MD I have performed a history and physical examination and medical decision making of this patient, discussed the same with the dictator, and agree with the dictators assessment and plan as written, documented as a scribe. Based on total visit time, I have performed more than 50% of this visit. Objective - Vital Signs Vital signs: Vital Signs Temp 98.1 F 01/25/25 20:00 Pulse 77 01/25/25 20:00 Resp 18 01/25/25 20:00 BP 160/63 01/25/25 20:00 Pulse Ox 95 01/25/25 20:00 FiO2 Intake & Output 01/25/25 01/25/25 01/26/25 06:59 18:59 06:59 Intake Total 240 Output Total 960 Balance -960 240 Intake: Oral 240 Output: Urine 960 Uretheral (Velarde) 660 Other: Voiding Method Indwelling Catheter Indwelling Catheter Indwelling Catheter # Voids 625 - Labs CBC & Chem 7: 01/25/25 07:06 01/25/25 07:06 Labs: Abnormal Lab Results - Last 24 Hours (Table) 01/25/25 01/25/25 Range/Units 07:06 07:06 RBC 4.09 L (4.40-5.60) 10*6/uL MCV 97.8 H (80.0-97.0) fL MCH 33.0 H (27.0-32.0) pg MPV 12.3 H (9.5-12.2) fL Immature Gran # 0.12 H (0.00-0.04) 10*3/uL Lymphocytes # 0.80 L (0.90-5.00) 10*3/uL Monocytes # 1.06 H (0.20-1.00) 10*3/uL Eosinophils # 0.42 H (0.04-0.35) 10*3/uL Chloride 109 H (98-107) mmol/L Glucose 101 H (74-99) mg/dL Microbiology - Last 24 Hours (Table) 01/23/25 10:28 Blood Culture - Preliminary Blood Assessment and Plan Time with Patient: Less than 30
[2025-01-26 08:04] LABS: Basophils # (A) 0.07 10*3/uL (0.00-0.10); Basophils % (A) 0.7 %; Eosinophils # (A) 0.54 10*3/uL (0.04-0.35); Eosinophils % (A) 5.6 %; HGB 13.8 g/dL (13.0-17.0); Lymphocytes # (A) 1.11 10*3/uL (0.90-5.00); Lymphocytes % (A) 11.5 %; MCH 33.3 pg (27.0-32.0); MCHC 33.7 g/dL (32.0-37.0); MCV 98.8 fL (80.0-97.0); Mean Platelet Volume 12.4 fL (9.5-12.2); Monocytes # (A) 1.11 10*3/uL (0.20-1.00); Monocytes % (A) 11.5 %; Neutrophils # (A) 6.69 10*3/uL (1.80-7.70); Neutrophils % (A) 69.3 %; Platelet Count 165 10*3/uL (140-440); RBC 4.15 10*6/uL (4.40-5.60); RDW 13.5 % (11.5-14.5); WBC 9.66 10*3/uL (4.50-10.00)
[2025-01-26 11:01] LABS: Calcium 8.5 mg/dL (8.7-10.3); Carbon Dioxide 21.9 mmol/L (21.6-31.8); Chloride 110 mmol/L (96-109); Glucose 101 mg/dL (70-110); Sodium 142 mmol/L (135-145)
--- NOTE | 2025-01-27 09:57 | P.PN ---
Subjective Progress Note Date: 01/27/25 Patient catheter was clogged last night, catheter was subsequently changed. Urine is clearing up this morning Objective - Vital Signs Vital signs: Vital Signs Temp 98.7 F 01/27/25 07:18 Pulse 72 01/27/25 07:18 Resp 17 01/27/25 07:18 BP 189/72 01/27/25 07:18 Pulse Ox 96 01/27/25 07:18 FiO2 Intake & Output 01/26/25 01/27/25 01/27/25 18:59 06:59 18:59 Output Total 1110 1100 Balance -1110 -1100 Output: Urine 1110 1100 Uretheral (Mueller) 1110 Other: Voiding Method Indwelling Catheter Indwelling Catheter # Bowel Movements 2 - Constitutional General appearance: Present: no acute distress - Gastrointestinal General gastrointestinal: Present: soft. Absent: distended, tenderness - Labs CBC & Chem 7: 01/26/25 05:41 01/26/25 05:41 Labs: Abnormal Lab Results - Last 24 Hours (Table) 01/26/25 Range/Units 05:41 Chloride 110 H (96-109) mmol/L Calcium 8.5 L (8.7-10.3) mg/dL Microbiology - Last 24 Hours (Table) 01/23/25 10:28 Blood Culture - Preliminary Blood Assessment and Plan Assessment: This is an 80-year-old male with history of urinary retention and gross hematuria. Given his previous history of retention requiring CIC and previous TURP most likely patient is incompletely emptying his bladder at baseline. His gross hematuria secondary most likely to his catheter insertion and trauma from the catheter and the balloon. Catheter was clogged last night, urine is clearing up this morning. I was able to irrigate the catheter to clear with minimal clot return 1. Urinary retention - Continue Flomax twice daily - He can be discharged home with a Mueller catheter he can follow-up as an outpatient with Dr. Monsalve in 1 week 2. Gross hematuria Can irrigate catheter as needed
--- NOTE | 2025-01-27 09:58 | P.PCN ---
Date of Procedure: 01/27/25 Preoperative Diagnosis: Hematuria Postoperative Diagnosis: Same Procedure(s) Performed: Catheter irrigation Description of Procedure: Using a Florentin syringe and approximately 200 mL of saline the catheter was irrigated to clear, approximately 20 cc of clot was obtained. Patient tolerated the procedure well
--- NOTE | 2025-01-27 12:52 | P.PN ---
Subjective Progress Note Date: 01/26/25 Principal diagnosis: Reason for follow-up is UTI and bacteremia Patient is a 80-year-old male with a past medical history significant for hypertension hyperlipidemia atrial fibrillation prostate disorder and heart failure patient has been brought into the hospital for evaluation of mental status changes patient has been diagnosed with a UTI blood cultures came back p ositive prompting this consultation. On today's evaluation that is 01/26/2025, Patient is afebrile this morning patient denies having any chest pain shortness of breath or cough, the patient is currently on room air, patient denies any abdominal pain no diarrhea no nausea no vomiting. Patient white count is 9.66, creatinine is 1.0 Objective - Vital Signs Vital signs: Vital Signs Temp 98.6 F 01/26/25 07:25 Pulse 87 01/26/25 07:25 Resp 16 01/26/25 07:25 BP 163/74 01/26/25 07:25 Pulse Ox 94 L 01/26/25 07:25 FiO2 Intake & Output 01/25/25 01/26/25 01/26/25 18:59 06:59 18:59 Intake Total 240 Output Total 700 10 Balance 240 -700 -10 Intake: Oral 240 Output: Urine 700 10 Uretheral (Mueller) 10 Other: Voiding Method Indwelling Catheter Indwelling Catheter Indwelling Catheter # Voids 625 - Exam GENERAL DESCRIPTION: An elderly male lying in bed in no distress RESPIRATORY SYSTEM: Unlabored breathing , decreased breath sounds at bases HEART: S1 S2 regular rate and rhythm , ABDOMEN: Soft , no tenderness EXTREMITIES: No edema feet - Labs CBC & Chem 7: 01/26/25 05:41 01/26/25 05:41 Labs: Abnormal Lab Results - Last 24 Hours (Table) 01/26/25 01/26/25 Range/Units 05:41 05:41 RBC 4.15 L (4.40-5.60) 10*6/uL MCV 98.8 H (80.0-97.0) fL MCH 33.3 H (27.0-32.0) pg MPV 12.4 H (9.5-12.2) fL Immature Gran # 0.14 H (0.00-0.04) 10*3/uL Monocytes # 1.11 H (0.20-1.00) 10*3/uL Eosinophils # 0.54 H (0.04-0.35) 10*3/uL Chloride 110 H (96-109) mmol/L Calcium 8.5 L (8.7-10.3) mg/dL Microbiology - Last 24 Hours (Table) 01/23/25 10:28 Blood Culture - Preliminary Blood Assessment and Plan (1) Positive blood culture Current Visit: Yes Status: Acute Code(s): R78.81 - BACTEREMIA SNOMED Code(s): 545376396 (2) UTI (urinary tract infection) Current Visit: Yes Status: Acute Code(s): N39.0 - URINARY TRACT INFECTION, SITE NOT SPECIFIED SNOMED Code(s): 85332506 Plan: 1patient presented to hospital with weakness and lethargy mental status changes in this patient also have a urinary symptoms of burning and difficulty urination positive UA concerning for symptomatic UTI with urine culture currently growing Enterococcus which is sensitive to penicillin 2patient did have positive blood culture with staph epi more likely skin contamination as the patient has no clinical disease to go along with it. No need for vancomycin 3patient to continue with Unasyn while inpatient and will transition to oral Augmentin on discharge this was discussed with PRESS TENDER [employer] for admitting team Dictation was produced using [employer] dictation software. please excuse any grammatical, word or spelling errors. Time with Patient: Less than 30
--- NOTE | 2025-01-27 23:17 | P.PN ---
Subjective Progress Note Date: 01/27/25 79-year-old male was brought in because of concerns of altered mental status. Patient does have memory issues but yesterday as per the patient is more delirious, confused. Patient had a CT of the head which showed some chronic microvascular ischemic changes but these are new compared to CTA of the head that was done in 2018. Patient was started on antibiotics for UTI. Patient urine is abnormal but patient does not have any fever chills does not have any leukocytosis, will obtain a procalcitonin level. Patient does not have any dysuria or increased urinary frequency or urgency. Patient is incontinent. Patient denied any cough fever chills. Chest x-ray did not show any pneumonia. Patient serum creatinine is 1.4 which is actually better than his baseline. Patient's BUN is 40 patient does take aspirin and statin at home. 01/23/2025 Patient is evaluated today in follow up. Per at the bedside his mentation is significantly improved. Neurology consult not needed at this time and has been cancelled. Urine culture showing group D enteroccocus and also had positive blood cultures. ID was consulted. Patient transitioned to IV unasyn. He remains on normal saline at 75 mls/hr. He has been retaining urine and indwelling velarde catheter to be placed. He will be started on flomax as well. 01/24/2025 Patient evaluated in follow up. Mentation at baseline. Urine culture pending fin al microsensitivites. Blood culture likely contaminent species. Urinary catheter was placed for retention. states in [place] he had issues with retention requiring strait catheterization. States he has establish with Dr Monsalve and has been urinating without difficulty normally. He is on flomax. Renal function remains WNL. 01/25/2025 Patient evaluated today in follow up. Got confused overnight and removed his IDC. He now presents with gross hematuria. He was retaining urine and velarde has been replaced. Urine culture showing enterococcus. Blood culture final and showing contaminent species. 01/26/2025 Patient evaluated today in follow up. Indwelling catheter remains in place issues with irrigation overnight however better now and the urine is beginning to clear in color. Urology recommending to continue the velarde for one week post discharge and follow up in the office. Discharge held for significant weakness and likely will require BRENDON on discharge. 01/27/2025 Patient evaluated today. No acute complaints overnight. Continues with IDC and hematuria although slowly improving. Pending PT re-evaluation on Tuesday. Review of Systems Constitutional: Denied any fatigue denied any fever. Cardio vascular: denied any chest pain, palpitations Gastrointestinal: denied any nausea, vomiting, diarrhea Has retention Pulmonary: Denied any shortness of breath cough Neurologic denied any new focal deficits All inpatient medications were reviewed and appropriate changes in these medica tions as dictated in the interval history and assessment and plan. PHYSICAL EXAMINATION: GENERAL: The patient is alert and oriented x3, not in any acute distress. Well developed, well nourished. HEENT: Pupils are round and equally reacting to light. EOMI. No scleral icterus. No conjunctival pallor. Normocephalic, atraumatic. No pharyngeal erythema. No thyromegaly. CARDIOVASCULAR: S1 and S2 present. No murmurs, rubs, or gallops. PULMONARY: Chest is clear to auscultation, no wheezing or crackles. ABDOMEN: Soft, nontender, nondistended, normoactive bowel sounds. No palpable organomegaly. MUSCULOSKELETAL: No joint swelling or deformity. EXTREMITIES: No cyanosis, clubbing, or pedal edema. NEUROLOGICAL: Gross neurological examination did not reveal any focal deficits. SKIN: No rashes. Assessment and plan - Altered mental status from acute metabolic encephalopathy - UTI with sepsis and bacteremia - Urinary retention and hematuria from trauma - Generalized deconditioning: PT and OT evaluation - Chronic kidney disease stage IIIb/IV - Hypothyroidism - Hypertension DVT prophylaxis: Heparin subcutaneous Plan ID consultation Blood culture is a contaminent species. Antibiotics adjusted to IV unasyn with oral augment recommending on DC Continue flomax Reinsert indwelling velarde catheter Urology consult recommending to keep the IDC and follow up with Dr Monsalve in 1 week. Monitor electrolyes and renal function PT/OT to reevaluate tuesday and will need BRENDON on discharge The impression and plan of care has been dictated by Paige Sharp, Nurse Practitioner as directed. Dr. Adrienne MD I have performed a history and physical examination and medical decision making of this patient, discussed the same with the dictator, and agree with the dictators assessment and plan as written, documented as a scribe. Based on total visit time, I have performed more than 50% of this visit. Objective - Vital Signs Vital signs: Vital Signs Temp 98.2 F 01/27/25 19:47 Pulse 73 01/27/25 19:47 Resp 16 01/27/25 19:47 BP 164/60 01/27/25 19:47 Pulse Ox 96 01/27/25 19:47 FiO2 Intake & Output 01/27/25 01/27/25 01/28/25 06:59 18:59 06:59 Output Total 1100 500 Balance -1100 -500 Output: Urine 1100 500 Other: Voiding Method Indwelling Catheter Indwelling Catheter - Labs CBC & Chem 7: 01/26/25 05:41 01/26/25 05:41 Assessment and Plan Time with Patient: Less than 30
--- NOTE | 2025-01-28 08:03 | P.PN ---
Subjective Progress Note Date: 01/27/25 Principal diagnosis: Reason for follow-up is UTI and bacteremia Patient is a 80-year-old male with a past medical history significant for hypertension hyperlipidemia atrial fibrillation prostate disorder and heart failure patient has been brought into the hospital for evaluation of mental status changes patient has been diagnosed with a UTI blood cultures came back p ositive prompting this consultation. On today's evaluation that is 01/27/2025,the patient denies any fever or any chills, patient is breathing comfortably on room air, the patient denies chest pain shortness of breath and no significant cough, patient denies abdominal pain, no nausea vomiting or diarrhea. No new lab has been obtained today Objective - Vital Signs Vital signs: Vital Signs Temp 98.7 F 01/27/25 07:18 Pulse 72 01/27/25 07:18 Resp 17 01/27/25 07:18 BP 189/72 01/27/25 07:18 Pulse Ox 96 01/27/25 07:18 FiO2 Intake & Output 01/26/25 01/27/25 01/27/25 18:59 06:59 18:59 Output Total 1110 1100 Balance -1110 -1100 Output: Urine 1110 1100 Uretheral (Mueller) 1110 Other: Voiding Method Indwelling Catheter Indwelling Catheter Indwelling Catheter # Bowel Movements 2 - Exam GENERAL DESCRIPTION: An elderly male lying in bed in no distress RESPIRATORY SYSTEM: Unlabored breathing , decreased breath sounds at bases HEART: S1 S2 regular rate and rhythm , ABDOMEN: Soft , no tenderness EXTREMITIES: No edema feet - Labs CBC & Chem 7: 01/26/25 05:41 01/26/25 05:41 Labs: Microbiology - Last 24 Hours (Table) 01/23/25 10:28 Blood Culture - Preliminary Blood Assessment and Plan (1) Positive blood culture Current Visit: Yes Status: Acute Code(s): R78.81 - BACTEREMIA SNOMED Code(s): 561310327 (2) UTI (urinary tract infection) Current Visit: Yes Status: Acute Code(s): N39.0 - URINARY TRACT INFECTION, SITE NOT SPECIFIED SNOMED Code(s): 10683119 Plan: 1patient presented to hospital with weakness and lethargy mental status changes in this patient also have a urinary symptoms of burning and difficulty urination positive UA concerning for symptomatic UTI with urine culture currently growing Enterococcus which is sensitive to penicillin 2patient did have positive blood culture with staph epi more likely skin contamination as the patient has no clinical disease to go along with it. No need for vancomycin 3patient currently being treated with Unasyn while inpatient however plan to finish therapy with oral Augmentin once he is cleared for discharge by urology Dictation was produced using [email or web address] dictation software. please excuse any grammatical, word or spelling errors. Time with Patient: Less than 30
[2025-01-28 08:09] LABS: Blood Urea Nitrogen 16.3 mg/dL (9.0-27.0); Calcium 8.4 mg/dL (8.7-10.3); Carbon Dioxide 23.1 mmol/L (21.6-31.8); Chloride 110 mmol/L (96-109); Glucose 95 mg/dL (70-110); Potassium 3.9 mmol/L (3.5-5.5); Sodium 143 mmol/L (135-145)
--- NOTE | 2025-01-28 08:38 | P.PN ---
Subjective Progress Note Date: 01/28/25 Principal diagnosis: UTI, urinary retention The patient is an 80-year-old white male admitted with altered mental status due to an Enterococcus UTI. He has a history of urinary retention. He underwent a TURP in 2017 but continues to empty his bladder incompletely. 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 During this hospitalization, he has been found to have a postvoid residual of 630 cc, and a Mueller catheter was placed. He has experienced gross hematuria since the catheter was placed, requiring periodic catheter irrigation. He is comfortable this morning and has no complaints. Objective - Vital Signs Vital signs: Vital Signs Temp 98.5 F 01/28/25 07:16 Pulse 69 01/28/25 07:16 Resp 16 01/28/25 07:16 BP 177/69 01/28/25 07:16 Pulse Ox 95 01/28/25 07:16 FiO2 Intake & Output 01/27/25 01/28/25 01/28/25 18:59 06:59 18:59 Output Total 500 1700 Balance -500 -1700 Output: Urine 500 1700 Uretheral (Mueller) 250 Other: Voiding Method Indwelling Catheter Indwelling Catheter - Constitutional General appearance: Present: average body habitus, cooperative, no acute distress - Genitourinary Genitourinary Comment(s): Mueller catheter intact, draining urine which is slightly bloody without clots. - Psychiatric Psychiatric: Present: A&O x's 3 - Labs CBC & Chem 7: 01/26/25 05:41 01/28/25 05:22 Assessment and Plan (1) UTI (urinary tract infection) Current Visit: Yes Status: Acute Code(s): N39.0 - URINARY TRACT INFECTION, SITE NOT SPECIFIED SNOMED Code(s): 08990115 (2) Retention of urine, unspecified Current Visit: Yes Status: Acute Code(s): R33.9 - RETENTION OF URINE, UNSPECIFIED SNOMED Code(s): 269305579 Plan: Discharge home with Mueller catheter once hematuria has improved, no longer requiring catheter irrigation. Continue Unasyn for now, and patient should be discharged home on appropriate oral antibiotics. He will follow-up with Dr. Monsalve.
[2025-01-28 08:42] LABS: Basophils # (A) 0.06 X 10*3/uL (0.00-0.10); Basophils % (A) 0.6 %; Eosinophils # (A) 0.58 X 10*3/uL (0.04-0.35); Eosinophils % (A) 5.7 %; HCT 40.5 % (39.6-50.0); HGB 13.2 g/dL (13.0-17.0); Lymphocytes # (A) 1.17 X 10*3/uL (0.90-5.00); Lymphocytes % (A) 11.6 %; MCH 32.4 pg (27.0-32.0); MCHC 32.6 g/dL (32.0-37.0); MCV 99.5 FL (80.0-97.0); Mean Platelet Volume 12.7 FL (9.5-12.2); Monocytes # (A) 1.03 X 10*3/uL (0.20-1.00); Monocytes % (A) 10.2 %; NRBC Per 100 WBC 0 X 10*3/uL (0.00-0.01); Neutrophils # (A) 7.14 X 10*3/uL (1.80-7.70); Neutrophils % (A) 70.6 %; Platelet Count 174 X 10*3/uL (140-440); RBC 4.07 X 10*6/uL (4.40-5.60); RDW 13.6 % (11.5-14.5); WBC 10.11 X 10*3/uL (4.50-10.00)
[2025-01-28] MEDS: ARTIFICIAL TEARS-HYPROMELLOSE DROPS 15 ML BTL BOTH EYES PRN (12:30)
[2025-01-28] MEDS: OFLOXACIN 0.3% OPHTH DROPS 5 ML BOTTLE BOTH EYES PRN (12:30)
--- NOTE | 2025-01-28 22:18 | P.PN ---
Subjective Progress Note Date: 01/28/25 79-year-old male was brought in because of concerns of altered mental status. Patient does have memory issues but yesterday as per the patient is more delirious, confused. Patient had a CT of the head which showed some chronic microvascular ischemic changes but these are new compared to CTA of the head that was done in 2018. Patient was started on antibiotics for UTI. Patient urine is abnormal but patient does not have any fever chills does not have any leukocytosis, will obtain a procalcitonin level. Patient does not have any dysuria or increased urinary frequency or urgency. Patient is incontinent. Patient denied any cough fever chills. Chest x-ray did not show any pneumonia. Patient serum creatinine is 1.4 which is actually better than his baseline. Patient's BUN is 40 patient does take aspirin and statin at home. 01/23/2025 Patient is evaluated today in follow up. Per at the bedside his mentation is significantly improved. Neurology consult not needed at this time and has been cancelled. Urine culture showing group D enteroccocus and also had positive blood cultures. ID was consulted. Patient transitioned to IV unasyn. He remains on normal saline at 75 mls/hr. He has been retaining urine and indwelling velarde catheter to be placed. He will be started on flomax as well. 01/24/2025 Patient evaluated in follow up. Mentation at baseline. Urine culture pending fin al microsensitivites. Blood culture likely contaminent species. Urinary catheter was placed for retention. states in [place] he had issues with retention requiring strait catheterization. States he has establish with Dr Monsalve and has been urinating without difficulty normally. He is on flomax. Renal function remains WNL. 01/25/2025 Patient evaluated today in follow up. Got confused overnight and removed his IDC. He now presents with gross hematuria. He was retaining urine and velarde has been replaced. Urine culture showing enterococcus. Blood culture final and showing contaminent species. 01/26/2025 Patient evaluated today in follow up. Indwelling catheter remains in place issues with irrigation overnight however better now and the urine is beginning to clear in color. Urology recommending to continue the velarde for one week post discharge and follow up in the office. Discharge held for significant weakness and likely will require BRENDON on discharge. 01/27/2025 Patient evaluated today. No acute complaints overnight. Continues with IDC and hematuria although slowly improving. Pending PT re-evaluation on Tuesday. 01/28/2025 Patient evaluated sitting up in the chair. PT recommending [place]. IDC remains in place and slowly clearing up. Irrigate the velarde as needed. Continues on IV unasyn. Review of Systems Constitutional: Denied any fatigue denied any fever. Cardio vascular: denied any chest pain, palpitations Gastrointestinal: denied any nausea, vomiting, diarrhea Has retention Pulmonary: Denied any shortness of breath cough Neurologic denied any new focal deficits All inpatient medications were reviewed and appropriate changes in these medications as dictated in the interval history and assessment and plan. PHYSICAL EXAMINATION: GENERAL: The patient is alert and oriented x3, not in any acute distress. Well developed, well nourished. HEENT: Pupils are round and equally reacting to light. EOMI. No scleral icterus. No conjunctival pallor. Normocephalic, atraumatic. No pharyngeal erythema. No thyromegaly. CARDIOVASCULAR: S1 and S2 present. No murmurs, rubs, or gallops. PULMONARY: Chest is clear to auscultation, no wheezing or crackles. ABDOMEN: Soft, nontender, nondistended, normoactive bowel sounds. No palpable organomegaly. MUSCULOSKELETAL: No joint swelling or deformity. EXTREMITIES: No cyanosis, clubbing, or pedal edema. NEUROLOGICAL: Gross neurological examination did not reveal any focal deficits. SKIN: No rashes. Assessment and plan - Altered mental status from acute metabolic encephalopathy - UTI with sepsis and bacteremia - Urinary retention and hematuria from trauma - Generalized deconditioning: PT and OT evaluation - Chronic kidney disease stage IIIb/IV - Hypothyroidism - Hypertension DVT prophylaxis: Heparin subcutaneous Plan ID consultation Blood culture is a contaminent species. Antibiotics adjusted to IV unasyn with oral augment recommending on DC Continue flomax Reinsert indwelling velarde catheter Urology consult recommending to keep the IDC and follow up with Dr Monsalve in 1 week. Monitor electrolyes and renal function PT/OT to reevaluate tuesday and will need BRENDON on discharge and pending authorzation for DC to [facility] The impression and plan of care has been dictated by Paige Sharp Nurse Practitioner as directed. Dr. Adrienne MD I have performed a history and physical examination and medical decision making of this patient, discussed the same with the dictator, and agree with the dictators assessment and plan as written, documented as a scribe. Based on total visit time, I have performed more than 50% of this visit. Objective - Vital Signs Vital signs: Vital Signs Temp 98.4 F 01/28/25 19:35 Pulse 65 01/28/25 19:35 Resp 18 01/28/25 19:35 BP 159/97 01/28/25 19:35 Pulse Ox 96 01/28/25 19:35 FiO2 Intake & Output 01/28/25 01/28/25 01/29/25 06:59 18:59 06:59 Intake Total 118 Output Total 1700 750 Balance -1700 -632 Intake: Oral 118 Output: Urine 1700 750 Uretheral (Velarde) 250 100 Other: Voiding Method Indwelling Catheter Indwelling Catheter Indwelling Catheter - Labs CBC & Chem 7: 01/28/25 05:22 01/28/25 05:22 Labs: Abnormal Lab Results - Last 24 Hours (Table) 01/28/25 01/28/25 Range/Units 05:22 05:22 WBC 10.11 H (4.50-10.00) X 10*3/uL RBC 4.07 L (4.40-5.60) X 10*6/uL MCV 99.5 H (80.0-97.0) FL MCH 32.4 H (27.0-32.0) pg MPV 12.7 H (9.5-12.2) FL Immature Gran # 0.13 H (0.00-0.04) X 10*3/uL Monocytes # 1.03 H (0.20-1.00) X 10*3/uL Eosinophils # 0.58 H (0.04-0.35) X 10*3/uL Chloride 110 H (96-109) mmol/L Calcium 8.4 L (8.7-10.3) mg/dL Microbiology - Last 24 Hours (Table) 01/23/25 10:28 Blood Culture - Final Blood Assessment and Plan Time with Patient: Less than 30
[2025-01-29 07:15] VITALS: BMI 25.0
[2025-01-29 07:36] VITALS: RESP 16
--- NOTE | 2025-01-29 12:56 | P.PN ---
Subjective Progress Note Date: 01/29/25 Principal diagnosis: UTI, urinary retention The patient is an 80-year-old white male admitted with altered mental status due to an Enterococcus UTI. He has a history of urinary retention. He underwent a TURP in 2017 but continues to empty his bladder incompletely. 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 During this hospitalization, he has been found to have a postvoid residual of 630 cc, and a Mueller catheter was placed. As a result of catheter trauma, he has experienced gross hematuria since the catheter was placed. This required periodic catheter irrigation, but the urine has cleared somewhat and has not required irrigation in the past 24 hours. He is comfortable this morning and has no complaints. Objective - Vital Signs Vital signs: Vital Signs Temp 98.7 F 01/29/25 06:45 Pulse 65 01/29/25 06:45 Resp 16 01/29/25 06:45 BP 152/79 01/29/25 06:45 Pulse Ox 97 01/29/25 06:45 FiO2 Intake & Output 01/28/25 01/29/25 01/29/25 18:59 06:59 18:59 Intake Total 118 Output Total 750 1150 Balance -632 -1150 Weight 83.915 kg Intake: Oral 118 Output: Urine 750 1150 Uretheral (Mueller) 100 Other: Voiding Method Indwelling Catheter Indwelling Catheter - Constitutional General appearance: Present: average body habitus, cooperative, no acute distress - Psychiatric Psychiatric: Present: A&O x's 3 - Labs CBC & Chem 7: 01/28/25 05:22 01/28/25 05:22 Labs: Microbiology - Last 24 Hours (Table) 01/23/25 10:28 Blood Culture - Final Blood Assessment and Plan (1) UTI (urinary tract infection) Current Visit: Yes Status: Acute Code(s): N39.0 - URINARY TRACT INFECTION, SITE NOT SPECIFIED SNOMED Code(s): 04784698 (2) Retention of urine, unspecified Current Visit: Yes Status: Acute Code(s): R33.9 - RETENTION OF URINE, UNSPECIFIED SNOMED Code(s): 711708938 Plan: From a urologic standpoint, the patient may be transferred to [facility] with the Mueller catheter. He should be discharged on appropriate oral antibiotics and follow-up with Dr. Monsalve.
[2025-01-29 14:01] VITALS: BP 117/68; PULSE 66; TEMP 98.3
--- NOTE | 2025-01-29 15:05 | P.DS ---
Providers Date of admission: 01/22/25 00:18 Expected date of discharge: 01/29/25 Attending physician: Kyree Maldonado Consults: 01/23/25 10:22 Consult Physician Routine Consulting Provider: Alessandro Edwards Consult Reason/Comments: Bacteremia Do you want consulting provider notified?: Yes 01/24/25 13:28 Consult Physician Routine Consulting Provider: Rafael Monsalve Consult Reason/Comments: urinary retention Do you want consulting provider notified?: Yes 01/25/25 01:58 Consult Physician Routine Consulting Provider: Rafael Monsalve Consult Reason/Comments: possible urethra trauma, retention Do you want consulting provider notified?: Yes, Notify in am [facility] Course: Final diagnosis - Altered mental status from acute metabolic encephalopathy - UTI with sepsis and bacteremia with culture showing Enterococcus - Urinary retention and hematuria from trauma, patient will continue with indwelling Velarde catheter for 1 week per urology recommendations - Generalized deconditioning with generalized weakness and gait dysfunction - Chronic kidney disease stage IIIb/IV - Hypothyroidism - Hypertension GI prophylaxis DVT prophylaxis Full code Discharge disposition Patient is being discharged in a stable condition with guarded prognosis to [facility]. Patient will follow-up with Dr. Epps in the outpatient setting upon discharge. Patient is to continue with oral antibiotics and close outpatient follow-up with urology as scheduled. Patient is to continue with indwelling Velarde catheter until urology follow-up in [address] Monaslve. Total time taken is greater than 35 minutes. Hospital course This is a 79-year-old male who is brought in with altered mental status with memory issues and delirious and confused and closely monitored with multiple consultations. Patient was initiated on antibiotics with concerns of urinary tract infection as urine was abnormal although did not have any leukocytosis or fever. Urine culture finalized with Enterococcus facialis and also had positive blood cultures with infectious disease following. Blood cultures likely a contaminant as repeat blood cultures were negative. Patient was maintained on IV Unasyn and repeat blood cultures have been negative thus far. Patient will be transition to oral Augmentin on discharge per ID recommendations. Patient did have a urinary catheter placed for retention as reported previous history of retention requiring straight catheterizations. Patient was evaluated by urology maintained on Flomax and kidney functions within normal limits. Patient did have some increased confusion 1 night and pulled his catheter having gross hematuria. Patient evaluated by urology recommending indwelling Velarde catheter for 1 week with close outpatient follow- up. Patient will need follow-up with urology Dr. Monsalve in 1 to 2 weeks and to continue on Flomax daily along with antibiotics. Patient with significant weakness was evaluated by physical therapy recommending rehab and family is agreeable. [facility] has accepted and has received insurance authorization today. Patient will be discharged today. Please refer to other consultation notes for further HPI. Currently no reports of chest pain, shortness of breath, or palpitations. Patient is afebrile. No reports of nausea or vomiting and patient is tolerating diet. Patient will be going to [facility] today. Guarded prognosis Physical exam: Gen: This is a 80-year-old male who is awake, alert and oriented x 1-2, well- developed, elderly appearing HEENT: Head is atraumatic, normocephalic. Pupils equal, round. Sclerae is anicteric. NECK: Supple. No JVD. No lymphadenopathy. No thyromegaly. LUNGS: Diminished breath sounds bilaterally otherwise clear to auscultation. No wheezes or rhonchi. No intercostal retractions. HEART: S1, S2 are muffled ABDOMEN: Soft. Bowel sounds are present. No masses. No tenderness. EXTREMITIES: No pedal edema. No calf tenderness. NEUROLOGICAL: Patient is awake, alert and oriented x 1-2. Cranial nerves 2 through 12 are grossly intact. Diffusely weak Please refer to medication reconciliation sheet for a list of medications. The impression and plan of care has been dictated by Eva Ramirez, Nurse Practitioner as directed. Dr. Joel MD I have performed a history and examination and MDM of this patient, discussed the same with the dictator, and agree with the dictator's assessment and plan as written ,documented as a scribe. Based on total visit time, I have performed more than 50% of the visit. Patient Condition at Discharge: Stable Plan - Discharge Summary New Discharge Prescriptions: New Artificial Tears-Hypromellose [Artificial Tear Drops] 2 drops BOTH EYES QID PRN ml PRN Reason: Dry Eye(S) Acetaminophen Tab [Tylenol] 650 mg PO Q6HR PRN tab PRN Reason: Mild Pain Or Fever > 100.5 Amoxic-Pot Clav 875-125Mg [Augmentin 875-125] 1 tab PO BID 7 Days #14 tab Tamsulosin [Flomax] 0.4 mg PO PC-BRKFST cap Heparin Sodium,Porcine (1 ml) [Heparin Sodium] 5,000 unit SQ Q8HR each Ofloxacin 0.3% Ophth Soln [Ocuflox Ophth Soln] 1 drops BOTH EYES Q6HR PRN ml PRN Reason: Eye Irritation Continue Pravastatin Sodium [Pravachol] 20 mg PO HS Levothyroxine Sodium [Synthroid] 88 mcg PO AC-BRKFST allopurinoL [Zyloprim] 100 mg PO PC-BRKFST Aspirin [Adult Low Dose Aspirin EC] 81 mg PO HS Amlodipine Besylate/Valsartan [Exforge 5-160 MG] 1 tab PO PC-BRKFST hydrALAZINE HCL [Apresoline] 50 mg PO BID-W/MEALS Discontinued Tamsulosin [Flomax] 0.8 mg PO PC-BRKFST Furosemide [Lasix] 20 mg PO PC-BRKFST Discharge Medication List Aspirin [Adult Low Dose Aspirin EC] 81 mg PO HS 08/13/18 [History] Levothyroxine Sodium [Synthroid] 88 mcg PO AC-BRKFST 08/13/18 [History] Pravastatin Sodium [Pravachol] 20 mg PO HS 08/13/18 [History] allopurinoL [Zyloprim] 100 mg PO PC-BRKFST 08/13/18 [History] Amlodipine Besylate/Valsartan [Exforge 5-160 MG] 1 tab PO PC-BRKFST 02/29/20 [History] hydrALAZINE HCL [Apresoline] 50 mg PO BID-W/MEALS 01/21/25 [History] Amoxic-Pot Clav 875-125Mg [Augmentin 875-125] 1 tab PO BID 7 Days #14 tab 01/26/25 [Rx] Acetaminophen Tab [Tylenol] 650 mg PO Q6HR PRN tab 01/29/25 [Rx] Artificial Tears-Hypromellose [Artificial Tear Drops] 2 drops BOTH EYES QID PRN ml 01/29/25 [Rx] Heparin Sodium,Porcine (1 ml) [Heparin Sodium] 5,000 unit SQ Q8HR each 01/29/25 [Rx] Ofloxacin 0.3% Ophth Soln [Ocuflox Ophth Soln] 1 drops BOTH EYES Q6HR PRN ml 01/29/25 [Rx] Tamsulosin [Flomax] 0.4 mg PO PC-BRKFST cap 01/29/25 [Rx] Follow up Appointment(s)/Referral(s): Benigno Epps MD [Primary Care Provider] - [facility] - 1-2 Days Alessandro Edwards MD [STAFF PHYSICIAN] - 1 Week Rafael Monsalve MD [STAFF PHYSICIAN] - 1 Week Ambulatory/Diagnostic Orders: Basic Metabolic Panel [LAB.AMB] Location: None Selected Complete Blood Count w/diff [LAB.AMB] Time Frame: 3 Days, Location: None Selected Patient Instructions/Handouts: Urinary Tract Infection in Men (DC) Activity/Diet/Wound Care/Special Instructions: Keep velarde catheter in place on discharge - inserted 01-26-[address] Monsalve in 1 week Continue oral augmentin twice daily for the next 7 days Follow up with Dr Edwards in the office Repeat blood work in 3 to 4 days. Discharge Disposition: HOME WITH HOME HEALTH SERVICES
--- NOTE | 2025-01-29 15:09 | PN ---
PROGRESS NOTE DATE OF SERVICE: 01/29/2025 SUBJECTIVE: This 80-year-old gentleman was admitted with UTI and change in mental status, awaiting ECF rehab placement. No chest pain. No palpitation. OBJECTIVE: VITAL SIGNS: Pulse is 65, blood pressure 152/70, respirations 16. CHEST: Few scattered rhonchi. ABDOMEN: Soft. NERVOUS SYSTEM: Diffusely weak. LABORATORY DATA: Reviewed. ASSESSMENT: 1. Acute urinary tract infection with sepsis with bacteremia, present on admission. 2. Change in mental status, acute metabolic encephalopathy. 3. Urinary retention. 4. Hypertension. 5. Multiple complex medical issues. RECOMMENDATION: Recommend to continue current medication, continue symptomatic treatment. Otherwise, possible ECF rehab. PT, OT evaluation. Further recommendations to follow. MMODL / IJN: [id number] /
--- NOTE | 2025-01-29 15:18 | P.PN ---
Subjective Progress Note Date: 01/28/25 Principal diagnosis: Reason for follow-up is UTI and bacteremia Patient is a 80-year-old male with a past medical history significant for hypertension hyperlipidemia atrial fibrillation prostate disorder and heart failure patient has been brought into the hospital for evaluation of mental status changes patient has been diagnosed with a UTI blood cultures came back p ositive prompting this consultation. On today's evaluation that is 01/28/2025,the patient remains to be afebrile, patient is on room air not requiring supplemental oxygen and denies any shortness of breath no chest pain or cough.Patient denies having any nausea or vomiting, no abdominal pain and no diarrhea has been reported Patient did have white count 10.11 creatinine 1.0 Objective - Vital Signs Vital signs: Vital Signs Temp 98.5 F 01/28/25 07:16 Pulse 69 01/28/25 07:16 Resp 16 01/28/25 07:16 BP 177/69 01/28/25 07:16 Pulse Ox 95 01/28/25 07:16 FiO2 Intake & Output 01/27/25 01/28/25 01/28/25 18:59 06:59 18:59 Output Total 500 1700 Balance -500 -1700 Output: Urine 500 1700 Uretheral (Mueller) 250 Other: Voiding Method Indwelling Catheter Indwelling Catheter - Exam GENERAL DESCRIPTION: An elderly male lying in bed in no distress RESPIRATORY SYSTEM: Unlabored breathing , decreased breath sounds at bases HEART: S1 S2 regular rate and rhythm , ABDOMEN: Soft , no tenderness EXTREMITIES: No edema feet - Labs CBC & Chem 7: 01/28/25 05:22 01/28/25 05:22 Assessment and Plan (1) Positive blood culture Current Visit: Yes Status: Acute Code(s): R78.81 - BACTEREMIA SNOMED Code(s): 537350963 (2) UTI (urinary tract infection) Current Visit: Yes Status: Acute Code(s): N39.0 - URINARY TRACT INFECTION, SITE NOT SPECIFIED SNOMED Code(s): 76007535 Plan: 1patient presented to hospital with weakness and lethargy mental status changes in this patient also have a urinary symptoms of burning and difficulty urination positive UA concerning for symptomatic UTI with urine culture currently growing Enterococcus which is sensitive to penicillin 2patient did have positive blood culture with staph epi more likely skin contamination as the patient has no clinical disease to go along with it. No need for vancomycin 3patient will be treated with Unasyn while inpatient transition to oral antibiotics on discharge Dictation was produced using [employer] dictation software. please excuse any grammatical, word or spelling errors. Time with Patient: Less than 30
--- NOTE | 2025-01-29 15:18 | P.PN ---
Subjective Progress Note Date: 01/29/25 Principal diagnosis: Reason for follow-up is UTI and bacteremia Patient is a 80-year-old male with a past medical history significant for hypertension hyperlipidemia atrial fibrillation prostate disorder and heart failure patient has been brought into the hospital for evaluation of mental status changes patient has been diagnosed with a UTI blood cultures came back p ositive prompting this consultation. On today's evaluation that is 01/29/2025, the patient continues to be afebrile, the patient is on room air and breathing comfortably, the Pt denies having any chest pain or cough, the patient denies having any abdominal pain no vomiting or any diarrhea and urine is clearing out. Repeat blood culture has been negative urine with Enterococcus faecalis Objective - Vital Signs Vital signs: Vital Signs Temp 98.7 F 01/29/25 06:45 Pulse 65 01/29/25 06:45 Resp 16 01/29/25 06:45 BP 152/79 01/29/25 06:45 Pulse Ox 97 01/29/25 06:45 FiO2 Intake & Output 01/28/25 01/29/25 01/29/25 18:59 06:59 18:59 Intake Total 118 Output Total 750 1150 Balance -632 -1150 Weight 83.915 kg Intake: Oral 118 Output: Urine 750 1150 Uretheral (Mueller) 100 Other: Voiding Method Indwelling Catheter Indwelling Catheter - Exam GENERAL DESCRIPTION: An elderly male lying in bed in no distress RESPIRATORY SYSTEM: Unlabored breathing , decreased breath sounds at bases HEART: S1 S2 regular rate and rhythm , ABDOMEN: Soft , no tenderness EXTREMITIES: No edema feet - Labs CBC & Chem 7: 01/28/25 05:22 01/28/25 05:22 Labs: Microbiology - Last 24 Hours (Table) 01/23/25 10:28 Blood Culture - Final Blood Assessment and Plan (1) Positive blood culture Current Visit: Yes Status: Acute Code(s): R78.81 - BACTEREMIA SNOMED Code(s): 770432864 (2) UTI (urinary tract infection) Current Visit: Yes Status: Acute Code(s): N39.0 - URINARY TRACT INFECTION, SITE NOT SPECIFIED SNOMED Code(s): 43103979 Plan: 1patient presented to hospital with weakness and lethargy mental status changes in this patient also have a urinary symptoms of burning and difficulty urination positive UA concerning for symptomatic UTI with urine culture currently growing Enterococcus which is sensitive to penicillin 2patient did have positive blood culture with staph epi more likely skin contamination as the patient has no clinical disease to go along with it. No need for vancomycin 3patient has received adequate IV Unasyn short course of oral Augmentin on discharge Dictation was produced using [employer] dictation software. please excuse any grammatical, word or spelling errors.
[2025-01-29] MEDS ORDERED: AMOXIC-POT CLAV 875-125MG 1 EACH TAB PO SCH (21:00)
== END 2025-01-29 16:38 | disposition home health service (06) | DRG 871 ==
LOC: EC 19:23 → 6NMEDSUR 01-22 00:17 → OBSVTOIN 01-22 00:18 → 6NMEDSUR 01-22 05:56
PROVIDERS: ADMIT Hospitalist; ATTEND Hospitalist
PROC: 3C1ZX8Z Irrigation of Indwelling Device using Irrigating Substance, External Approach (ICD-10-PCS; principal; 2025-01-27)
DX: A41.81 Sepsis due to Enterococcus (principal); G93.41 Metabolic encephalopathy; I13.0 Hypertensive heart and chronic kidney disease with heart failure and stage 1 through stage 4 chronic kidney disease, or unspecified chronic kidney disease; I50.9 Heart failure, unspecified; E03.9 Hypothyroidism, unspecified; I48.91 Unspecified atrial fibrillation; G40.909 Epilepsy, unspecified, not intractable, without status epilepticus; I69.311 Memory deficit following cerebral infarction; N18.4 Chronic kidney disease, stage 4 (severe); F01.50 Vascular dementia, unspecified severity, without behavioral disturbance, psychotic disturbance, mood disturbance, and anxiety; N39.0 Urinary tract infection, site not specified; K52.9 Noninfective gastroenteritis and colitis, unspecified; R26.89 Other abnormalities of gait and mobility; T83.021A Displacement of indwelling urethral catheter, initial encounter; R31.0 Gross hematuria; N39.498 Other specified urinary incontinence; R39.14 Feeling of incomplete bladder emptying; M10.9 Gout, unspecified; N40.1 Benign prostatic hyperplasia with lower urinary tract symptoms; R33.8 Other retention of urine; E78.5 Hyperlipidemia, unspecified; Z79.899 Other long term (current) drug therapy; Z79.890 Hormone replacement therapy; Z79.82 Long term (current) use of aspirin
CPT/HCPCS: 36415; 51701; 70450; 71046; 74018; 80048; 80053; 80061; 81001; 82140; 83605; 83735; 84145; 85025; 87040; 87077; 87086; 87186; 87636; 93005; 96365; 96366; 99285

== ENCOUNTER 2025-02-28 00:12 | Emergency (ER) | payer MEDICARE ==
[2025-02-28 00:23] VITALS: TEMP 98.3
--- NOTE | 2025-02-28 00:24 | ED ---
General Adult HPI - General Chief complaint: Abdominal Pain Stated complaint: urogential Time Seen by Provider: 02/28/25 00:13 Source: patient, EMS, RN notes reviewed, old records reviewed Mode of arrival: EMS Limitations: no limitations - History of Present Illness Initial comments: 80-year-old male presenting for evaluation of suspected urinary retention. Patient had Mueller catheter pulled this morning and has not urinated since. He is having lower abdominal discomfort. No fever. No vomiting. Patient had apparently been treated for urinary tract infection. Indwelling Mueller catheter was maintained for about 3 weeks and was removed this morning. - Related Data Home Medications Medication Instructions Recorded Confirmed Aspirin [Adult Low Dose Aspirin EC] 81 mg PO HS 08/13/18 01/21/25 Levothyroxine Sodium [Synthroid] 88 mcg PO AC-BRKFST 08/13/18 01/21/25 Pravastatin Sodium [Pravachol] 20 mg PO HS 08/13/18 01/21/25 allopurinoL [Zyloprim] 100 mg PO PC-BRKFST 08/13/18 01/21/25 Amlodipine Besylate/Valsartan 1 tab PO PC-BRKFST 02/29/20 01/21/25 [Exforge 5-160 MG] hydrALAZINE HCL [Apresoline] 50 mg PO BID-W/MEALS 01/21/25 01/21/25 Previous Rx's Medication Instructions Recorded Amoxic-Pot Clav 875-125Mg 1 tab PO BID 7 Days #14 tab 01/26/25 [Augmentin 875-125] Acetaminophen Tab [Tylenol] 650 mg PO Q6HR PRN tab 01/29/25 Artificial Tears-Hypromellose 2 drops BOTH EYES QID PRN ml 01/29/25 [Artificial Tear Drops] Heparin Sodium,Porcine (1 ml) 5,000 unit SQ Q8HR each 01/29/25 [Heparin Sodium] Ofloxacin 0.3% Ophth Soln [Ocuflox 1 drops BOTH EYES Q6HR PRN ml 01/29/25 Ophth Soln] Tamsulosin [Flomax] 0.4 mg PO PC-BRKFST cap 01/29/25 Allergies Allergy/AdvReac Type Severity Reaction Status Date / Time No Known Allergies Allergy Verified 01/21/25 20:45 Review of Systems ROS Statement: Those systems with pertinent positive or pertinent negative responses have been documented in the HPI. ROS Other: All systems not noted in ROS Statement are negative. Past Medical History Past Medical History: Atrial Fibrillation, Cancer, Heart Failure, Hyperlipidemia, Hypertension, Prostate Disorder, Thyroid Disorder Additional Past Medical History / Comment(s): gout, pt states he believes he has a hx of afib, but not completely sure. He states he was told by his ca rdiologist in [place] about it, and is not on any medications anticoagulants for it that he knows of. skin ca with removal. History of Any Multi-Drug Resistant Organisms: None Reported Past Surgical History: Prostate Surgery Additional Past Surgical History / Comment(s): TURP 2017 in [place] for BPH, hernia repair Past Anesthesia/Blood Transfusion Reactions: No Reported Reaction Past Psychological History: No Psychological Hx Reported Smoking Status: Unknown if ever smoked Past Alcohol Use History: Occasional Past Drug Use History: None Reported - Past Family History Mother Family Medical History: Cancer Additional Family Medical History / Comment(s): Breast cancer Father Family Medical History: Cancer Sister(s) Family Medical History: Cancer General Exam Limitations: no limitations General appearance: alert, in no apparent distress Head exam: Present: atraumatic, normocephalic Eye exam: Present: normal appearance, PERRL Respiratory exam: Present: normal lung sounds bilaterally. Absent: respiratory distress, wheezes Cardiovascular Exam: Present: regular rate, normal rhythm GI/Abdominal exam: Present: soft, distended, tenderness Extremities exam: Present: normal inspection, normal capillary refill Neurological exam: Present: alert Psychiatric exam: Present: normal affect, normal mood Skin exam: Present: warm, dry, intact. Absent: cyanosis, diaphoretic Course Vital Signs 02/28/25 02/28/25 00:19 00:27 Temperature 98.3 F Pulse Rate 84 69 Respiratory 19 18 Rate Blood Pressure 161/75 130/65 O2 Sat by Pulse 97 96 Oximetry Medical Decision Making - Medical Decision Making Was pt. sent in by a medical professional or institution (, DAVID, TARIFF INSPECTOR, urgent care, hospital, or long term...) When possible be specific @ -No Did you speak to anyone other than the patient for history (EMS, parent, family, police, friend...)? What history was obtained from this source @ -No Did you review nursing and triage notes (agree or disagree)? Why? @ -I reviewed and agree with nursing and triage notes Were old charts reviewed (outside hosp., previous admission, EMS record, old EKG, old radiological studies, urgent care reports/EKG's, long term records)? Report findings @ -No old charts were reviewed Differential Abdominal Pain Men: Appendicitis, cholecystitis, diverticulosis, ischemic bowel, pancreatitis, hepatitis, UTI, gastroenteritis, AAA, incarcerated hernia, bowel obstruction, constipation, inflammatory bowel, hepatitis, peptic ulcer disease, splenic infarction, perforated viscus, testicular torsion, this is not meant to be an all-inclusive list EKG interpreted by me (3pts min.). @ -As above X-rays interpreted by me (1pt min.). @ -None done CT interpreted by me (1pt min.). @ -None done U/S interpreted by me (1pt. min.). @ -None done What testing was considered but not performed or refused? (CT, X-rays, U/S, la bs)? Why? @ -None What meds were considered but not given or refused? Why? @ -None Did you discuss the management of the patient with other professionals (professionals i.e. , PA, TARIFF INSPECTOR, lab, RT, psych nurse, dialysis social worker, production drilling machine operator, teacher, chief scientific officer, rn case manager hospice)? Give summary @ -No Was smoking cessation discussed for >3mins.? @ -No Was critical care preformed (if so, how long)? @ -No Were there social determinants of health that impacted care today? How? (Homelessness, low income, unemployed, alcoholism, drug addiction, transportation, low edu. Level, literacy, decrease access to med. care, residential, rehab)? @ -No Was there de-escalation of care discussed even if they declined (Discuss DNR or withdrawal of care, Hospice)? DNR status @ -No What co-morbidities impacted this encounter? (DM, HTN, Smoking, COPD, CAD, Cancer, CVA, ARF, Chemo, Hep., AIDS, mental health diagnosis, sleep apnea, morbid obesity)? @ -None Was patient admitted / discharged? Hospital course, mention meds given and route, prescriptions, significant lab abnormalities, going to OR and other pertinent info. @ -Patient with urinary retention after Mueller removed. Mueller is replaced in the emergency department with complete resolution in symptoms. Patient will again follow-up with urology. Undiagnosed new problem with uncertain prognosis? @ -No Drug Therapy requiring intensive monitoring for toxicity (Heparin, Nitro, Insulin, Cardizem)? @ -No Were any procedures done? @ -No Diagnosis/symptom? @ -[Urinary retention Acute, or Chronic, or Acute on Chronic? @ -Acute Uncomplicated (without systemic symptoms) or Complicated (systemic symptoms)? @ -[default Side effects of treatment? @ -No Exacerbation, Progression, or Severe Exacerbation? @ -No Poses a threat to life or bodily function? How? (Chest pain, [place], [place], pneumonia, PE, COPD, DKA, ARF, appy, cholecystitis, CVA, Diverticulitis, Homicidal, Suicidal, threat to staff... and all critical care pts) @ -No - Lab Data Lab Results 02/28/25 Range/Units 00:26 Urine Color Colorless Urine Appearance Clear (Clear) Urine pH 5.5 (5.0-8.0) Ur Specific [place] 1.004 (1.001-1.035) Urine Protein Trace H (Negative) Urine Glucose (UA) Negative (Negative) Urine Ketones Negative (Negative) Urine Blood Moderate H (Negative) Urine Nitrite Negative (Negative) Urine Bilirubin Negative (Negative) Urine Urobilinogen <2.0 (<2.0) mg/dL Ur Leukocyte Esterase Moderate H (Negative) Urine RBC 13 H (0-5) /hpf Urine WBC 7 H (0-5) /hpf Urine Bacteria Rare H (None) /hpf Hyaline Casts 1 (0-2) /lpf Urine Mucus Rare H (None) /hpf Urine Yeast (Budding) Rare H (None) /hpf Disposition Clinical Impression: Retention of urine, unspecified Disposition: HOME SELF-CARE Condition: Fair Instructions (If sedation given, give patient instructions): Urinary Retention in Men (ED) Is patient prescribed a controlled substance at d/c from ED?: No Referrals: Benigno Epps MD [Primary Care Provider] - 1-2 days Rafael Monsalve MD [STAFF PHYSICIAN] - 1-2 days Time of Disposition: 01:14
[2025-02-28 01:09] LABS: Appearance,Urine Clear (Clear); Bacteria,Urine Rare /hpf; Bilirubin,Urine Negative (Negative); Blood,Urine Moderate (Negative); Budding Yeast,Urine Rare /hpf; Color,Urine Colorless; Glucose,Urine (UA) Negative (Negative); Hyaline Casts,Urine 1 /lpf (0-2); Ketones,Urine Negative (Negative); Leukocyte Esterase,Urine Moderate (Negative); Mucus,Urine Rare /hpf; Nitrite,Urine Negative (Negative); PH, Urine 5.5 (5.0-8.0); Protein,Urine Trace (Negative); RBC,Urine 13 /hpf (0-5); Specific Gravity,Urine 1.004 (1.001-1.035); Urobilinogen,Urine <2.0 mg/dL (<2.0); WBC,Urine 7 /hpf (0-5)
[2025-02-28 01:50] VITALS: BP 129/62; PULSE 77; RESP 14
== END 2025-02-28 01:50 | disposition home or self-care (01) ==
LOC: EC 00:12
DX: R33.9 Retention of urine, unspecified (principal); Z90.79 Acquired absence of other genital organ(s)
CPT/HCPCS: 51702; 51798; 81001; 99284

== ENCOUNTER 2025-03-09 21:13 | Emergency (ER) | payer MEDICARE ==
[2025-03-09 21:19] VITALS: BP 98/60; PULSE 82; RESP 18; TEMP 98.1
--- NOTE | 2025-03-09 21:37 | ED ---
Male Urogenital HPI - General Chief complaint: Urogenital Stated complaint: urogenital Time Seen by Provider: 03/09/25 21:36 Source: patient, RN notes reviewed Mode of arrival: wheelchair Limitations: no limitations - History of Present Illness Initial comments: This is an 80-year-old male who presents to the emergency department for problems with his Mueller catheter. Patient has a Mueller catheter in place and states that the bag accidentally became disconnected and he just needs to have this fixed. Denies any other concerns or complaints. - Related Data Home Medications Medication Instructions Recorded Confirmed Aspirin [Adult Low Dose Aspirin EC] 81 mg PO HS 08/13/18 01/21/25 Levothyroxine Sodium [Synthroid] 88 mcg PO AC-BRKFST 08/13/18 01/21/25 Pravastatin Sodium [Pravachol] 20 mg PO HS 08/13/18 01/21/25 allopurinoL [Zyloprim] 100 mg PO PC-BRKFST 08/13/18 01/21/25 Amlodipine Besylate/Valsartan 1 tab PO PC-BRKFST 02/29/20 01/21/25 [Exforge 5-160 MG] hydrALAZINE HCL [Apresoline] 50 mg PO BID-W/MEALS 01/21/25 01/21/25 Previous Rx's Medication Instructions Recorded Amoxic-Pot Clav 875-125Mg 1 tab PO BID 7 Days #14 tab 01/26/25 [Augmentin 875-125] Acetaminophen Tab [Tylenol] 650 mg PO Q6HR PRN tab 01/29/25 Artificial Tears-Hypromellose 2 drops BOTH EYES QID PRN ml 01/29/25 [Artificial Tear Drops] Heparin Sodium,Porcine (1 ml) 5,000 unit SQ Q8HR each 01/29/25 [Heparin Sodium] Ofloxacin 0.3% Ophth Soln [Ocuflox 1 drops BOTH EYES Q6HR PRN ml 01/29/25 Ophth Soln] Tamsulosin [Flomax] 0.4 mg PO PC-BRKFST cap 01/29/25 Allergies Allergy/AdvReac Type Severity Reaction Status Date / Time No Known Allergies Allergy Verified 03/09/25 21:15 Review of Systems ROS Statement: Those systems with pertinent positive or pertinent negative responses have been documented in the HPI. ROS Other: All systems not noted in ROS Statement are negative. Past Medical History Past Medical History: Atrial Fibrillation, Cancer, Heart Failure, Hyperlipidemia, Hypertension, Prostate Disorder, Thyroid Disorder Additional Past Medical History / Comment(s): gout, pt states he believes he has a hx of afib, but not completely sure. He states he was told by his last putter away in [place] about it, and is not on any medications anticoagulants for it that he knows of. skin ca with removal. History of Any Multi-Drug Resistant Organisms: None Reported Past Surgical History: Prostate Surgery Additional Past Surgical History / Comment(s): TURP 2017 in [place] for BPH, hernia repair Past Anesthesia/Blood Transfusion Reactions: No Reported Reaction Past Psychological History: No Psychological Hx Reported Smoking Status: Unknown if ever smoked Past Alcohol Use History: Occasional Past Drug Use History: None Reported - Past Family History Mother Family Medical History: Cancer Additional Family Medical History / Comment(s): Breast cancer Father Family Medical History: Cancer Sister(s) Family Medical History: Cancer General Exam Limitations: no limitations General appearance: alert, in no apparent distress Head exam: Present: atraumatic, normocephalic, normal inspection Respiratory exam: Present: normal lung sounds bilaterally. Absent: respiratory distress, wheezes, rales, rhonchi, stridor Cardiovascular Exam: Present: regular rate, normal rhythm GI/Abdominal exam: Present: soft. Absent: distended, tenderness Neurological exam: Present: alert, oriented X3, CN II-XII intact Psychiatric exam: Present: normal affect, normal mood Skin exam: Present: warm, dry, intact, normal color. Absent: rash Course Vital Signs 03/09/25 21:15 Temperature 98.1 F Pulse Rate 82 Respiratory 18 Rate Blood Pressure 98/60 O2 Sat by Pulse 98 Oximetry Medical Decision Making - Medical Decision Making This is an 80 year old male who presents to the emergency department for problems with his Mueller catheter bag. Was pt. sent in by a medical professional or institution? @ -No Did you speak to anyone other than the patient for history? @ -No Did you review nursing and triage notes? @ -Yes, and I agree, it is accurate with regards to the patient's symptoms. Were old charts reviewed? @ -No Differential Diagnosis? @ -Urine bag disconnection, blood clot, malposition, UTI, this is not meant to be an all-inclusive list. EKG interpreted by me (3pts min.)? @ -Not obtained X-rays interpreted by me (1pt min.)? @ -Not obtained CT interpreted by me (1pt min.)? @ -Not obtained U/S interpreted by me (1pt. min.)? @ -Not obtained What testing was considered but not performed? (CT, X-rays, U/S, labs)? Why? @ -None What meds were considered but not given? Why? @ -None Did you discuss the management of the patient with other professionals? @ -No Did you reconcile home meds? @ -No Was smoking cessation discussed for >3mins.? @ -No Was critical care preformed (if so, how long)? @ -No Were there social determinants of health that impacted care today? How? (Homelessness, low income, unemployed, alcoholism, drug addiction, transportation, low edu. Level, literacy, decrease access to med. care, fci, rehab)? @ -No Was there de-escalation of care discussed even if they declined? (Discuss DNR or withdrawal of care, Hospice)? @ -No What co-morbidities impacted this encounter? (DM, HTN, Smoking, COPD, CAD, Cancer, CVA, Hep., AIDS, mental health diagnosis, sleep apnea, morbid obesity)? @ -Urine retention Was patient admitted / discharged? @ -Discharged. Patient's only complaint was that his urine bag on the Mueller catheter had become disconnected and he just needed to have it replaced. This was performed by nursing staff and patient was discharged home in stable condition. Case discussed with ED attending Dr. Forte. Return precautions reviewed in depth, the patient is instructed to return to the emergency department with any new, worsening, or concerning symptoms. Patient verbalized understanding. Undiagnosed new problem with uncertain prognosis? @ -None Drug Therapy requiring intensive monitoring for toxicity (Heparin, Nitro, Insulin, Cardizem)? @ -None Were any procedures done? @ -None Diagnosis/symptom? @ -Mueller catheter problem Acute, or Chronic, or Acute on Chronic? @ -Acute Uncomplicated (without systemic symptoms) or Complicated (systemic symptoms)? @ -Uncomplicated Side effects of treatment? @ -None Exacerbation, Progression, or Severe Exacerbation] @ -Not applicable Poses a threat to life or bodily function? @ -No Disposition Clinical Impression: Mueller catheter problem Disposition: HOME SELF-CARE Instructions (If sedation given, give patient instructions): Mueller Catheter Placement and Care (ED) Additional Instructions: Return to the emergency department with any new, worsening, or concerning symptoms. Follow up with your primary care provider in 1-2 days. Is patient prescribed a controlled substance at d/c from ED?: No Referrals: Benigno Epps MD [Primary Care Provider] - 1-2 days Time of Disposition: 21:37
== END 2025-03-09 21:51 | disposition home or self-care (01) ==
LOC: EC 21:13
DX: Z46.6 Encounter for fitting and adjustment of urinary device (principal)
CPT/HCPCS: 51702; 99283

== ENCOUNTER 2025-03-23 10:18 | Inpatient (IN) | payer MEDICARE ==
--- NOTE | 2025-03-23 11:06 | ED ---
Weakness HPI - General Chief complaint: Weakness Stated complaint: Weakness Time Seen by Provider: 03/23/25 10:36 Source: patient, RN notes reviewed Mode of arrival: EMS Limitations: no limitations - History of Present Illness Initial comments: This is an 80-year-old male who presents to the emergency department for generalized weakness. His daughter states that this morning she found him on the floor in his bedroom and he was unable to get up on his own. He did not fall or sustain any injuries, states that he is just too weak. He had a Mueller catheter removed 2 days ago. He was able to urinate afterwards. However, states that he has not urinated since last night. Denies any pain or pressure in his abdomen. Other than feeling weak he denies any complaints such as chest pain or shortness of breath. His daughter does note that he had some diarrhea, but is not sure the extent of this. MD Complaint: generalized weakness - Related Data Home Medications Medication Instructions Recorded Confirmed Aspirin [Adult Low Dose Aspirin EC] 81 mg PO HS 08/13/18 03/23/25 Levothyroxine Sodium [Synthroid] 88 mcg PO AC-BRKFST 08/13/18 03/23/25 Pravastatin Sodium [Pravachol] 20 mg PO HS 08/13/18 03/23/25 allopurinoL [Zyloprim] 100 mg PO DAILY 08/13/18 03/23/25 Amlodipine Besylate/Valsartan 1 tab PO DAILY 02/29/20 03/23/25 [Exforge 5-160 MG] hydrALAZINE HCL [Apresoline] 50 mg PO BID-W/MEALS 01/21/25 03/23/25 Tamsulosin [Flomax] 0.4 mg PO BID 03/23/25 03/23/25 Allergies Allergy/AdvReac Type Severity Reaction Status Date / Time No Known Allergies Allergy Verified 03/23/25 14:32 Review of Systems ROS Statement: Those systems with pertinent positive or pertinent negative responses have been documented in the HPI. ROS Other: All systems not noted in ROS Statement are negative. Past Medical History Past Medical History: Atrial Fibrillation, Cancer, Heart Failure, Hyperlipidemia, Hypertension, Prostate Disorder, Thyroid Disorder Additional Past Medical History / Comment(s): gout, pt states he believes he has a hx of afib, but not completely sure. He states he was told by his bottom brusher in [place] about it, and is not on any medications anticoagulants for it that he knows of. skin ca with removal. History of Any Multi-Drug Resistant Organisms: None Reported Past Surgical History: Prostate Surgery Additional Past Surgical History / Comment(s): TURP 2017 in [place] for BPH, hernia repair Past Anesthesia/Blood Transfusion Reactions: No Reported Reaction Past Psychological History: No Psychological Hx Reported Smoking Status: Unknown if ever smoked Past Alcohol Use History: Occasional Past Drug Use History: None Reported - Past Family History Mother Family Medical History: Cancer Additional Family Medical History / Comment(s): Breast cancer Father Family Medical History: Cancer Sister(s) Family Medical History: Cancer General Exam Limitations: no limitations General appearance: alert, in no apparent distress Head exam: Present: atraumatic, normocephalic, normal inspection Respiratory exam: Present: normal lung sounds bilaterally. Absent: respiratory distress, wheezes, rales, rhonchi, stridor Cardiovascular Exam: Present: regular rate, normal rhythm GI/Abdominal exam: Present: soft. Absent: distended, tenderness Neurological exam: Present: alert, oriented X3, CN II-XII intact Psychiatric exam: Present: normal affect, normal mood Skin exam: Present: warm, dry, intact, normal color. Absent: rash Course Vital Signs 03/23/25 03/23/25 03/23/25 10:32 12:24 13:06 Temperature 97.8 F 97.6 F 97 F L Pulse Rate 86 75 Respiratory 22 16 Rate Blood Pressure 92/51 110/74 O2 Sat by Pulse 99 97 Oximetry 03/23/25 03/23/25 03/23/25 15:19 16:23 17:45 Temperature 97.5 F L 98.0 F Pulse Rate 68 75 66 Respiratory 16 16 16 Rate Blood Pressure 115/95 107/57 108/49 O2 Sat by Pulse 97 95 97 Oximetry Medical Decision Making - Medical Decision Making This is an 80 year old male who presents to the emergency department for weakness. Was pt. sent in by a medical professional or institution? @ -No Did you speak to anyone other than the patient for history? @ -His daughter provided the majority of the history. Did you review nursing and triage notes? @ -Yes, and I agree, it is accurate with regards to the patient's symptoms. Were old charts reviewed? @ -No Differential Diagnosis? @ -Differential Weakness: Hypoglycemia, shock, sepsis, hyponatremia, anemia, infection, [place], ETOH, adverse medicine reaction, overdose, stroke, this is not meant to be an all-inclusive list. EKG interpreted by me (3pts min.)? @ -EKG interpreted by me demonstrating the following: Atrial fibrillation. Ventricular rate 82 bpm, QRS duration 146 ms, QTc 432 ms. X-rays interpreted by me (1pt min.)? @ -Chest x-ray obtained, my interpretation identifies no localized consolidations or infiltrates. CT interpreted by me (1pt min.)? @ -Not obtained U/S interpreted by me (1pt. min.)? @ -Not obtained What testing was considered but not performed? (CT, X-rays, U/S, labs)? Why? @ -None What meds were considered but not given? Why? @ -None Did you discuss the management of the patient with other professionals? @ -Yes, Dr. Vaz, who accepts the patient for admission. Did you reconcile home meds? @ -Yes Was smoking cessation discussed for >3mins.? @ -No Was critical care preformed (if so, how long)? @ -No Were there social determinants of health that impacted care today? How? (Homelessness, low income, unemployed, alcoholism, drug addiction, transportation, low edu. Level, literacy, decrease access to med. care, fci, rehab)? @ -No Was there de-escalation of care discussed even if they declined? (Discuss DNR or withdrawal of care, Hospice)? @ -No What co-morbidities impacted this encounter? (DM, HTN, Smoking, COPD, CAD, Cancer, CVA, Hep., AIDS, mental health diagnosis, sleep apnea, morbid obesity)? @ -A-fib, CHF, prostate disorder Was patient admitted / discharged? @ -Admitted. Lab work demonstrates leukocytosis with a white blood cell count of 26.4. He also has an AROLDO with a creatinine of 2.96 and eGFR of 19. Bladder scan performed demonstrating greater than 1000 mL of urine. Mueller catheter initiated. Urinalysis consistent with infection and urine was sent for culture. While he did not initially meet sepsis criteria, in anticipation of this because of the extent of the leukocytosis, he was given 2.5 L of LR based on IBW of 78kg. He does report a history of CHF and his BNP was 6190. Chest x-ray was unremarkable and not suggestive of fluid overload. Patient denies any shortness of breath. However, due to a history of CHF, will leave decision of maintenance fluids up to primary medical team. Additionally, in order to give him the antibiotic within 3 hours, he was first given 1g of IM ceftriaxone. After the blood culture was obtained he was then given an additional 1 g of IVP ceftriaxone. Patient admitted to medicine for UTI, AROLDO, and weakness. ID consulted per medical team request. Case discussed with ED attending Dr. Mazariegos. Undiagnosed new problem with uncertain prognosis? @ -None Drug Therapy requiring intensive monitoring for toxicity (Heparin, Nitro, Insulin, Cardizem)? @ -None Were any procedures done? @ -None Diagnosis/symptom? @ -UTI, AROLDO, weakness Acute, or Chronic, or Acute on Chronic? @ -Acute Uncomplicated (without systemic symptoms) or Complicated (systemic symptoms)? @ -Complicated Side effects of treatment? @ -None Exacerbation, Progression, or Severe Exacerbation] @ -Not applicable Poses a threat to life or bodily function? @ -Yes, can lead to septic shock and - Lab Data Result diagrams: 03/23/25 12:26 03/24/25 07:49 Lab Results 03/23/25 03/23/25 03/23/25 Range/Units 12:26 12:26 12:26 WBC 26.40 H (4.50-10.00) 10*3/uL RBC 4.28 L (4.40-5.60) 10*6/uL Hgb 13.7 (13.0-17.0) g/dL Hct 40.8 (39.6-50.0) % MCV 95.3 (80.0-97.0) fL MCH 32.0 (27.0-32.0) pg MCHC 33.6 (32.0-37.0) g/dL Plt Count 161 (140-440) 10*3/uL MPV 12.3 H (9.5-12.2) fL Immature Gran % (Auto) 1.9 % Neutrophils % 92.7 % Lymphocytes % 0.8 % Monocytes % 4.4 % Eosinophils % 0.0 % Basophils % 0.2 % Immature Gran # 0.49 H (0.00-0.04) 10*3/uL Neutrophils # 24.49 H (1.80-7.70) 10*3/uL Lymphocytes # 0.20 L (0.90-5.00) 10*3/uL Monocytes # 1.17 H (0.20-1.00) 10*3/uL Eosinophils # 0.00 L (0.04-0.35) 10*3/uL Basophils # 0.05 (0.00-0.10) 10*3/uL Manual Slide Review Performed PT 11.1 (10.0-12.5) sec INR 1.0 (<1.2) APTT 20.3 L (22.0-30.0) sec Sodium 140 (137-145) mmol/L Potassium 4.2 (3.5-5.1) mmol/L Chloride 111 H (98-107) mmol/L Carbon Dioxide 15 L (22-30) mmol/L Anion Gap 14 mmol/L BUN 64 H (9-20) mg/dL Creatinine 2.96 H (0.66-1.25) mg/dL Est GFR (CKD-EPI)AfAm 22 (>60 ml/min/1.73 sqM) Est GFR (CKD-EPI)NonAf 19 (>60 ml/min/1.73 sqM) Glucose 120 H (74-99) mg/dL Plasma Lactic Acid Corwin (0.7-2.0) mmol/L Calcium 9.1 (8.4-10.2) mg/dL Magnesium 1.8 (1.6-2.3) mg/dL Total Bilirubin 1.1 (0.2-1.3) mg/dL AST 27 (17-59) U/L ALT 14 (4-49) U/L Alkaline Phosphatase 107 (38-126) U/L Creatine Kinase 191 H (55-170) U/L NT-Pro-B Natriuret Pep pg/mL Total Protein 5.8 L (6.3-8.2) g/dL Albumin 3.1 L (3.5-5.0) g/dL Urine Color Urine Appearance (Clear) Urine pH (5.0-8.0) Ur Specific Isabella (1.001-1.035) Urine Protein (Negative) Urine Glucose (UA) (Negative) Urine Ketones (Negative) Urine Blood (Negative) Urine Nitrite (Negative) Urine Bilirubin (Negative) Urine Urobilinogen (<2.0) mg/dL Ur Leukocyte Esterase (Negative) Urine RBC (0-5) /hpf Urine WBC (0-5) /hpf Urine Bacteria (None) /hpf Urine Mucus (None) /hpf 03/23/25 03/23/25 03/23/25 Range/Units 12:26 12:26 14:17 WBC (4.50-10.00) 10*3/uL RBC (4.40-5.60) 10*6/uL Hgb (13.0-17.0) g/dL Hct (39.6-50.0) % MCV (80.0-97.0) fL MCH (27.0-32.0) pg MCHC (32.0-37.0) g/dL Plt Count (140-440) 10*3/uL MPV (9.5-12.2) fL Immature Gran % (Auto) % Neutrophils % % Lymphocytes % % Monocytes % % Eosinophils % % Basophils % % Immature Gran # (0.00-0.04) 10*3/uL Neutrophils # (1.80-7.70) 10*3/uL Lymphocytes # (0.90-5.00) 10*3/uL Monocytes # (0.20-1.00) 10*3/uL Eosinophils # (0.04-0.35) 10*3/uL Basophils # (0.00-0.10) 10*3/uL Manual Slide Review PT (10.0-12.5) sec INR (<1.2) APTT (22.0-30.0) sec Sodium (137-145) mmol/L Potassium (3.5-5.1) mmol/L Chloride (98-107) mmol/L Carbon Dioxide (22-30) mmol/L Anion Gap mmol/L BUN (9-20) mg/dL Creatinine (0.66-1.25) mg/dL Est GFR (CKD-EPI)AfAm (>60 ml/min/1.73 sqM) Est GFR (CKD-EPI)NonAf (>60 ml/min/1.73 sqM) Glucose (74-99) mg/dL Plasma Lactic Acid Corwin 1.8 (0.7-2.0) mmol/L Calcium (8.4-10.2) mg/dL Magnesium (1.6-2.3) mg/dL Total Bilirubin (0.2-1.3) mg/dL AST (17-59) U/L ALT (4-49) U/L Alkaline Phosphatase (38-126) U/L Creatine Kinase (55-170) U/L NT-Pro-B Natriuret Pep 6190 pg/mL Total Protein (6.3-8.2) g/dL Albumin (3.5-5.0) g/dL Urine Color Yellow Urine Appearance Turbid (Clear) Urine pH 6.5 (5.0-8.0) Ur Specific Isabella 1.018 (1.001-1.035) Urine Protein 1+ H (Negative) Urine Glucose (UA) Negative (Negative) Urine Ketones Negative (Negative) Urine Blood Moderate H (Negative) Urine Nitrite Negative (Negative) Urine Bilirubin Negative (Negative) Urine Urobilinogen <2.0 (<2.0) mg/dL Ur Leukocyte Esterase Large H (Negative) Urine RBC 27 H (0-5) /hpf Urine WBC >182 H (0-5) /hpf Urine Bacteria Many H (None) /hpf Urine Mucus Few H (None) /hpf - Radiology Data Radiology results: report reviewed, image reviewed Disposition Clinical Impression: UTI (urinary tract infection), AROLDO (acute kidney injury), Weakness Disposition: ADMITTED IP TO THIS HOSP
[2025-03-23 12:47] LABS: ALT 14 U/L (4-49); African American GFR (CKD) 22 (>60 ml/min/1.73 sqM); Albumin 3.1 g/dL (3.5-5.0); Anion Gap 14 mmol/L; Blood Urea Nitrogen 64 mg/dL (9-20); Calcium 9.1 mg/dL (8.4-10.2); Carbon Dioxide 15 mmol/L (22-30); Chloride 111 mmol/L (98-107); Creatine Kinase 191 U/L (55-170); Glucose 120 mg/dL (74-99); Non-African American GFR(CKD) 19 (>60 ml/min/1.73 sqM); Sodium 140 mmol/L (137-145); Total Protein 5.8 g/dL (6.3-8.2)
[2025-03-23 12:58] LABS: Basophils # (A) 0.05 10*3/uL (0.00-0.10); Basophils % (A) 0.2 %; Eosinophils # (A) 0.00 10*3/uL (0.04-0.35); Eosinophils % (A) 0.0 %; HCT 40.8 % (39.6-50.0); HGB 13.7 g/dL (13.0-17.0); Lymphocytes # (A) 0.20 10*3/uL (0.90-5.00); Lymphocytes % (A) 0.8 %; MCH 32.0 pg (27.0-32.0); MCHC 33.6 g/dL (32.0-37.0); MCV 95.3 fL (80.0-97.0); Monocytes # (A) 1.17 10*3/uL (0.20-1.00); Monocytes % (A) 4.4 %; Neutrophils # (A) 24.49 10*3/uL (1.80-7.70); Neutrophils % (A) 92.7 %; Platelet Count 161 10*3/uL (140-440); RBC 4.28 10*6/uL (4.40-5.60); RDW 14.2 % (11.5-14.5); WBC 26.40 10*3/uL (4.50-10.00)
[2025-03-23 13:03] LABS: INR 1.0 (<1.2); Partial Thromboplastin Time 20.3 sec (22.0-30.0); Prothrombin Time 11.1 sec (10.0-12.5)
[2025-03-23 13:12] LABS: AST 27 U/L (17-59); Alkaline Phosphatase 107 U/L (38-126); Magnesium 1.8 mg/dL (1.6-2.3); Potassium 4.2 mmol/L (3.5-5.1)
[2025-03-23] MEDS: cefTRIAXone 1,000 MG VIAL (IM USE) IM STA (13:14)
[2025-03-23] MEDS: SODIUM CHLORIDE 0.9% 1,000 ML IV ONE (14:02)
[2025-03-23] MEDS: LACTATED RINGERS 1,000 ML IV SCH (14:15)
[2025-03-23 14:35] LABS: Bilirubin,Urine Negative (Negative); Blood,Urine Moderate (Negative); Color,Urine Yellow; Glucose,Urine (UA) Negative (Negative); Ketones,Urine Negative (Negative); Leukocyte Esterase,Urine Large (Negative); Nitrite,Urine Negative (Negative); PH, Urine 6.5 (5.0-8.0); Protein,Urine 1+ (Negative); Specific Gravity,Urine 1.018 (1.001-1.035); Urobilinogen,Urine <2.0 mg/dL (<2.0)
[2025-03-23 14:36] LABS: Bacteria,Urine Many /hpf; Mucus,Urine Few /hpf; RBC,Urine 27 /hpf (0-5); WBC,Urine >182 /hpf (0-5)
[2025-03-23] MEDS ORDERED: NALOXONE 0.4 MG/ML 1 ML VIAL IV PRN (14:53)
[2025-03-23] MEDS ORDERED: MORPHINE SULFATE 4 MG/ML SYRINGE IV PRN (14:53)
[2025-03-23] MEDS ORDERED: ONDANSETRON 4 MG/2 ML VIAL IVP PRN (14:53)
[2025-03-23] MEDS ORDERED: HYDROcodone/APAP 5-325MG 1 EACH TAB PO PRN (14:53)
--- NOTE | 2025-03-23 15:09 | XR ---
EXAMINATION TYPE: XR chest 2V DATE OF EXAM: 03/23/2025 2:59 PM COMPARISON: Chest radiographs from 01/21/2025. CLINICAL INDICATION: Male, 80 years old with history of Weakness; TECHNIQUE: XR chest 2V Frontal and lateral views of the chest. FINDINGS: Lungs/Pleura: There is no evidence of pleural effusion, focal consolidation, or pneumothorax. Pulmonary vascularity: Unremarkable. Heart/mediastinum: Cardiomediastinal silhouette is unremarkable. Musculoskeletal: No acute osseous pathology. Posterior right rib injury. IMPRESSION: No acute cardiopulmonary disease/process. [facility], , 03/23/2025 3:07 PM
[2025-03-23] MEDS: cefTRIAXone IN SWFI 1,000 MG/10 ML SYRINGE IVP STA (15:14)
--- NOTE | 2025-03-23 16:42 | P.HPIM ---
History of Present Illness H&P Date: 03/23/25 History of present illness; patient is a 80-year-old gentleman with past medical history significant for atrial fibrillation, hyperlipidemia, hypertension presented the hospital for generalized weakness. Patient stated he was not feeling his usual self for the last 3 to 4 days. Patient stated that he has been complaining of generalized weakness. Patient said he had a Mueller placed recently that was removed couple of days ago. Following that patient stated that he was unable to pee normally. Patient also complaining of chills but there is no complaint of fever. Patient denies any abdominal pain. There was no current nausea, vomiting. Patient complaining of decreasing frequency of urination. This morning his weakness progressed to the extent that he was unable to lift himself up from the floor bathroom, daughter found him there and called EMS that brought him to the ER Initial lab work done in the ER showed WBC 26.8, hemoglobin 13.7, platelet count 161, sodium 140, potassium 4.2, BUN 64, creatinine 2.96, glucose 120, calcium 9.1, magnesium 1.8, bilirubin 1.1, proBNP 6190 albumin 3.1 UA done showed large amount of Estrace, urine WBC greater than 182 EKG done in the ER showed heart rate of 82, no ST segment elevation or depression seen, no T-wave inversions seen. Chest x-ray done in the ER showed no acute cardiopulmonary process Patient admitted to internal medicine service REVIEW OF SYSTEMS: CONSTITUTIONAL: Mentioned above. HEENT: No recent visual problems or hearing problems. Denied any sore throat. CARDIOVASCULAR: Mentioned above PULMONARY: Mentioned above GASTROINTESTINAL: No diarrhea, no nausea, no vomiting, no abdominal pain. NEUROLOGICAL: No headaches, no weakness, no numbness. HEMATOLOGICAL: Denies any bleeding or petechiae. GENITOURINARY: Mentioned above MUSCULOSKELETAL/RHEUMATOLOGICAL: Denies any joint pain, swelling, or any muscle pain. ENDOCRINE: Denies any polyuria or polydipsia. The rest of the 14-point review of systems is negative. PHYSICAL EXAMINATION: GENERAL: The patient is alert and oriented x3, not in any acute distress. Well developed, well nourished. HEENT: Pupils are round and equally reacting to light. EOMI. No scleral icterus. No conjunctival pallor. Normocephalic, atraumatic. No pharyngeal erythema. No thyromegaly. CARDIOVASCULAR: S1 and S2 present. No murmurs, rubs, or gallops. PULMONARY: Chest is clear to auscultation, no wheezing or crackles. ABDOMEN: Soft, nontender, nondistended, normoactive bowel sounds. No palpable organomegaly. MUSCULOSKELETAL: No joint swelling or deformity. EXTREMITIES: No cyanosis, clubbing, or pedal edema. NEUROLOGICAL: Gross neurological examination did not reveal any focal deficits. SKIN: No rashes. Assessment and plan Generalized weakness UTI Sepsis Acute kidney injury Hypertension history of hypothyroidism History of hyperlipidemia History of urine retention Monitor vital signs Monitor CBC Monitor CMP Continue telemetry monitoring Ordered blood cultures Order urine culture Ordered CRP Ordered ESR Ordered Pro-Hayden Order ultrasound kidney Start IV Rocephin Resume home meds Consult ID Consult nephrology Labs and medication were reviewed.. Continue same treatment. Continue with symptomatic treatment. Resume home medication. Monitor labs and vitals. DVT and GI prophylaxis. Further recommendations as per clinical course of the patient Dictation was produced using [employer] dictation software. please excuse any grammatical, word or spelling errors. Past Medical History Past Medical History: Atrial Fibrillation, Cancer, Heart Failure, Hyperlipidemia, Hypertension, Prostate Disorder, Thyroid Disorder Additional Past Medical History / Comment(s): gout, pt states he believes he has a hx of afib, but not completely sure. He states he was told by his watershed manager in [place] about it, and is not on any medications anticoagulants for it that he knows of. skin ca with removal. History of Any Multi-Drug Resistant Organisms: None Reported Past Surgical History: Prostate Surgery Additional Past Surgical History / Comment(s): TURP 2017 in [place] for BPH, hernia repair Past Anesthesia/Blood Transfusion Reactions: No Reported Reaction Past Psychological History: No Psychological Hx Reported Smoking Status: Unknown if ever smoked Past Alcohol Use History: Occasional Past Drug Use History: None Reported - Past Family History Mother Family Medical History: Cancer Additional Family Medical History / Comment(s): Breast cancer Father Family Medical History: Cancer Sister(s) Family Medical History: Cancer Medications and Allergies Home Medications Medication Instructions Recorded Confirmed Type Aspirin [Adult Low Dose Aspirin EC] 81 mg PO HS 08/13/18 03/23/25 History Levothyroxine Sodium [Synthroid] 88 mcg PO AC-BRKFST 08/13/18 03/23/25 History Pravastatin Sodium [Pravachol] 20 mg PO HS 08/13/18 03/23/25 History allopurinoL [Zyloprim] 100 mg PO DAILY 08/13/18 03/23/25 History Amlodipine Besylate/Valsartan 1 tab PO DAILY 02/29/20 03/23/25 History [Exforge 5-160 MG] hydrALAZINE HCL [Apresoline] 50 mg PO BID-W/MEALS 01/21/25 03/23/25 History Tamsulosin [Flomax] 0.4 mg PO BID 03/23/25 03/23/25 History Allergies Allergy/AdvReac Type Severity Reaction Status Date / Time No Known Allergies Allergy Verified 03/23/25 14:32 Physical Exam Vitals: Vital Signs Temp Pulse Resp BP Pulse Ox 03/23/25 16:23 75 16 107/57 95 03/23/25 15:19 97.5 F L 68 16 115/95 97 03/23/25 13:06 97 F L 75 16 110/74 97 03/23/25 12:24 97.6 F 03/23/25 10:32 97.8 F 86 22 92/51 99 Intake and Output 03/23/25 03/23/25 03/23/25 06:59 14:59 22:59 Output Total 1400 Balance -1400 Output: Urine 1400 Other: Weight 90.718 kg Results CBC & Chem 7: 03/23/25 12:26 03/23/25 12:26 Labs: Abnormal Lab Results - Last 24 Hours (Table) 03/23/25 03/23/25 03/23/25 Range/Units 12:26 12:26 12:26 WBC 26.40 H (4.50-10.00) 10*3/uL RBC 4.28 L (4.40-5.60) 10*6/uL MPV 12.3 H (9.5-12.2) fL Immature Gran # 0.49 H (0.00-0.04) 10*3/uL Neutrophils # 24.49 H (1.80-7.70) 10*3/uL Lymphocytes # 0.20 L (0.90-5.00) 10*3/uL Monocytes # 1.17 H (0.20-1.00) 10*3/uL Eosinophils # 0.00 L (0.04-0.35) 10*3/uL APTT 20.3 L (22.0-30.0) sec Chloride 111 H (98-107) mmol/L Carbon Dioxide 15 L (22-30) mmol/L BUN 64 H (9-20) mg/dL Creatinine 2.96 H (0.66-1.25) mg/dL Glucose 120 H (74-99) mg/dL Creatine Kinase 191 H (55-170) U/L Total Protein 5.8 L (6.3-8.2) g/dL Albumin 3.1 L (3.5-5.0) g/dL Urine Protein (Negative) Urine Blood (Negative) Ur Leukocyte Esterase (Negative) Urine RBC (0-5) /hpf Urine WBC (0-5) /hpf Urine Bacteria (None) /hpf Urine Mucus (None) /hpf 03/23/25 Range/Units 14:17 WBC (4.50-10.00) 10*3/uL RBC (4.40-5.60) 10*6/uL MPV (9.5-12.2) fL Immature Gran # (0.00-0.04) 10*3/uL Neutrophils # (1.80-7.70) 10*3/uL Lymphocytes # (0.90-5.00) 10*3/uL Monocytes # (0.20-1.00) 10*3/uL Eosinophils # (0.04-0.35) 10*3/uL APTT (22.0-30.0) sec Chloride (98-107) mmol/L Carbon Dioxide (22-30) mmol/L BUN (9-20) mg/dL Creatinine (0.66-1.25) mg/dL Glucose (74-99) mg/dL Creatine Kinase (55-170) U/L Total Protein (6.3-8.2) g/dL Albumin (3.5-5.0) g/dL Urine Protein 1+ H (Negative) Urine Blood Moderate H (Negative) Ur Leukocyte Esterase Large H (Negative) Urine RBC 27 H (0-5) /hpf Urine WBC >182 H (0-5) /hpf Urine Bacteria Many H (None) /hpf Urine Mucus Few H (None) /hpf
[2025-03-23] MEDS: TAMSULOSIN 0.4 MG CAP.ER.24H PO SCH (21:48)
[2025-03-23] MEDS: ASPIRIN 81 MG PO SCH (21:48)
[2025-03-23] MEDS: PRAVASTATIN SODIUM 20 MG TAB PO SCH (21:48)
[2025-03-23] MEDS: SODIUM CHLORIDE 0.9% 1,000 ML IV STA (21:48)
--- NOTE | 2025-03-23 23:01 | P.CONS ---
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 education preschool teacher the patient did have a urinary retention requiring Mueller catheter placement which was removed 2 days ago and the patient has been complaining of difficulty urination since last night has also been complaining of some burning of urine but no suprapubic or flank pain denies high-grade fever with the symptoms the patient was evaluated on presentation to the hospital the patient was afebrile no fever have been called subsequently patient was not tachycardic hypotensive or hypoxic he did have markedly 26,000 with a left shift BUN and creatinine has been elevated liver enzymes are normal urine has been positive patient was given a dose of Rocephin admit to the hospital infectious disease was consulted for further management of antibiotic therapy Review of Systems Positive point and negatives has been mentioned in the HPI, complete review of systems was performed and all other systems are negative Past Medical History Past Medical History: Atrial Fibrillation, Cancer, Heart Failure, Hyperlipidemia, Hypertension, Prostate Disorder, Thyroid Disorder Additional Past Medical History / Comment(s): gout, pt states he believes he has a hx of afib, but not completely sure. He states he was told by his hold worker in [place] about it, and is not on any medications anticoagulants for it that he knows of. skin ca with removal. History of Any Multi-Drug Resistant Organisms: None Reported Past Surgical History: Prostate Surgery Additional Past Surgical History / Comment(s): TURP 2017 in [place] for BPH, hernia repair Past Anesthesia/Blood Transfusion Reactions: No Reported Reaction Past Psychological History: No Psychological Hx Reported Smoking Status: Unknown if ever smoked Past Alcohol Use History: Occasional Past Drug Use History: None Reported - Past Family History Mother Family Medical History: Cancer Additional Family Medical History / Comment(s): Breast cancer Father Family Medical History: Cancer Sister(s) Family Medical History: Cancer Medications and Allergies Home Medications Medication Instructions Recorded Confirmed Type Aspirin [Adult Low Dose Aspirin EC] 81 mg PO HS 08/13/18 03/23/25 History Levothyroxine Sodium [Synthroid] 88 mcg PO AC-BRKFST 08/13/18 03/23/25 History Pravastatin Sodium [Pravachol] 20 mg PO HS 08/13/18 03/23/25 History allopurinoL [Zyloprim] 100 mg PO DAILY 08/13/18 03/23/25 History Amlodipine Besylate/Valsartan 1 tab PO DAILY 02/29/20 03/23/25 History [Exforge 5-160 MG] hydrALAZINE HCL [Apresoline] 50 mg PO BID-W/MEALS 01/21/25 03/23/25 History Tamsulosin [Flomax] 0.4 mg PO BID 03/23/25 03/23/25 History Allergies Allergy/AdvReac Type Severity Reaction Status Date / Time No Known Allergies Allergy Verified 03/23/25 14:32 Physical Exam Vitals: Vital Signs Temp Pulse Resp BP Pulse Ox 03/23/25 15:19 97.5 F L 68 16 115/95 97 03/23/25 13:06 97 F L 75 16 110/74 97 03/23/25 12:24 97.6 F 03/23/25 10:32 97.8 F 86 22 92/51 99 Intake and Output 03/23/25 03/23/25 03/23/25 06:59 14:59 22:59 Output Total 1400 Balance -1400 Output: Urine 1400 Other: Weight 90.718 kg GENERAL DESCRIPTION: Elderly male lying in bed, no distress. No tachypnea or accessory muscle of respiration use. HEENT: Shows Pallor , no scleral icterus. Oral mucous membrane is dry. No pharyngeal erythema or thrush NECK: Trachea central, no thyromegaly. LUNGS: Unlabored breathing. Clear to auscultation anteriorly. No wheeze or crackle. HEART: S1, S2, regular rate and rhythm. No loud murmur ABDOMEN: Soft, no tenderness , guarding or rigidity, no organomegaly EXTREMITIES: No edema of feet. SKIN: No rash, no masses palpable. NEUROLOGICAL: The patient is awake, alert, oriented x3, mood and affect normal. Results CBC & Chem 7: 03/23/25 12:26 03/23/25 12:26 Labs: Abnormal Lab Results - Last 24 Hours (Table) 03/23/25 03/23/25 03/23/25 Range/Units 12:26 12:26 12:26 WBC 26.40 H (4.50-10.00) 10*3/uL RBC 4.28 L (4.40-5.60) 10*6/uL MPV 12.3 H (9.5-12.2) fL Immature Gran # 0.49 H (0.00-0.04) 10*3/uL Neutrophils # 24.49 H (1.80-7.70) 10*3/uL Lymphocytes # 0.20 L (0.90-5.00) 10*3/uL Monocytes # 1.17 H (0.20-1.00) 10*3/uL Eosinophils # 0.00 L (0.04-0.35) 10*3/uL APTT 20.3 L (22.0-30.0) sec Chloride 111 H (98-107) mmol/L Carbon Dioxide 15 L (22-30) mmol/L BUN 64 H (9-20) mg/dL Creatinine 2.96 H (0.66-1.25) mg/dL Glucose 120 H (74-99) mg/dL Creatine Kinase 191 H (55-170) U/L Total Protein 5.8 L (6.3-8.2) g/dL Albumin 3.1 L (3.5-5.0) g/dL Urine Protein (Negative) Urine Blood (Negative) Ur Leukocyte Esterase (Negative) Urine RBC (0-5) /hpf Urine WBC (0-5) /hpf Urine Bacteria (None) /hpf Urine Mucus (None) /hpf 03/23/25 Range/Units 14:17 WBC (4.50-10.00) 10*3/uL RBC (4.40-5.60) 10*6/uL MPV (9.5-12.2) fL Immature Gran # (0.00-0.04) 10*3/uL Neutrophils # (1.80-7.70) 10*3/uL Lymphocytes # (0.90-5.00) 10*3/uL Monocytes # (0.20-1.00) 10*3/uL Eosinophils # (0.04-0.35) 10*3/uL APTT (22.0-30.0) sec Chloride (98-107) mmol/L Carbon Dioxide (22-30) mmol/L BUN (9-20) mg/dL Creatinine (0.66-1.25) mg/dL Glucose (74-99) mg/dL Creatine Kinase (55-170) U/L Total Protein (6.3-8.2) g/dL Albumin (3.5-5.0) g/dL Urine Protein 1+ H (Negative) Urine Blood Moderate H (Negative) Ur Leukocyte Esterase Large H (Negative) Urine RBC 27 H (0-5) /hpf Urine WBC >182 H (0-5) /hpf Urine Bacteria Many H (None) /hpf Urine Mucus Few H (None) /hpf Assessment and Plan (1) AROLDO (acute kidney injury) Current Visit: Yes Status: Acute Code(s): N17.9 - ACUTE KIDNEY FAILURE, UN SPECIFIED SNOMED Code(s): 01102834 (2) UTI (urinary tract infection) Current Visit: Yes Status: Acute Code(s): N39.0 - URINARY TRACT INFECTION, SITE NOT SPECIFIED SNOMED Code(s): 34370503 (3) Weakness Current Visit: Yes Status: Acute Code(s): R53.1 - WEAKNESS SNOMED Code(s): 80932559 Plan: 1patient presented to hospital with generalized weakness he also have difficulty urination as well as burning significantly positive UA with elevated white concerning for a complicated UTI likely from enteric gram-negative pathogen. 2blood and urine culture have been requested results will be followed. 3we will obtain ultrasound of the kidney bladder area to make sure no evidence of any/abnormality. 4will empirically treat the patient with Rocephin 2 g daily while waiting for the culture to finalize. We will follow on clinical condition and cultures to further adjust medication if needed Thank you for this consultation we will follow the patient along with you Dictation was produced using [employer] dictation software. please excuse any grammatical, word or spelling errors. Time with Patient: Greater than 30
[2025-03-24] MEDS: PANTOPRAZOLE 40 MG/10 ML VIAL IV SCH (08:13)
[2025-03-24] MEDS: LEVOTHYROXINE 88 MCG TAB PO SCH (08:13)
[2025-03-24] MEDS: amLODIPine 5 MG TAB PO SCH (08:13)
[2025-03-24 08:27] LABS: African American GFR (CKD) 29 (>60 ml/min/1.73 sqM); Anion Gap 10 mmol/L; Blood Urea Nitrogen 59 mg/dL (9-20); Calcium 8.6 mg/dL (8.4-10.2); Carbon Dioxide 19 mmol/L (22-30); Chloride 112 mmol/L (98-107); Glucose 92 mg/dL (74-99); Magnesium 1.7 mg/dL (1.6-2.3); Non-African American GFR(CKD) 25 (>60 ml/min/1.73 sqM); Potassium 4.2 mmol/L (3.5-5.1); Sodium 141 mmol/L (137-145)
--- NOTE | 2025-03-24 08:47 | US ---
EXAMINATION TYPE: US kidneys/renal and bladder DATE OF EXAM: 03/24/2025 COMPARISON: 10/22/2019 CLINICAL INDICATION: Male, 80 years old with history of uti and bacteremia; Hx Left renal stone and c yst; UTI with urine retention TECHNIQUE: Grayscale imaging of the bilateral kidneys and urinary bladder: FINDINGS: EXAM MEASUREMENTS: Right Kidney: 13.1 x 5.1 x 5.5 cm Left Kidney: 11.4 x 5.3 x 4.4 cm Post Void Residual Volume: NA mL Right Kidney: wnl, no evidence for hydronephrosis, mass or renal calculus. Left Kidney: Prominent renal pelvis, simple lower pole cyst redemonstrated Bladder: ? Air within and thickened newman, velarde noted Bilateral Jets seen: Yes Normal Post Void Residual: NA There is no evidence for hydronephrosis at this point in time. No nephrolithiasis is seen. No ángel s are identified. The urinary bladder is anechoic. IMPRESSION: 1. No evidence for obstructive uropathy. 2. Simple appearing left renal cyst. 3. Velarde catheter in place some gas present in the bladder lumen. [facility], , 03/24/2025 8:44 AM
--- NOTE | 2025-03-24 11:04 | P.NPCON ---
History of Present Illness - Reason for Consult acute renal failure - History of Present Illness Reason for consultation: Acute kidney injury History of present illness: Patient is a 80-year-old male seen in renal consultation for acute kidney injury. Patient's creatinine was 1.0 dated January 28, 2025. Creatinine this admission was 2.96 and is improved to 2.31. Patient came to the hospital due to generalized weakness. Patient was at a rehab facility and had a Mueller catheter due to urinary retention. He was following with urology outpatient. Recently the Mueller catheter was removed and patient was not able to void on his own. He came to the hospital and Mueller catheter had to be reinserted due to urinary retention. He is currently receiving IV fluids. Patient did receive fluid boluses in the ER as well. Patient was hypotensive with blood pressure in the systolic 90s on admission. And is now improved to 115/55 as of this morning. He was taking antihypertensives including valsartan outpatient which is currently held. Denies chest pain or shortness of breath. Oral intake fair. Admits to loose bowel movements. No vomiting. Denies history of diabetes or coronary artery disease. Denies use of nonsteroidals. Vital signs are stable. General: No acute distress. HEENT: Head exam is unremarkable. LUNGS: No audible rhonchi or wheezes. HEART: Rate and Rhythm are regular. ABDOMEN: Nontender. EXTREMITITES: No edema. Past Medical History Past Medical History: Atrial Fibrillation, Cancer, Heart Failure, Hyperlipidemia, Hypertension, Prostate Disorder, Thyroid Disorder Additional Past Medical History / Comment(s): gout, pt states he believes he has a hx of afib, but not completely sure. He states he was told by his line lead in [place] about it, and is not on any medications anticoagulants for it that he knows of. skin ca with removal. History of Any Multi-Drug Resistant Organisms: None Reported Past Surgical History: Prostate Surgery Additional Past Surgical History / Comment(s): TURP 2017 in [place] for BPH, hernia repair Past Anesthesia/Blood Transfusion Reactions: No Reported Reaction Past Psychological History: No Psychological Hx Reported Smoking Status: Unknown if ever smoked Past Alcohol Use History: Occasional Past Drug Use History: None Reported - Past Family History Mother Family Medical History: Cancer Additional Family Medical History / Comment(s): Breast cancer Father Family Medical History: Cancer Sister(s) Family Medical History: Cancer Medications and Allergies Home Medications Medication Instructions Recorded Confirmed Type Aspirin [Adult Low Dose Aspirin EC] 81 mg PO HS 08/13/18 03/23/25 History Levothyroxine Sodium [Synthroid] 88 mcg PO AC-BRKFST 08/13/18 03/23/25 History Pravastatin Sodium [Pravachol] 20 mg PO HS 08/13/18 03/23/25 History allopurinoL [Zyloprim] 100 mg PO DAILY 08/13/18 03/23/25 History Amlodipine Besylate/Valsartan 1 tab PO DAILY 02/29/20 03/23/25 History [Exforge 5-160 MG] hydrALAZINE HCL [Apresoline] 50 mg PO BID-W/MEALS 01/21/25 03/23/25 History Tamsulosin [Flomax] 0.4 mg PO BID 03/23/25 03/23/25 History Allergies Allergy/AdvReac Type Severity Reaction Status Date / Time No Known Allergies Allergy Verified 03/23/25 14:32 Physical Exam Vitals: Vital Signs Temp Pulse Pulse Resp BP BP Pulse Ox 03/24/25 07:09 98.2 F 77 18 115/55 98 03/24/25 01:35 98.1 F 67 15 110/64 95 03/23/25 20:00 98.1 F 95 16 127/51 97 03/23/25 17:45 98.0 F 66 16 108/49 97 03/23/25 16:23 75 16 107/57 95 03/23/25 15:19 97.5 F L 68 16 115/95 97 03/23/25 13:06 97 F L 75 16 110/74 97 03/23/25 12:24 97.6 F Intake and Output 03/23/25 03/24/25 03/24/25 22:59 06:59 14:59 Output Total 625 Balance -625 Output: Urine 625 Other: Voiding Method Indwelling Catheter Indwelling Catheter # Voids 1 Weight 90.718 kg Results - Lab Results Most recent lab results Calcium 8.6 mg/dL (8.4-10.2) 03/24/25 07:49 Magnesium 1.7 mg/dL (1.6-2.3) 03/24/25 07:49 03/23/25 12:26 03/24/25 07:49 Assessment and Plan Plan: Assessment: 1. Acute kidney injury secondary to ATN secondary to hypotension. Also component of urinary retention. Creatinine 2.96 on admission and is 2.31 today. Baseline creatinine near 1. 2. Urinary retention status post Mueller catheter placement. On Flomax. Urology following. No hydronephrosis noted on ultrasound. 3. Metabolic acidosis secondary to acute kidney injury. Better. 4. Benign hypertension. Blood pressure on the lower end. Plan: Maintain normal saline. Stop hydralazine. Hold amlodipine for systolic blood pressure less than 120. Avoid nephrotoxins. Continue to monitor renal function and urine output. Thank you for the consultation. I will continue to follow the patient with you during his hospital stay.
--- NOTE | 2025-03-24 11:50 | P.PN ---
Subjective 03/24/2025 Patient was admitted with obstructive uropathy and urinary tract infection secondary to obstructive uropathy. Patient is awaiting urine cultures. I do not have any repeat white count available from today. Patient's creatinine did improve from 2.96-2.31 baseline is within normal limits. Patient is presently on Rocephin awaiting urine cultures. Patient is awaiting evaluation by urology as well. Ultrasound of the kidneys pending. Patient has a Mueller catheter in place patient blood pressure is on the lower side will discontinue amlodipine. Will also discontinue morphine. Patient is already on tamsulosin. PHYSICAL EXAMINATION: GENERAL: The patient is alert and oriented x3, not in any acute distress. Well developed, well nourished. HEENT: Pupils are round and equally reacting to light. EOMI. No scleral icterus. No conjunctival pallor. Normocephalic, atraumatic. No pharyngeal erythema. No thyromegaly. CARDIOVASCULAR: S1 and S2 present. No murmurs, rubs, or gallops. PULMONARY: Chest is clear to auscultation, no wheezing or crackles. ABDOMEN: Soft, nontender, nondistended, normoactive bowel sounds. No palpable organomegaly. MUSCULOSKELETAL: No joint swelling or deformity. EXTREMITIES: No cyanosis, clubbing, or pedal edema. NEUROLOGICAL: Gross neurological examination did not reveal any focal deficits. SKIN: No rashes. Assessment and plan UTI secondary to obstructive uropathy, patient is on Rocephin Sepsis secondary to urinary tract infection Acute kidney injury Hypertension hypothyroidism hyperlipidemia urine retention Generalized weakness Monitor vital signs Monitor CBC Monitor BMP Urology evaluation Awaiting blood cultures Awaiting urine culture Awaiting ultrasound kidney Continue IV Rocephin Discontinue Norvasc Consult ID Consult nephrology Labs and medication were reviewed.. Continue same treatment. Continue with symptomatic treatment. Resume home medication. Monitor labs and vitals. DVT and GI prophylaxis. Further recommendations as per clinical course of the patient Objective - Vital Signs Vital signs: Vital Signs Temp 98.2 F 03/24/25 07:09 Pulse 77 03/24/25 07:09 Resp 18 03/24/25 07:09 BP 115/55 03/24/25 07:09 Pulse Ox 98 03/24/25 07:09 FiO2 Intake & Output 03/23/25 03/24/25 03/24/25 18:59 06:59 18:59 Output Total 1400 625 Balance -1400 -625 Weight 90.718 kg Output: Urine 1400 625 Other: Voiding Method Indwelling Catheter Indwelling Catheter # Voids 1 - Labs CBC & Chem 7: 03/23/25 12:26 03/24/25 07:49 Labs: Abnormal Lab Results - Last 24 Hours (Table) 03/23/25 03/23/25 03/23/25 Range/Units 12:26 12:26 12:26 WBC 26.40 H (4.50-10.00) 10*3/uL RBC 4.28 L (4.40-5.60) 10*6/uL MPV 12.3 H (9.5-12.2) fL Immature Gran # 0.49 H (0.00-0.04) 10*3/uL Neutrophils # 24.49 H (1.80-7.70) 10*3/uL Lymphocytes # 0.20 L (0.90-5.00) 10*3/uL Monocytes # 1.17 H (0.20-1.00) 10*3/uL Eosinophils # 0.00 L (0.04-0.35) 10*3/uL APTT 20.3 L (22.0-30.0) sec Chloride 111 H (98-107) mmol/L Carbon Dioxide 15 L (22-30) mmol/L BUN 64 H (9-20) mg/dL Creatinine 2.96 H (0.66-1.25) mg/dL Glucose 120 H (74-99) mg/dL Creatine Kinase 191 H (55-170) U/L Total Protein 5.8 L (6.3-8.2) g/dL Albumin 3.1 L (3.5-5.0) g/dL Urine Protein (Negative) Urine Blood (Negative) Ur Leukocyte Esterase (Negative) Urine RBC (0-5) /hpf Urine WBC (0-5) /hpf Urine Bacteria (None) /hpf Urine Mucus (None) /hpf 03/23/25 03/24/25 Range/Units 14:17 07:49 WBC (4.50-10.00) 10*3/uL RBC (4.40-5.60) 10*6/uL MPV (9.5-12.2) fL Immature Gran # (0.00-0.04) 10*3/uL Neutrophils # (1.80-7.70) 10*3/uL Lymphocytes # (0.90-5.00) 10*3/uL Monocytes # (0.20-1.00) 10*3/uL Eosinophils # (0.04-0.35) 10*3/uL APTT (22.0-30.0) sec Chloride 112 H (98-107) mmol/L Carbon Dioxide 19 L (22-30) mmol/L BUN 59 H (9-20) mg/dL Creatinine 2.31 H (0.66-1.25) mg/dL Glucose (74-99) mg/dL Creatine Kinase (55-170) U/L Total Protein (6.3-8.2) g/dL Albumin (3.5-5.0) g/dL Urine Protein 1+ H (Negative) Urine Blood Moderate H (Negative) Ur Leukocyte Esterase Large H (Negative) Urine RBC 27 H (0-5) /hpf Urine WBC >182 H (0-5) /hpf Urine Bacteria Many H (None) /hpf Urine Mucus Few H (None) /hpf
[2025-03-24] MEDS: SODIUM CHLORIDE 0.9% 1,000 ML IV SCH (12:12)
[2025-03-24] MEDS ORDERED: ZINC OXIDE PASTE (Z-GUARD) 1 APPLIC TOPICAL PRN (15:51)
--- NOTE | 2025-03-24 15:53 | P.PN ---
Subjective Progress Note Date: 03/24/25 Principal diagnosis: Reason for follow-up is urinary tract infection Patient is a 80-year-old male with a past medical history significant for Atrial Fibrillation, Cancer, Heart Failure, Hyperlipidemia, Hypertension, Prostate Disorder, Thyroid Disorder presenting to the hospital for evaluation of generalized weakness did have a low-grade fever elevated white count positive UA and urine symptom concerning for symptomatic UTI. On today's evaluation that is 03/24/2025, Patient is afebrile patient is currently on room air and denies having any shortness of breath, the patient denies any chest pain or cough, the patient denies any nausea vomiting did not have any abdominal pain and no diarrhea. The patient creatinine is down to 2.31 no CBC was done today cultures are pending ultrasound with no evidence for obstructive uropathy Objective - Vital Signs Vital signs: Vital Signs Temp 97.5 F L 03/24/25 13:35 Pulse 62 03/24/25 13:35 Resp 18 03/24/25 13:35 BP 107/50 03/24/25 13:35 Pulse Ox 91 L 03/24/25 13:35 FiO2 Intake & Output 03/23/25 03/24/25 03/24/25 18:59 06:59 18:59 Output Total 1400 625 Balance -1400 -625 Weight 90.718 kg Output: Urine 1400 625 Other: Voiding Method Indwelling Catheter Indwelling Catheter # Voids 1 - Exam GENERAL DESCRIPTION: An elderly male up in the chair in no distress RESPIRATORY SYSTEM: Unlabored breathing , decreased breath sounds at bases HEART: S1 S2 regular rate and rhythm , ABDOMEN: Soft , no tenderness EXTREMITIES: No edema feet - Labs CBC & Chem 7: 03/23/25 12:26 03/24/25 07:49 Labs: Abnormal Lab Results - Last 24 Hours (Table) 03/24/25 Range/Units 07:49 Chloride 112 H (98-107) mmol/L Carbon Dioxide 19 L (22-30) mmol/L BUN 59 H (9-20) mg/dL Creatinine 2.31 H (0.66-1.25) mg/dL Assessment and Plan (1) AROLDO (acute kidney injury) Current Visit: Yes Status: Acute Code(s): N17.9 - ACUTE KIDNEY FAILURE, UNSPECIFIED SNOMED Code(s): 33848186 (2) UTI (urinary tract infection) Current Visit: Yes Status: Acute Code(s): N39.0 - URINARY TRACT INFECTION, SITE NOT SPECIFIED SNOMED Code(s): 73215487 (3) Weakness Current Visit: Yes Status: Acute Code(s): R53.1 - WEAKNESS SNOMED Code(s): 49539311 Plan: 1patient presented to hospital with generalized weakness he also have difficulty urination as well as burning significantly positive UA with elevated white concerning for a complicated UTI likely from enteric gram-negative patho gen. 2blood and urine culture have been requested results will be followed. 3ultrasound of the kidney bladder area with no evidence of obstructive uropathy 4patient is currently being treated Rocephin 2 g daily while waiting for the culture to finalize we will check a CBC with a.m. lab to make sure the white count is trending down. Dictation was produced using [employer] dictation software. please excuse any grammatical, word or spelling errors. Time with Patient: Less than 30
--- NOTE | 2025-03-24 17:16 | P.GSCN ---
History of Present Illness Consult date: 03/24/25 Reason for Consult: Urinary retention History of present illness: This is an 80-year-old male admitted to the hospital with urinary retention and UTI. He is a known patient of Dr. Monsalve previous history of urinary retention underwent a TURP back in 2017 but continued to incompletely empty his bladder was on intermittent CIC which he subsequently discontinued. For the past 3 to 4 months he has been having intermittent urinary retention will require multiple catheter placements. Patient had a catheter recently removed, but he progressively had difficulty voiding in about presentation to the ER catheter was placed for return of 1.4 L of urine. He is on flomax BID. Review of Systems - Constitutional Denies fever, Denies weight loss - Cardiovascular Denies chest pain, Denies shortness of breath - Respiratory Denies cough, Denies 7 - Gastrointestinal Reports as per HPI - Genitourinary Denies dysuria, Denies hematuria Past Medical History Past Medical History: Atrial Fibrillation, Cancer, Heart Failure, Hyperlipidemia, Hypertension, Prostate Disorder, Thyroid Disorder Additional Past Medical History / Comment(s): gout, pt states he believes he has a hx of afib, but not completely sure. He states he was told by his it project manager in [place] about it, and is not on any medications anticoagulants for it that he k nows of. skin ca with removal. History of Any Multi-Drug Resistant Organisms: None Reported Past Surgical History: Prostate Surgery Additional Past Surgical History / Comment(s): TURP 2017 in [place] for BPH, hernia repair Past Anesthesia/Blood Transfusion Reactions: No Reported Reaction Past Psychological History: No Psychological Hx Reported Smoking Status: Unknown if ever smoked Past Alcohol Use History: Occasional Past Drug Use History: None Reported - Past Family History Mother Family Medical History: Cancer Additional Family Medical History / Comment(s): Breast cancer Father Family Medical History: Cancer Sister(s) Family Medical History: Cancer Medications and Allergies Home Medications Medication Instructions Recorded Confirmed Type Aspirin [Adult Low Dose Aspirin EC] 81 mg PO HS 08/13/18 03/23/25 History Levothyroxine Sodium [Synthroid] 88 mcg PO AC-BRKFST 08/13/18 03/23/25 History Pravastatin Sodium [Pravachol] 20 mg PO HS 08/13/18 03/23/25 History allopurinoL [Zyloprim] 100 mg PO DAILY 08/13/18 03/23/25 History Amlodipine Besylate/Valsartan 1 tab PO DAILY 02/29/20 03/23/25 History [Exforge 5-160 MG] hydrALAZINE HCL [Apresoline] 50 mg PO BID-W/MEALS 01/21/25 03/23/25 History Tamsulosin [Flomax] 0.4 mg PO BID 03/23/25 03/23/25 History Allergies Allergy/AdvReac Type Severity Reaction Status Date / Time No Known Allergies Allergy Verified 03/23/25 14:32 Surgical - Exam Vital Signs Temp Pulse Resp BP Pulse Ox 97.8 F 86 22 92/51 99 03/23/25 10:32 03/23/25 10:32 03/23/25 10:32 03/23/25 10:32 03/23/25 10:32 - General no distress, no pain - Eyes normal ocular movement, no pale - ENT no hearing loss, no congestion - Neck no masses, trachea midline - Respiratory normal expansion, normal respiratory effort - Abdomen Abdomen: soft, non tender, no distended Results - Labs 03/23/25 12:26 03/24/25 07:49 Abnormal Lab Results - Last 24 Hours (Table) 03/24/25 Range/Units 07:49 Chloride 112 H (98-107) mmol/L Carbon Dioxide 19 L (22-30) mmol/L BUN 59 H (9-20) mg/dL Creatinine 2.31 H (0.66-1.25) mg/dL Diabetes panel 03/24/25 Range/Units 07:49 Sodium 141 (137-145) mmol/L Potassium 4.2 (3.5-5.1) mmol/L Chloride 112 H (98-107) mmol/L Carbon Dioxide 19 L (22-30) mmol/L BUN 59 H (9-20) mg/dL Creatinine 2.31 H (0.66-1.25) mg/dL Glucose 92 (74-99) mg/dL Calcium 8.6 (8.4-10.2) mg/dL Calcium panel 03/24/25 Range/Units 07:49 Calcium 8.6 (8.4-10.2) mg/dL Pituitary panel 03/24/25 Range/Units 07:49 Sodium 141 (137-145) mmol/L Potassium 4.2 (3.5-5.1) mmol/L Chloride 112 H (98-107) mmol/L Carbon Dioxide 19 L (22-30) mmol/L BUN 59 H (9-20) mg/dL Creatinine 2.31 H (0.66-1.25) mg/dL Glucose 92 (74-99) mg/dL Calcium 8.6 (8.4-10.2) mg/dL Adrenal panel 03/24/25 Range/Units 07:49 Sodium 141 (137-145) mmol/L Potassium 4.2 (3.5-5.1) mmol/L Chloride 112 H (98-107) mmol/L Carbon Dioxide 19 L (22-30) mmol/L BUN 59 H (9-20) mg/dL Creatinine 2.31 H (0.66-1.25) mg/dL Glucose 92 (74-99) mg/dL Calcium 8.6 (8.4-10.2) mg/dL Assessment and Plan Assessment: 80-year-old male with recurrent urinary retention, with history of recurrent urinary retention and recurrent UTIs. His recurrent UTIs are most likely secondary to his incomplete bladder emptying. Renal bladder ultrasound showed no upper tract stones or hydronephrosis. At this time recommend discharging home with a Mueller catheter, will arrange for an outpatient cystoscopy and urodynamics prior to catheter removal
[2025-03-25 08:21] LABS: HCT 33.2 % (39.6-50.0); HGB 10.6 g/dL (13.0-17.0); MCH 31.1 pg (27.0-32.0); MCHC 31.9 g/dL (32.0-37.0); MCV 97.4 FL (80.0-97.0); NRBC Per 100 WBC 0 X 10*3/uL (0.00-0.01); Platelet Count 98 X 10*3/uL (140-440); RBC 3.41 X 10*6/uL (4.40-5.60); RDW 14.6 % (11.5-14.5); WBC 15.85 X 10*3/uL (4.50-10.00)
[2025-03-25 08:35] LABS: Anion Gap 10.80 mmol/L (4.00-12.00); BUN/Creat Ratio 26.67 Ratio (12.00-20.00); Blood Urea Nitrogen 56.0 mg/dL (9.0-27.0); Calcium 7.7 mg/dL (8.7-10.3); Carbon Dioxide 19.2 mmol/L (21.6-31.8); Chloride 108 mmol/L (96-109); Glucose 90 mg/dL (70-110); Potassium 3.9 mmol/L (3.5-5.5); Sodium 138 mmol/L (135-145)
--- NOTE | 2025-03-25 11:53 | P.PN ---
Subjective Patient was admitted with obstructive uropathy and urinary tract infection secondary to obstructive uropathy. Patient is awaiting urine cultures. I do not have any repeat white count available from today. Patient's creatinine did improve from 2.96-2.31 baseline is within normal limits. Patient is presently on Rocephin awaiting urine cultures. Patient is awaiting evaluation by urology as well. Ultrasound of the kidneys pending. Patient has a Mueller catheter in place patient blood pressure is on the lower side will discontinue amlodipine. Will also discontinue morphine. Patient is already on tamsulosin. 03/25 Patient looks he is improving slowly and gradually. He is open today sitting in chair. Denies any specific complaints other than generally weak. Mueller catheter in place and patient agreeable with the plan. Patient already seen by urologist and recommend to keep Mueller catheter for recurrent urinary retention as he was in the hospital for similar problem and Mueller was discontinued at that time when he follow-up with his urologist now recommendation to keep the Mueller and follow- up for outpatient cystoscopy and urodynamic studies. Patient agreeable. Patient continued on normal sinus 75 L/h, blood pressure is better and creatinine trending down 2.9 down to 2.1 with baseline 0.9-1.1. Also is on ceftriaxone and urine culture growing gram-negative bacilli Possible discharge 24 to 48 hours if he keeps improving acute urinary retention Objective - Vital Signs Vital signs: Vital Signs Temp 98.9 F 03/25/25 07:50 Pulse 79 03/25/25 07:50 Resp 19 03/25/25 07:50 BP 123/61 03/25/25 07:50 Pulse Ox 94 L 03/25/25 07:50 FiO2 Intake & Output 03/24/25 03/25/25 03/25/25 18:59 06:59 18:59 Output Total 400 400 Balance -400 -400 Output: Urine 400 400 Other: Voiding Method Indwelling Catheter Indwelling Catheter # Voids 1 - Labs CBC & Chem 7: 03/25/25 02:29 03/25/25 02:29 Labs: Abnormal Lab Results - Last 24 Hours (Table) 03/25/25 03/25/25 Range/Units 02:29 02:29 WBC 15.85 H (4.50-10.00) X 10*3/uL RBC 3.41 L (4.40-5.60) X 10*6/uL Hgb 10.6 L (13.0-17.0) g/dL Hct 33.2 L (39.6-50.0) % MCV 97.4 H (80.0-97.0) FL MCHC 31.9 L (32.0-37.0) g/dL RDW 14.6 H (11.5-14.5) % Plt Count 98 L (140-440) X 10*3/uL MPV 13.2 H (9.5-12.2) FL Carbon Dioxide 19.2 L (21.6-31.8) mmol/L BUN 56.0 H (9.0-27.0) mg/dL Creatinine 2.1 H (0.6-1.5) mg/dL Est GFR (CKD-EPI) 31 L (>=60) BUN/Creatinine Ratio 26.67 H (12.00-20.00) Ratio Calcium 7.7 L (8.7-10.3) mg/dL Microbiology - Last 24 Hours (Table) 03/23/25 14:20 Blood Culture - Preliminary Blood 03/23/25 14:17 Urine Culture - Preliminary Urine,Voided Gram Neg Bacilli Assessment and Plan Assessment: UTI secondary to obstructive uropathy, patient is on Rocephin Sepsis secondary to urinary tract infection Acute kidney injury Hypertension hypothyroidism hyperlipidemia urine retention Generalized weakness Plan: Continue with Mueller cath Urology evaluation Awaiting blood cultures Awaiting urine culture Awaiting ultrasound kidney nephrology consult Continue IV Rocephin Discontinue Norvasc Consult ID Labs and medication were review DVT and GI prophylaxis Prognosis is guarded
--- NOTE | 2025-03-25 11:56 | P.PN ---
Subjective Patient is seen for follow-up for acute kidney injury. Renal function has improved. Serum creatinine decreased to 2.1 mg/dL. Maintained on IV fluids. Objective - Vital Signs Vital signs: Vital Signs Temp 98.9 F 03/25/25 07:50 Pulse 79 03/25/25 07:50 Resp 19 03/25/25 07:50 BP 123/61 03/25/25 07:50 Pulse Ox 94 L 03/25/25 07:50 FiO2 Intake & Output 03/24/25 03/25/25 03/25/25 18:59 06:59 18:59 Output Total 400 400 Balance -400 -400 Output: Urine 400 400 Other: Voiding Method Indwelling Catheter Indwelling Catheter # Voids 1 - Exam Patient is awake, comfortable, no acute distress Examination of the heart S1 and S2 Examination of the lungs bilateral breath sounds are heard Abdomen is soft nontender Examination of lower extremity shows no significant edema - Labs CBC & Chem 7: 03/25/25 02:29 03/25/25 02:29 Labs: Abnormal Lab Results - Last 24 Hours (Table) 03/25/25 03/25/25 Range/Units 02:29 02:29 WBC 15.85 H (4.50-10.00) X 10*3/uL RBC 3.41 L (4.40-5.60) X 10*6/uL Hgb 10.6 L (13.0-17.0) g/dL Hct 33.2 L (39.6-50.0) % MCV 97.4 H (80.0-97.0) FL MCHC 31.9 L (32.0-37.0) g/dL RDW 14.6 H (11.5-14.5) % Plt Count 98 L (140-440) X 10*3/uL MPV 13.2 H (9.5-12.2) FL Carbon Dioxide 19.2 L (21.6-31.8) mmol/L BUN 56.0 H (9.0-27.0) mg/dL Creatinine 2.1 H (0.6-1.5) mg/dL Est GFR (CKD-EPI) 31 L (>=60) BUN/Creatinine Ratio 26.67 H (12.00-20.00) Ratio Calcium 7.7 L (8.7-10.3) mg/dL Microbiology - Last 24 Hours (Table) 03/23/25 14:20 Blood Culture - Preliminary Blood 03/23/25 14:17 Urine Culture - Preliminary Urine,Voided Gram Neg Bacilli Assessment and Plan Assessment: 1. Acute kidney injury secondary to ATN secondary to hypotension. Also component of urinary retention. Creatinine 2.96 on admission and is 2.1 today. Baseline creatinine near 1. 2. Urinary retention status post Mueller catheter placement. On Flomax. Urology following. No hydronephrosis noted on ultrasound. 3. Metabolic acidosis secondary to acute kidney injury. Better. 4. Benign hypertension. Blood pressure on the lower end. Plan: Continue with IV fluids Continue with Mueller catheter Continue to hold antihypertensive medications as blood pressure remains low. Continue with Flomax
[2025-03-25 14:41] VITALS: BMI 27.1
[2025-03-26 08:48] LABS: BUN/Creat Ratio 28.24 Ratio (12.00-20.00); Blood Urea Nitrogen 48.0 mg/dL (9.0-27.0); Glucose 97 mg/dL (70-110)
[2025-03-26 08:49] LABS: Anion Gap 11.90 mmol/L (4.00-12.00); Calcium 7.8 mg/dL (8.7-10.3); Carbon Dioxide 17.1 mmol/L (21.6-31.8); Chloride 109 mmol/L (96-109); Potassium 3.8 mmol/L (3.5-5.5); Sodium 138 mmol/L (135-145)
[2025-03-26 09:24] LABS: Basophils # (A) 0.03 X 10*3/uL (0.00-0.10); Basophils % (A) 0.3 %; Eosinophils # (A) 0.17 X 10*3/uL (0.04-0.35); Eosinophils % (A) 1.6 %; HCT 32.9 % (39.6-50.0); HGB 10.7 g/dL (13.0-17.0); Immature Grans, Automated 1.20 %; Lymphocytes # (A) 0.43 X 10*3/uL (0.90-5.00); Lymphocytes % (A) 4.0 %; MCH 31.2 pg (27.0-32.0); MCHC 32.5 g/dL (32.0-37.0); MCV 95.9 FL (80.0-97.0); Monocytes # (A) 0.71 X 10*3/uL (0.20-1.00); Monocytes % (A) 6.7 %; NRBC Per 100 WBC 0 X 10*3/uL (0.00-0.01); Neutrophils # (A) 9.19 X 10*3/uL (1.80-7.70); Neutrophils % (A) 86.2 %; Platelet Count 94 X 10*3/uL (140-440); RBC 3.43 X 10*6/uL (4.40-5.60); RBC Morphology Normal (Normal); RDW 14.3 % (11.5-14.5); WBC 10.66 X 10*3/uL (4.50-10.00)
--- NOTE | 2025-03-26 10:11 | P.CONS ---
History of Present Illness - Reason for Consult Consult date: 03/26/25 rehab recommendation - Chief Complaint debility - History of Present Illness Mr Rafael Hui is an 80 y/o right handed male who lives in a single story home with 3 scot. His , Joanna, is currently at [facility] for rehab after a stroke. Patient ambulates with 4ww, and reports he was able to perform bathing and dressing. Neither him or his have driven since September, family assisting as needed. Plan is to transition to [facility] for [facility] with . Patient presented to [facility] on 03/23/25 for generalized weakness. Per ED notes, patients daughter found the patient on the floor in his bedroom and was unable to get up on his own. He reports he did not fall. Patient apparently had his velarde catheter removed a couple days prior and was able to urinate afterwards. US of kidneys was ordered, velarde catheter was replaced for urinary retention with obstructive uropathy. He was started on abx for UTI, gram negative bacilli. Outpatient cystoscopy was recommended. PM&R consulted for rehab recommendations. Patient seen by therapies, Min A with bathing, UB dressing supervision, LB dressing mod A, grooming supervision, Bed mobility Mod I, gait 20 ft min A 2ww ?: Patient states he is doing ok, does feel weak overall but better. He denies LYNCH, vision changes, dizziness, CP, SOB, and abdominal pain. Reports LBM yesterday, has a velarde catheter. No pain complaints. DW patient and his daughter Izabella over the telephone rehab plans. She would like the patient to go to [facility] in [place] for BRENDON, patent is in agreement. Review of Systems reviewed, as above in subjective Past Medical History Past Medical History: Atrial Fibrillation, Cancer, Heart Failure, Hyperlipid emia, Hypertension, Prostate Disorder, Thyroid Disorder Additional Past Medical History / Comment(s): gout, pt states he believes he has a hx of afib, but not completely sure. 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 skin ca with removal. History of Any Multi-Drug Resistant Organisms: None Reported Past Surgical History: Prostate Surgery Additional Past Surgical History / Comment(s): TURP 2017 in [place] for BPH, hernia repair Past Anesthesia/Blood Transfusion Reactions: No Reported Reaction Past Psychological History: No Psychological Hx Reported Smoking Status: Unknown if ever smoked Past Alcohol Use History: Occasional Past Drug Use History: None Reported - Past Family History Mother Family Medical History: Cancer Additional Family Medical History / Comment(s): Breast cancer Father Family Medical History: Cancer Sister(s) Family Medical History: Cancer Medications and Allergies Home Medications Medication Instructions Recorded Confirmed Type Aspirin [Adult Low Dose Aspirin EC] 81 mg PO HS 08/13/18 03/23/25 History Levothyroxine Sodium [Synthroid] 88 mcg PO AC-BRKFST 08/13/18 03/23/25 History Pravastatin Sodium [Pravachol] 20 mg PO HS 08/13/18 03/23/25 History allopurinoL [Zyloprim] 100 mg PO DAILY 08/13/18 03/23/25 History Amlodipine Besylate/Valsartan 1 tab PO DAILY 02/29/20 03/23/25 History [Exforge 5-160 MG] hydrALAZINE HCL [Apresoline] 50 mg PO BID-W/MEALS 01/21/25 03/23/25 History Tamsulosin [Flomax] 0.4 mg PO BID 03/23/25 03/23/25 History Allergies Allergy/AdvReac Type Severity Reaction Status Date / Time No Known Allergies Allergy Verified 03/23/25 14:32 Physical Exam Vitals: Vital Signs Temp Pulse Resp BP BP Pulse Ox 03/26/25 07:56 98.0 F 64 17 153/70 03/26/25 02:05 98.7 F 77 17 130/62 95 03/25/25 19:35 98.3 F 63 17 144/75 94 L 03/25/25 15:49 98.0 F 78 18 109/63 95 Intake and Output 03/25/25 03/26/25 03/26/25 22:59 06:59 14:59 Intake Total 500 Output Total 400 575 Balance -400 -75 Intake: Oral 500 Output: Urine 400 575 Other: Voiding Method Indwelling Catheter # Voids 3 General: WDWN elderly male, laying in bed, alert, NAD HEENT: head normocephalic, atraumatic; moist mucous membranes, external ears intact with hearing intact to conversational speech CV: no acute cardiac distress Lungs: even and non labored respirations on RA Abdomen: soft, NT, ND : velarde catheter intact MSK: full ROM bilateral UE and LEs, LE weakness and decreased hip ROM MMT: B/L SABD 4-4+/5 with encouragement, EE/EF/HG 4+/5; B/L HF ?, KE 4-4+/5 with encouragement, DF 5-/5 Neuro: CN 2-12 grossly intact Sensation intact to light touch bilateral UE and LEs Coordination: HTS limited due to hip ROM Psych: mood calm, affect appropriate, A&O x 2 ( reported at rehab and unsure of month) Extremities: calves supple, non tender, no LE edema Skin: intact where exposed except for UE IV and scattered ecchymosis of UE Results CBC & Chem 7: 03/26/25 02:40 03/26/25 02:40 Labs: Abnormal Lab Results - Last 24 Hours (Table) 03/26/25 03/26/25 Range/Units 02:40 02:40 WBC 10.66 H (4.50-10.00) X 10*3/uL RBC 3.43 L (4.40-5.60) X 10*6/uL Hgb 10.7 L (13.0-17.0) g/dL Hct 32.9 L (39.6-50.0) % Plt Count 94 L (140-440) X 10*3/uL MPV 13.6 H (9.5-12.2) FL Immature Gran # 0.13 H (0.00-0.04) X 10*3/uL Neutrophils # 9.19 H (1.80-7.70) X 10*3/uL Lymphocytes # 0.43 L (0.90-5.00) X 10*3/uL Carbon Dioxide 17.1 L (21.6-31.8) mmol/L BUN 48.0 H (9.0-27.0) mg/dL Creatinine 1.7 H (0.6-1.5) mg/dL Est GFR (CKD-EPI) 40 L (>=60) BUN/Creatinine Ratio 28.24 H (12.00-20.00) Ratio Calcium 7.8 L (8.7-10.3) mg/dL Microbiology - Last 24 Hours (Table) 03/23/25 14:17 Urine Culture - Final Urine,Voided Escherichia coli Klebsiella pneumoniae 03/23/25 14:20 Blood Culture Gram Stain - Preliminary Blood Blood Culture - Preliminary Molecular ID Assessment and Plan Assessment: #Sepsis secondary to obstructive uropathy -Rocephin, flomax #Generalized weakness secondary to above #AROLDO secondary to ATN secondary to hypotension -Cr 2.96 on admission #Obstructive Uropathy and UTI, gram negative bacilli #Urinary Retention #Metabolic acidosis secondary to AROLDO #Afib #Pain Management -Tylenol 650 mg Q 6 hrs prn, [place] 5/325 mg Q 4 hrs prn #DVT Proph -ASA #Comorbidities: heart failure, HLD, HTN, prostate disorder s/p TURP, hypothyroidism, gout, skin cancer #Your medical dx and management Dispo: Patient is noted to be below baseline function, would benefit from a structured rehab, DW patient and his daughter Izabella. Plan is for patient and his to transition to [facility], therefore would like patient to do his rehab at [facility]. Left message for [employer] Patient seen and examined in collaboration with Dr Gambino. Thank you for consulting our services.
--- NOTE | 2025-03-26 11:04 | P.PN ---
Subjective Patient was admitted with obstructive uropathy and urinary tract infection secondary to obstructive uropathy. Patient is awaiting urine cultures. I do not have any repeat white count available from today. Patient's creatinine did improve from 2.96-2.31 baseline is within normal limits. Patient is presently on Rocephin awaiting urine cultures. Patient is awaiting evaluation by urology as well. Ultrasound of the kidneys pending. Patient has a Mueller catheter in place patient blood pressure is on the lower side will discontinue amlodipine. Will also discontinue morphine. Patient is already on tamsulosin. 03/25 Patient looks he is improving slowly and gradually. He is open today sitting in chair. Denies any specific complaints other than generally weak. Mueller catheter in place and patient agreeable with the plan. Patient already seen by urologist and recommend to keep Mueller catheter for recurrent urinary retention as he was in the hospital for similar problem and Mueller was discontinued at that time when he follow-up with his urologist now recommendation to keep the Mueller and follow- up for outpatient cystoscopy and urodynamic studies. Patient agreeable. Patient continued on normal sinus 75 L/h, blood pressure is better and creatinine trending down 2.9 down to 2.1 with baseline 0.9-1.1. Also is on ceftriaxone and urine culture growing gram-negative bacilli Possible discharge 24 to 48 hours if he keeps improving acute urinary retention 03/26 Patient overall doing well No new complaint Still generally weak, family caseworker on the case. Patient evaluated by IPR evaluation consult with PMR, the place patient request to go will not take him to the Tuesday Urine culture growing sensitive E. coli and Klebsiella. Blood cultures came back positive today and is pending Patient remains on broad-spectrum antibiotic with ceftriaxone He remains on sodium bicarb creatinine trending down to 1.7 today Objective - Vital Signs Vital signs: Vital Signs Temp 98.0 F 03/26/25 07:56 Pulse 64 03/26/25 07:56 Resp 17 03/26/25 07:56 BP 153/70 03/26/25 07:56 Pulse Ox 95 03/26/25 02:05 FiO2 Intake & Output 03/25/25 03/26/25 03/26/25 18:59 06:59 18:59 Intake Total 500 Output Total 650 975 Balance -650 -475 Weight 90.718 kg Intake: Oral 500 Output: Urine 650 975 Other: Voiding Method Indwelling Catheter # Voids 3 - Exam -GENERAL: The patient is alert and oriented x3, not in any acute distress. Well developed, well nourished. Generally weak HEENT: Pupils are round and equally reacting to light. EOMI. No scleral icterus. No conjunctival pallor. Normocephalic, atraumatic. No pharyngeal erythema. No thyromegaly. CARDIOVASCULAR: S1 and S2 present. No murmurs, rubs, or gallops. PULMONARY: Chest is clear to auscultation, no wheezing , no crackles. ABDOMEN: Soft, nontender, nondistended, normoactive bowel sounds. No palpable organomegaly. MUSCULOSKELETAL: No joint swelling or deformity. EXTREMITIES: No cyanosis, clubbing, or pedal edema. NEUROLOGICAL: Gross neurological examination did not reveal any focal deficits. SKIN: No rashes. no petechiae. - Labs CBC & Chem 7: 03/26/25 02:40 03/26/25 02:40 Labs: Abnormal Lab Results - Last 24 Hours (Table) 03/26/25 03/26/25 Range/Units 02:40 02:40 WBC 10.66 H (4.50-10.00) X 10*3/uL RBC 3.43 L (4.40-5.60) X 10*6/uL Hgb 10.7 L (13.0-17.0) g/dL Hct 32.9 L (39.6-50.0) % Plt Count 94 L (140-440) X 10*3/uL MPV 13.6 H (9.5-12.2) FL Immature Gran # 0.13 H (0.00-0.04) X 10*3/uL Neutrophils # 9.19 H (1.80-7.70) X 10*3/uL Lymphocytes # 0.43 L (0.90-5.00) X 10*3/uL Carbon Dioxide 17.1 L (21.6-31.8) mmol/L BUN 48.0 H (9.0-27.0) mg/dL Creatinine 1.7 H (0.6-1.5) mg/dL Est GFR (CKD-EPI) 40 L (>=60) BUN/Creatinine Ratio 28.24 H (12.00-20.00) Ratio Calcium 7.8 L (8.7-10.3) mg/dL Microbiology - Last 24 Hours (Table) 03/23/25 14:20 Blood Culture Gram Stain - Preliminary Blood Blood Culture - Preliminary Klebsiella pneum subsp pneum Molecular ID 03/23/25 14:17 Urine Culture - Final Urine,Voided Escherichia coli Klebsiella pneumoniae Assessment and Plan Assessment: UTI secondary to obstructive uropathy, patient is on Rocephin Sepsis secondary to urinary tract infection Bacteremia Acute kidney injury Hypertension hypothyroidism hyperlipidemia urine retention Generalized weakness Plan: Continue with Mueller cath Urology evaluation Awaiting blood cultures Awaiting urine culture Awaiting ultrasound kidney nephrology consult Continue IV Rocephin Discontinue Norvasc Consult ID Labs and medication were review DVT and GI prophylaxis Prognosis is guarded
[2025-03-26] MEDS: DEXTROSE 5% IN WATER 1,000 ML with SODIUM BICARB (1 MEQ/ML) 150 ML IV SCH (11:33)
--- NOTE | 2025-03-26 13:46 | P.PN ---
Subjective Patient is seen for follow-up for acute kidney injury. Renal function has improved. Serum creatinine decreased to 1.7 mg/dL. Maintained on IV fluids. Objective - Vital Signs Vital signs: Vital Signs Temp 98.4 F 03/26/25 13:19 Pulse 64 03/26/25 13:19 Resp 17 03/26/25 13:19 BP 141/64 03/26/25 13:19 Pulse Ox 95 03/26/25 02:05 FiO2 Intake & Output 03/25/25 03/26/25 03/26/25 18:59 06:59 18:59 Intake Total 500 Output Total 650 975 Balance -650 -475 Weight 90.718 kg Intake: Oral 500 Output: Urine 650 975 Other: Voiding Method Indwelling Catheter Indwelling Catheter # Voids 3 - Exam Patient is awake, comfortable, no acute distress Examination of the heart S1 and S2 Examination of the lungs bilateral breath sounds are heard Abdomen is soft nontender Examination of lower extremity shows no significant edema - Labs CBC & Chem 7: 03/26/25 02:40 03/26/25 02:40 Labs: Abnormal Lab Results - Last 24 Hours (Table) 03/26/25 03/26/25 Range/Units 02:40 02:40 WBC 10.66 H (4.50-10.00) X 10*3/uL RBC 3.43 L (4.40-5.60) X 10*6/uL Hgb 10.7 L (13.0-17.0) g/dL Hct 32.9 L (39.6-50.0) % Plt Count 94 L (140-440) X 10*3/uL MPV 13.6 H (9.5-12.2) FL Immature Gran # 0.13 H (0.00-0.04) X 10*3/uL Neutrophils # 9.19 H (1.80-7.70) X 10*3/uL Lymphocytes # 0.43 L (0.90-5.00) X 10*3/uL Carbon Dioxide 17.1 L (21.6-31.8) mmol/L BUN 48.0 H (9.0-27.0) mg/dL Creatinine 1.7 H (0.6-1.5) mg/dL Est GFR (CKD-EPI) 40 L (>=60) BUN/Creatinine Ratio 28.24 H (12.00-20.00) Ratio Calcium 7.8 L (8.7-10.3) mg/dL Microbiology - Last 24 Hours (Table) 03/23/25 14:20 Blood Culture Gram Stain - Preliminary Blood Blood Culture - Preliminary Klebsiella pneum subsp pneum Molecular ID 03/23/25 14:17 Urine Culture - Final Urine,Voided Escherichia coli Klebsiella pneumoniae Assessment and Plan Assessment: 1. Acute kidney injury secondary to ATN secondary to hypotension. Also component of urinary retention. Creatinine 2.96 on admission and is 1.7 today. Baseline creatinine near 1. 2. Urinary retention status post Mueller catheter placement. On Flomax. Urology following. No hydronephrosis noted on ultrasound. 3. Metabolic acidosis secondary to acute kidney injury. 4. Benign hypertension. Blood pressure on the lower end. Plan: Continue with IV fluids. Switch to IV bicarb Continue with Mueller catheter Continue to hold antihypertensive medications as blood pressure remains low. Continue with Flomax
--- NOTE | 2025-03-26 15:58 | P.PN ---
Subjective Progress Note Date: 03/25/25 Principal diagnosis: Reason for follow-up is urinary tract infection Patient is a 80-year-old male with a past medical history significant for Atrial Fibrillation, Cancer, Heart Failure, Hyperlipidemia, Hypertension, Prostate Disorder, Thyroid Disorder presenting to the hospital for evaluation of generalized weakness did have a low-grade fever elevated white count positive UA and urine symptom concerning for symptomatic UTI. On today's evaluation that is 03/25/2025, patient has been afebrile, patient is breathing comfortably and is currently on room air, patient denies having any chest pain and cough, patient denies nausea vomiting or diarrhea and no abdominal pain. Patient white count is down to 15.85 creatinine is 2.1 blood pressure positive for Klebsiella Objective - Vital Signs Vital signs: Vital Signs Temp 98.9 F 03/25/25 07:50 Pulse 79 03/25/25 07:50 Resp 19 03/25/25 07:50 BP 123/61 03/25/25 07:50 Pulse Ox 94 L 03/25/25 07:50 FiO2 Intake & Output 03/24/25 03/25/25 03/25/25 18:59 06:59 18:59 Output Total 400 400 650 Balance -400 -400 -650 Output: Urine 400 400 650 Other: Voiding Method Indwelling Catheter Indwelling Catheter # Voids 1 - Exam GENERAL DESCRIPTION: An elderly male up in the chair in no distress RESPIRATORY SYSTEM: Unlabored breathing , decreased breath sounds at bases HEART: S1 S2 regular rate and rhythm , ABDOMEN: Soft , no tenderness EXTREMITIES: No edema feet - Labs CBC & Chem 7: 03/26/25 02:40 03/26/25 02:40 Labs: Abnormal Lab Results - Last 24 Hours (Table) 03/25/25 03/25/25 Range/Units 02:29 02:29 WBC 15.85 H (4.50-10.00) X 10*3/uL RBC 3.41 L (4.40-5.60) X 10*6/uL Hgb 10.6 L (13.0-17.0) g/dL Hct 33.2 L (39.6-50.0) % MCV 97.4 H (80.0-97.0) FL MCHC 31.9 L (32.0-37.0) g/dL RDW 14.6 H (11.5-14.5) % Plt Count 98 L (140-440) X 10*3/uL MPV 13.2 H (9.5-12.2) FL Carbon Dioxide 19.2 L (21.6-31.8) mmol/L BUN 56.0 H (9.0-27.0) mg/dL Creatinine 2.1 H (0.6-1.5) mg/dL Est GFR (CKD-EPI) 31 L (>=60) BUN/Creatinine Ratio 26.67 H (12.00-20.00) Ratio Calcium 7.7 L (8.7-10.3) mg/dL Microbiology - Last 24 Hours (Table) 03/23/25 14:20 Blood Culture - Preliminary Blood 03/23/25 14:17 Urine Culture - Preliminary Urine,Voided Gram Neg Bacilli Assessment and Plan (1) AROLDO (acute kidney injury) Current Visit: Yes Status: Acute Code(s): N17.9 - ACUTE KIDNEY FAILURE, UNSPECIFIED SNOMED Code(s): 96857371 (2) UTI (urinary tract infection) Current Visit: Yes Status: Acute Code(s): N39.0 - URINARY TRACT INFECTION, SITE NOT SPECIFIED SNOMED Code(s): 05359166 (3) Weakness Current Visit: Yes Status: Acute Code(s): R53.1 - WEAKNESS SNOMED Code(s): 79956772 Plan: 1patient presented to hospital with generalized weakness he also have difficulty urination as well as burning significantly positive UA with elevated white concerning for a complicated UTI likely from enteric gram-negative pathogen. 2blood and urine culture have been requested results will be followed. 3ultrasound of the kidney bladder area with no evidence of obstructive uropathy 4patient did have a positive blood culture with Klebsiella source likely urinar y 5- the patient is afebrile white count is trending down we will continue the patient on Rocephin while waiting for the sensitivity on the Klebsiella in the blood Dictation was produced using [employer] dictation software. please excuse any grammatical, word or spelling errors. Time with Patient: Less than 30
--- NOTE | 2025-03-26 15:58 | P.PN ---
Subjective Progress Note Date: 03/26/25 Principal diagnosis: Reason for follow-up is urinary tract infection Patient is a 80-year-old male with a past medical history significant for Atrial Fibrillation, Cancer, Heart Failure, Hyperlipidemia, Hypertension, Prostate Disorder, Thyroid Disorder presenting to the hospital for evaluation of generalized weakness did have a low-grade fever elevated white count positive UA and urine symptom concerning for symptomatic UTI. On today's evaluation that is 03/26/2025, Patient is afebrile this morning patient denies having any chest pain shortness of breath or cough, the patient is currently on room air, patient denies any abdominal pain no diarrhea no nausea no vomiting. The patient white count is down to 10.66 creatinine is 1.7, urine culture with E. coli and Klebsiella both sensitive to ceftriaxone Objective - Vital Signs Vital signs: Vital Signs Temp 98.0 F 03/26/25 07:56 Pulse 64 03/26/25 07:56 Resp 17 03/26/25 07:56 BP 153/70 03/26/25 07:56 Pulse Ox 95 03/26/25 02:05 FiO2 Intake & Output 03/25/25 03/26/25 03/26/25 18:59 06:59 18:59 Intake Total 500 Output Total 650 975 Balance -650 -475 Weight 90.718 kg Intake: Oral 500 Output: Urine 650 975 Other: Voiding Method Indwelling Catheter Indwelling Catheter # Voids 3 - Exam GENERAL DESCRIPTION: An elderly male up in the chair in no distress RESPIRATORY SYSTEM: Unlabored breathing , decreased breath sounds at bases HEART: S1 S2 regular rate and rhythm , ABDOMEN: Soft , no tenderness EXTREMITIES: No edema feet - Labs CBC & Chem 7: 03/26/25 02:40 03/26/25 02:40 Labs: Abnormal Lab Results - Last 24 Hours (Table) 03/26/25 03/26/25 Range/Units 02:40 02:40 WBC 10.66 H (4.50-10.00) X 10*3/uL RBC 3.43 L (4.40-5.60) X 10*6/uL Hgb 10.7 L (13.0-17.0) g/dL Hct 32.9 L (39.6-50.0) % Plt Count 94 L (140-440) X 10*3/uL MPV 13.6 H (9.5-12.2) FL Immature Gran # 0.13 H (0.00-0.04) X 10*3/uL Neutrophils # 9.19 H (1.80-7.70) X 10*3/uL Lymphocytes # 0.43 L (0.90-5.00) X 10*3/uL Carbon Dioxide 17.1 L (21.6-31.8) mmol/L BUN 48.0 H (9.0-27.0) mg/dL Creatinine 1.7 H (0.6-1.5) mg/dL Est GFR (CKD-EPI) 40 L (>=60) BUN/Creatinine Ratio 28.24 H (12.00-20.00) Ratio Calcium 7.8 L (8.7-10.3) mg/dL Microbiology - Last 24 Hours (Table) 03/23/25 14:20 Blood Culture Gram Stain - Preliminary Blood Blood Culture - Preliminary Klebsiella pneum subsp pneum Molecular ID 03/23/25 14:17 Urine Culture - Final Urine,Voided Escherichia coli Klebsiella pneumoniae Assessment and Plan (1) AROLDO (acute kidney injury) Current Visit: Yes Status: Acute Code(s): N17.9 - ACUTE KIDNEY FAILURE, UNSPECIFIED SNOMED Code(s): 56523198 (2) UTI (urinary tract infection) Current Visit: Yes Status: Acute Code(s): N39.0 - URINARY TRACT INFECTION, SITE NOT SPECIFIED SNOMED Code(s): 91003393 (3) Weakness Current Visit: Yes Status: Acute Code(s): R53.1 - WEAKNESS SNOMED Code(s): 50220437 (4) Bacteremia Current Visit: Yes Status: Acute Code(s): R78.81 - BACTEREMIA SNOMED Code(s): 5738082 Plan: 1patient presented to hospital with generalized weakness he also have difficulty urination as well as burning significantly positive UA with elevated white concerning for a complicated UTI likely from enteric gram-negative pathogen. 2blood and urine culture have been requested results will be followed. 3ultrasound of the kidney bladder area with no evidence of obstructive uropathy 4patient did have a positive blood culture with Klebsiella source likely urinary 5- the patient is afebrile white count is trending down 6we will continue the patient on Rocephin while waiting for the sensitivity on the Klebsiella in the blood to determine discharge antibiotics likely oral Dictation was produced using [employer] dictation software. please excuse any grammatical, word or spelling errors. Time with Patient: Less than 30
[2025-03-26] MEDS: ACETAMINOPHEN TAB 325 MG TAB PO PRN (20:29)
[2025-03-27 11:41] LABS: African American GFR (CKD) 54 (>60 ml/min/1.73 sqM); Anion Gap 7 mmol/L; Blood Urea Nitrogen 36 mg/dL (9-20); Calcium 8.3 mg/dL (8.4-10.2); Carbon Dioxide 28 mmol/L (22-30); Chloride 100 mmol/L (98-107); Glucose 111 mg/dL (74-99); Non-African American GFR(CKD) 47 (>60 ml/min/1.73 sqM); Potassium 3.6 mmol/L (3.5-5.1); Sodium 135 mmol/L (137-145)
--- NOTE | 2025-03-27 12:41 | P.PN ---
Subjective Patient is seen for follow-up for acute kidney injury. Renal function has improved. Serum creatinine decreased to 1.39 mg/dL. Maintained on IV fluids. Objective - Vital Signs Vital signs: Vital Signs Temp 98.8 F 03/27/25 08:10 Pulse 60 03/27/25 08:10 Resp 18 03/27/25 08:10 BP 164/67 03/27/25 08:10 Pulse Ox 97 03/27/25 08:10 FiO2 Intake & Output 03/26/25 03/27/25 03/27/25 18:59 06:59 18:59 Intake Total 1205 1080 Output Total 1065 575 Balance 140 505 Intake: Intake, IV Titration 725 Amount Dextrose 5% in Water 1, 525 000 ml @ 75 mls/hr IV . [id number] WES with Sodium Bicarb (1 Meq/ml) 150 ml Rx#:[id number] Sodium Chloride 0.9% 1, 150 000 ml @ 75 mls/hr IV . [id number] WES Rx#:[id number] cefTRIAXone 2 gm In 50 Sodium Chloride 0.9% 50 ml @ 100 mls/hr IVPB Q24HR@1300 WES Rx#: [id number] Oral 480 1080 Output: Urine 1065 575 Other: Voiding Method Indwelling Catheter Indwelling Catheter Indwelling Catheter - Exam Patient is awake, comfortable, no acute distress Examination of the heart S1 and S2 Examination of the lungs bilateral breath sounds are heard Abdomen is soft nontender Examination of lower extremity shows no significant edema - Labs CBC & Chem 7: 03/26/25 02:40 03/27/25 10:22 Labs: Abnormal Lab Results - Last 24 Hours (Table) 03/27/25 Range/Units 10:22 Sodium 135 L (137-145) mmol/L BUN 36 H (9-20) mg/dL Creatinine 1.39 H (0.66-1.25) mg/dL Glucose 111 H (74-99) mg/dL Calcium 8.3 L (8.4-10.2) mg/dL Microbiology - Last 24 Hours (Table) 03/23/25 14:20 Blood Culture Gram Stain - Final Blood Blood Culture - Final Klebsiella pneum subsp pneum Molecular ID Assessment and Plan Assessment: 1. Acute kidney injury secondary to ATN secondary to hypotension. Also component of urinary retention. Creatinine 2.96 on admission and is 1.7 today. Baseline creatinine near 1. 2. Urinary retention status post Muelelr catheter placement. On Flomax. Urology following. No hydronephrosis noted on ultrasound. 3. Metabolic acidosis secondary to acute kidney injury. 4. Benign hypertension. Blood pressure on the lower end. Plan: Continue with IV fluids. DC bicarb drip Continue with Mueller catheter Continue to hold antihypertensive medications as blood pressure remains low. Continue with Flomax
[2025-03-27] MEDS: LACTATED RINGERS 1,000 ML IV SCH (12:50)
--- NOTE | 2025-03-28 01:23 | P.PN ---
Subjective Patient was admitted with obstructive uropathy and urinary tract infection secondary to obstructive uropathy. Patient is awaiting urine cultures. I do not have any repeat white count available from today. Patient's creatinine did improve from 2.96-2.31 baseline is within normal limits. Patient is presently on Rocephin awaiting urine cultures. Patient is awaiting evaluation by urology as well. Ultrasound of the kidneys pending. Patient has a Mueller catheter in place patient blood pressure is on the lower side will discontinue amlodipine. Will also discontinue morphine. Patient is already on tamsulosin. 03/25 Patient looks he is improving slowly and gradually. He is open today sitting in chair. Denies any specific complaints other than generally weak. Mueller catheter in place and patient agreeable with the plan. Patient already seen by urologist and recommend to keep Mueller catheter for recurrent urinary retention as he was in the hospital for similar problem and Mueller was discontinued at that time when he follow-up with his urologist now recommendation to keep the Mueller and follow- up for outpatient cystoscopy and urodynamic studies. Patient agreeable. Patient continued on normal sinus 75 L/h, blood pressure is better and creatinine trending down 2.9 down to 2.1 with baseline 0.9-1.1. Also is on ceftriaxone and urine culture growing gram-negative bacilli Possible discharge 24 to 48 hours if he keeps improving acute urinary retention 03/26 Patient overall doing well No new complaint Still generally weak, nurse case management on the case. Patient evaluated by IPR evaluation consult with PMR, the place patient request to go will not take him to the Tuesday Urine culture growing sensitive E. coli and Klebsiella. Blood cultures came back positive today and is pending Patient remains on broad-spectrum antibiotic with ceftriaxone He remains on sodium bicarb creatinine trending down to 1.7 today 03/27 Patient feels generally weak No other significant symptoms Creatinine improving down to 1.39 on IV fluid, lowered chloride elected to 60 mL/h Remains on ceftriaxone with Klebsiella growing in the urine and blood cultures Will need special placement upon discharge in the community Discussed with nurse case management Objective - Vital Signs Vital signs: Vital Signs Temp 98.8 F 03/27/25 08:10 Pulse 60 03/27/25 08:10 Resp 18 03/27/25 08:10 BP 164/67 03/27/25 08:10 Pulse Ox 97 03/27/25 08:10 FiO2 Intake & Output 03/26/25 03/27/25 03/27/25 18:59 06:59 18:59 Intake Total 1205 1080 Output Total 1065 575 Balance 140 505 Intake: Intake, IV Titration 725 Amount Dextrose 5% in Water 1, 525 000 ml @ 75 mls/hr IV . [id number] WES with Sodium Bicarb (1 Meq/ml) 150 ml Rx#:[id number] Sodium Chloride 0.9% 1, 150 000 ml @ 75 mls/hr IV . [id number] WES Rx#:[id number] cefTRIAXone 2 gm In 50 Sodium Chloride 0.9% 50 ml @ 100 mls/hr IVPB Q24HR@1300 WES Rx#: [id number] Oral 480 1080 Output: Urine 1065 575 Other: Voiding Method Indwelling Catheter Indwelling Catheter Indwelling Catheter - Exam -GENERAL: The patient is alert and oriented x3, not in any acute distress. Well developed, well nourished. Generally weak HEENT: Pupils are round and equally reacting to light. EOMI. No scleral icterus. No conjunctival pallor. Normocephalic, atraumatic. No pharyngeal erythema. No thyromegaly. CARDIOVASCULAR: S1 and S2 present. No murmurs, rubs, or gallops. PULMONARY: Chest is clear to auscultation, no wheezing , no crackles. ABDOMEN: Soft, nontender, nondistended, normoactive bowel sounds. No palpable organomegaly. MUSCULOSKELETAL: No joint swelling or deformity. EXTREMITIES: No cyanosis, clubbing, or pedal edema. NEUROLOGICAL: Gross neurological examination did not reveal any focal deficits. SKIN: No rashes. no petechiae. - Labs CBC & Chem 7: 03/26/25 02:40 03/27/25 10:22 Labs: Abnormal Lab Results - Last 24 Hours (Table) 03/27/25 Range/Units 10:22 Sodium 135 L (137-145) mmol/L BUN 36 H (9-20) mg/dL Creatinine 1.39 H (0.66-1.25) mg/dL Glucose 111 H (74-99) mg/dL Calcium 8.3 L (8.4-10.2) mg/dL Microbiology - Last 24 Hours (Table) 07/05/25 14:20 Blood Culture Gram Stain - Final Blood Blood Culture - Final Klebsiella pneum subsp pneum Molecular ID Assessment and Plan Assessment: UTI secondary to obstructive uropathy, patient is on Rocephin Sepsis secondary to urinary tract infection Bacteremia Acute kidney injury Hypertension hypothyroidism hyperlipidemia urine retention Generalized weakness Plan: Continue with Mueller cath Urology evaluation Awaiting blood cultures Awaiting urine culture Awaiting ultrasound kidney nephrology consult Continue IV Rocephin Discontinue Norvasc Consult ID Labs and medication were review DVT and GI prophylaxis Prognosis is guarded
--- NOTE | 2025-03-28 08:18 | P.PN ---
Subjective Progress Note Date: 03/27/25 Principal diagnosis: Reason for follow-up is urinary tract infection Patient is a 80-year-old male with a past medical history significant for Atrial Fibrillation, Cancer, Heart Failure, Hyperlipidemia, Hypertension, Prostate Disorder, Thyroid Disorder presenting to the hospital for evaluation of generalized weakness did have a low-grade fever elevated white count positive UA and urine symptom concerning for symptomatic UTI. On today's evaluation that is 03/27/2025,the patient denies any fever or any chills, patient is breathing comfortably on room air, the patient denies chest pain shortness of breath and no significant cough, patient denies abdominal pain, no nausea vomiting or diarrhea. Patient creatinine is down to 1.39 no CBC was done today blood and urine with Klebsiella sensitive to ceftriaxone Objective - Vital Signs Vital signs: Vital Signs Temp 98.8 F 03/27/25 08:10 Pulse 60 03/27/25 08:10 Resp 18 03/27/25 08:10 BP 164/67 03/27/25 08:10 Pulse Ox 97 03/27/25 08:10 FiO2 Intake & Output 03/26/25 03/27/25 03/27/25 18:59 06:59 18:59 Intake Total 1205 1080 Output Total 1065 575 Balance 140 505 Intake: Intake, IV Titration 725 Amount Dextrose 5% in Water 1, 525 000 ml @ 75 mls/hr IV . [id number] [facility] with Sodium Bicarb (1 Meq/ml) 150 ml Rx#:[id number] Sodium Chloride 0.9% 1, 150 000 ml @ 75 mls/hr IV . [id number] [facility] Rx#:[id number] cefTRIAXone 2 gm In 50 Sodium Chloride 0.9% 50 ml @ 100 mls/hr IVPB Q24HR@1300 [facility] Rx#: [id number] Oral 480 1080 Output: Urine 1065 575 Other: Voiding Method Indwelling Catheter Indwelling Catheter Indwelling Catheter - Exam GENERAL DESCRIPTION: An elderly male up in the chair in no distress RESPIRATORY SYSTEM: Unlabored breathing , decreased breath sounds at bases HEART: S1 S2 regular rate and rhythm , ABDOMEN: Soft , no tenderness EXTREMITIES: No edema feet - Labs CBC & Chem 7: 03/26/25 02:40 03/27/25 10:22 Labs: Abnormal Lab Results - Last 24 Hours (Table) 03/27/25 Range/Units 10:22 Sodium 135 L (137-145) mmol/L BUN 36 H (9-20) mg/dL Creatinine 1.39 H (0.66-1.25) mg/dL Glucose 111 H (74-99) mg/dL Calcium 8.3 L (8.4-10.2) mg/dL Microbiology - Last 24 Hours (Table) 03/23/25 14:20 Blood Culture Gram Stain - Final Blood Blood Culture - Final Klebsiella pneum subsp pneum Molecular ID Assessment and Plan (1) AROLDO (acute kidney injury) Current Visit: Yes Status: Acute Code(s): N17.9 - ACUTE KIDNEY FAILURE, UNSPECIFIED SNOMED Code(s): 31872181 (2) UTI (urinary tract infection) Current Visit: Yes Status: Acute Code(s): N39.0 - URINARY TRACT INFECTION, SITE NOT SPECIFIED SNOMED Code(s): 18447219 (3) Weakness Current Visit: Yes Status: Acute Code(s): R53.1 - WEAKNESS SNOMED Code(s): 47931587 (4) Bacteremia Current Visit: Yes Status: Acute Code(s): R78.81 - BACTEREMIA SNOMED Code(s): 5192090 Plan: 1patient presented to hospital with generalized weakness he also have difficulty urination as well as burning significantly positive UA with elevated white concerning for a complicated UTI likely from enteric gram-negative pathogen. 2blood and urine culture have been requested results will be followed. 3ultrasound of the kidney bladder area with no evidence of obstructive uropathy 4patient did have a positive blood culture with Klebsiella source likely urinary 5- the patient is afebrile white count is trending down as of yesterday no CBC was done today 6we will continue the patient on Rocephin while inpatient and will transition to oral antibiotic on discharge Dictation was produced using [employer] dictation software. please excuse any grammatical, word or spelling errors. Time with Patient: Less than 30
[2025-03-28 08:37] VITALS: RESP 18
--- NOTE | 2025-03-28 13:24 | P.PN ---
Subjective Patient is seen for follow-up for acute kidney injury. Renal function has improved. Serum creatinine decreased to 1.39 mg/dL yesterday. Maintained on IV fluids. Objective - Vital Signs Vital signs: Vital Signs Temp 98.7 F 03/28/25 07:21 Pulse 62 03/28/25 07:21 Resp 18 03/28/25 07:21 BP 150/63 03/28/25 07:21 Pulse Ox 93 L 03/28/25 07:21 FiO2 Intake & Output 03/27/25 03/28/25 03/28/25 18:59 06:59 18:59 Intake Total 540 Output Total 650 650 Balance -650 -110 Intake: Oral 540 Output: Urine 650 650 Other: Voiding Method Indwelling Catheter Indwelling Catheter Indwelling Catheter - Exam Patient is awake, comfortable, no acute distress Examination of the heart S1 and S2 Examination of the lungs bilateral breath sounds are heard Abdomen is soft nontender Examination of lower extremity shows 1+ edema - Labs CBC & Chem 7: 03/26/25 02:40 03/27/25 10:22 Assessment and Plan Assessment: 1. Acute kidney injury secondary to ATN secondary to hypotension. Also component of urinary retention. Creatinine 2.96 on admission and is 1.3 today. Baseline creatinine near 1. 2. Urinary retention status post Mueller catheter placement. On Flomax. Urology following. No hydronephrosis noted on ultrasound. 3. Metabolic acidosis secondary to acute kidney injury. 4. Benign hypertension. Blood pressure was low, now improved Plan: May resume antihypertensive medications if blood pressure remains elevated. Continue with Flomax
[2025-03-28 14:54] VITALS: BP 129/64; PULSE 73; TEMP 98
--- NOTE | 2025-03-28 15:19 | P.DS ---
Providers Date of admission: 03/23/25 16:39 Attending physician: Solo Vaz MD Consults: 03/23/25 15:02 Consult Physician Urgent Consulting Provider: Alessandro Edwards Consult Reason/Comments: UTI Do you want consulting provider notified?: Yes 03/23/25 16:38 Consult Physician Routine Consulting Provider: Monica Pittman Consult Reason/Comments: AROLDO Do you want consulting provider notified?: Yes 03/24/25 11:48 Consult Physician Routine Consulting Provider: Rafael Monsalve Consult Reason/Comments: recurrent urinary retention with uti's Do you want consulting provider notified?: Yes 03/25/25 15:18 Consult Physician Routine Consulting Provider: Jono Son Consult Reason/Comments: IPR Do you want consulting provider notified?: Yes Primary care physician: Benigno Epps Hospital Course: Diagnoses: UTI secondary to obstructive uropathy, patient is on Rocephin Sepsis secondary to urinary tract infection Bacteremia Acute kidney injury Hypertension hypothyroidism hyperlipidemia urine retention Generalized weakness Hospital course: Patient was admitted with obstructive uropathy and urinary tract infection secondary to obstructive uropathy. Patient was have acute urinary tract infection with acute kidney injury. Patient states he has recurrent acute urinary retention status post Mueller catheter. Patient evaluated by infectious disease team automation engineer and urologist. Patient showed interval improvement in his mentation improved still generally weak and somewhat mildly lethargic requiring rehab upon discharge and he is agreeable to. He denies chest pain or dyspnea no specific urinary symptoms. No diarrhea. Tolerates that well. Patient was cleared for discharge by all consultants including infectious disease urologist and automation engineer. Patient will be discharged on oral antibiotics as per ID team Problems and management plan were discussed with the patient and he verbalized understanding and acceptance Patient was found stable and can be discharged home in guarded prognosis however he needs follow-up as an outpatient. Patient was instructed to follow up with PCP within one week and patient agrees patient instructed to follow-up with automation engineer Dr. Pittman in [address] Hunt in 1 week. Patient may require cystoscopy as an outpatient patient informed note: Patient antihypertensive medications of Norvasc 5 mg, valsartan 160 mg and hydralazine 50 mg twice daily were held because of acute kidney injury although it is improving. May resume antihypertensive medications if blood pressure remains elevated. Physical exam -Gen: patient is a AAOx3, no distress. Generally weak CVS: S1-S2, RRR, no murmur Lungs: B/L CTA, no wheezing Abdomen: soft, no distention, no tenderness, positive bowel sounds Extremity: no leg edema or induration Time spent more than 35 minutes Plan - Discharge Summary Discharge Rx Participant: No New Discharge Prescriptions: New Acetaminophen Tab [Tylenol] 650 mg PO Q6HR PRN tab PRN Reason: Mild Pain Or Fever > 100.5 cefuroxime axetiL [Ceftin] 500 mg PO BID #20 tab Continue Tamsulosin [Flomax] 0.4 mg PO BID Discontinued Amlodipine Besylate/Valsartan [Exforge 5-160 MG] 1 tab PO DAILY hydrALAZINE HCL [Apresoline] 50 mg PO BID-W/MEALS No Action Pravastatin Sodium [Pravachol] 20 mg PO HS Levothyroxine Sodium [Synthroid] 88 mcg PO AC-BRKFST allopurinoL [Zyloprim] 100 mg PO DAILY Aspirin [Adult Low Dose Aspirin EC] 81 mg PO HS Discharge Medication List Aspirin [Adult Low Dose Aspirin EC] 81 mg PO HS 08/13/18 [History] Levothyroxine Sodium [Synthroid] 88 mcg PO AC-BRKFST 08/13/18 [History] Pravastatin Sodium [Pravachol] 20 mg PO HS 08/13/18 [History] allopurinoL [Zyloprim] 100 mg PO DAILY 08/13/18 [History] Tamsulosin [Flomax] 0.4 mg PO BID 03/23/25 [History] Acetaminophen Tab [Tylenol] 650 mg PO Q6HR PRN tab 03/28/25 [Rx] cefuroxime axetiL [Ceftin] 500 mg PO BID #20 tab 03/28/25 [Rx] Follow up Appointment(s)/Referral(s): Monica Pittman MD [STAFF PHYSICIAN] - 1 Week Benigno Epps MD [Primary Care Provider] - 1-2 days Alessandro Edwards MD [STAFF PHYSICIAN] - 1 Week Rafael Monsalve MD [STAFF PHYSICIAN] - 1 Week (outpatient cystoscopy and urodynamics prior to catheter removal) Activity/Diet/Wound Care/Special Instructions: [facility] Heart healthy diet Activity as tolerated
[2025-03-28] MEDS: CEFDINIR 300 MG CAP PO SCH (15:57)
--- NOTE | 2025-03-29 15:13 | P.PN ---
Subjective Progress Note Date: 03/28/25 Principal diagnosis: Reason for follow-up is urinary tract infection Patient is a 80-year-old male with a past medical history significant for Atrial Fibrillation, Cancer, Heart Failure, Hyperlipidemia, Hypertension, Prostate Disorder, Thyroid Disorder presenting to the hospital for evaluation of generalized weakness did have a low-grade fever elevated white count positive UA and urine symptom concerning for symptomatic UTI. On today's evaluation that is 03/28/2025,the patient remains to be afebrile, patient is on room air not requiring supplemental oxygen and denies any shortness of breath no chest pain or cough.Patient denies having any nausea or vomiting, no abdominal pain and no diarrhea has been reported. No new lab has been obtained today Objective - Vital Signs Vital signs: Vital Signs Temp 98.7 F 03/28/25 07:21 Pulse 62 03/28/25 07:21 Resp 18 03/28/25 07:21 BP 150/63 03/28/25 07:21 Pulse Ox 93 L 03/28/25 07:21 FiO2 Intake & Output 03/27/25 03/28/25 03/28/25 18:59 06:59 18:59 Intake Total 540 Output Total 650 650 Balance -650 -110 Weight 90.718 kg Intake: Oral 540 Output: Urine 650 650 Other: Voiding Method Indwelling Catheter Indwelling Catheter Indwelling Catheter - Exam GENERAL DESCRIPTION: An elderly male up in the chair in no distress RESPIRATORY SYSTEM: Unlabored breathing , decreased breath sounds at bases HEART: S1 S2 regular rate and rhythm , ABDOMEN: Soft , no tenderness EXTREMITIES: No edema feet - Labs CBC & Chem 7: 03/26/25 02:40 03/27/25 10:22 Assessment and Plan (1) AROLDO (acute kidney injury) Status: Acute Code(s): N17.9 - ACUTE KIDNEY FAILURE, UNSPECIFIED SNOMED Code(s): 92688938 (2) UTI (urinary tract infection) Status: Acute Code(s): N39.0 - URINARY TRACT INFECTION, SITE NOT SPECIFIED SNOMED Code(s): 14770688 (3) Weakness Status: Acute Code(s): R53.1 - WEAKNESS SNOMED Code(s): 76854255 (4) Bacteremia Status: Acute Code(s): R78.81 - BACTEREMIA SNOMED Code(s): 6812709 Plan: 1patient presented to hospital with generalized weakness he also have difficult y urination as well as burning significantly positive UA with elevated white concerning for a complicated UTI likely from enteric gram-negative pathogen. 2blood and urine culture have been requested results will be followed. 3ultrasound of the kidney bladder area with no evidence of obstructive uropathy 4patient did have a positive blood culture with Klebsiella source likely urinary 5- the patient is afebrile white count is trending down on last check, no CBC was done today 6to finish therapy with the 10-day course of oral Ceftin discharge medication has been added to his discharge instruction care discussed with the family at bedside Dictation was produced using [employer] software. please excuse any grammatical, word or spelling errors.
== END 2025-03-28 15:58 | DRG 871 ==
LOC: EC 10:18 → OBSVTOIN 16:39 → 4SSUR 16:39
PROVIDERS: ADMIT Internal Medicine; ATTEND Internal Medicine
DX: A41.51 Sepsis due to Escherichia coli [E. coli] (principal); N17.0 Acute kidney failure with tubular necrosis; E87.20 Acidosis, unspecified; I11.0 Hypertensive heart disease with heart failure; E03.9 Hypothyroidism, unspecified; N13.8 Other obstructive and reflux uropathy; N39.0 Urinary tract infection, site not specified; I50.9 Heart failure, unspecified; I48.91 Unspecified atrial fibrillation; N40.1 Benign prostatic hyperplasia with lower urinary tract symptoms; R39.14 Feeling of incomplete bladder emptying; R33.8 Other retention of urine; I95.9 Hypotension, unspecified; E78.5 Hyperlipidemia, unspecified; M10.9 Gout, unspecified; Z79.82 Long term (current) use of aspirin; Z79.890 Hormone replacement therapy; Z79.899 Other long term (current) drug therapy; Z87.440 Personal history of urinary (tract) infections; Z85.828 Personal history of other malignant neoplasm of skin
CPT/HCPCS: 36415; 51702; 51798; 71046; 76770; 80048; 80053; 81001; 82550; 83605; 83735; 83880; 85025; 85027; 85610; 85730; 87040; 87077; 87086; 87186; 93005; 96361; 96372; 96374; 99285